=== PATIENT | female | born 1965 | race Caucasian/White ===

== ENCOUNTER 2018-05-09 13:01 | Inpatient (IN) ==
[2018-05-09] MEDS ORDERED: Haloperidol Lactate 5 MG/ML VIAL IM ONE (13:27)
--- NOTE | 2018-05-09 13:27 | Emergency Department Note ---
Disposition Clinical Impression: Suicidal ideation, Elevated troponin, MICHELE (acute kidney injury) Altered mental status Qualifiers: Altered mental status type: unspecified Qualified Code(s): R41.82 - Altered mental status, unspecified Disposition: Admitted As Inpatient Condition: Fair Altered Mental Status HPI - General Chief Complaint: ED Altered Mental Status Stated Complaint: AMS Time Seen by Provider: 05/09/18 13:08 Source: EMS Mode of arrival: EMS Limitations: altered mental status Nursing Notes Reviewed: Yes Vital Signs Reviewed: Yes - History of Present Illness HPI Narrative: 52-year-old female history of anxiety, depression, hypertension, seizures, intracranial aneurysm with clipping 3 years ago who presents to the ER due to altered mental status. History is obtained by her son. States he last spoke to her on the phone at 5 PM yesterday. She was mentating normal at that time. He went to her house today and found her altered. States that her weekly medications were missing from her pill counter that he makes. Denies a prior history of her trying to injure herself. The patient states that they lost his brother roughly 2 years ago and she has been speaking about him more lately. At the time of arrival the patient is alert however she requires frequent redirection and does not follow commands. She voiced in the room that she no longer wanted to live. History is unobtainable in any other way. complaint: altered mental status Onset (ago): day(s) Time: 17:00 Timing confirmed by: family member Context: history psychiatric disease - Related Data Home Medications Medication Instructions Recorded Confirmed DULoxetine [Cymbalta] 90 mg PO DAILY 05/09/18 05/09/18 Donepezil [Aricept] 5 mg PO HS 05/09/18 05/09/18 Famotidine [Pepcid] 20 mg PO BID 05/09/18 05/09/18 Folic Acid 1 mg PO DAILY 05/09/18 05/09/18 Gabapentin [Neurontin] 1,200 mg PO TID 05/09/18 05/09/18 LevETIRAcetam [Keppra] 500 mg PO Q12H 05/09/18 05/09/18 Levothyroxine [Synthroid] 100 mcg PO Q48H 05/09/18 05/09/18 Levothyroxine [Synthroid] 112 mcg PO Q48H 05/09/18 05/09/18 Lisinopril [Zestril] 5 mg PO DAILY 05/09/18 05/09/18 Melatonin [Melatin] 3 mg PO HS 05/09/18 05/09/18 Metoprolol [Lopressor] 12.5 mg PO BID 05/09/18 05/09/18 Pravastatin Sodium 10 mg PO QPM 05/09/18 05/09/18 Topiramate [Topamax] 25 mg PO BID 05/09/18 05/09/18 diazePAM [Valium] 5 mg PO TID PRN 05/09/18 05/09/18 traZODone [TraZODone] 50 mg PO HS PRN 05/09/18 05/09/18 Allergies Allergy/AdvReac Type Severity Reaction Status Date / Time Sulfa (Sulfonamide AdvReac Hives Verified 05/09/18 13:14 Antibiotics) Limitations: ROS unobtainable due to patients medical condition Past Medical History - Past Medical History Attestation: Yes The following information was validated with the patient. Source: old records reviewed, obtained from family Medical history: Reports: arthritis, CVA, diabetes, GERD, hyperlipidemia, hypertension, thyroid disease, other Surgical history: Reports: other (Surgical history includes what is described as a craniotomy) Psychiatric history: Reports: anxiety, depression - Social History Smoking Status: Current every day smoker Smokeless Tobacco Status: No Alcohol use: Reports: none Drug use: Reports: none Physical Exam - General Limitations: altered mental status General appearance: alert, anxious - Head Head exam: atraumatic, normocephalic, normal inspection - Eye Eye exam: Present: normal appearance - ENT ENT exam: normal exam - Neck Neck exam: Present: normal inspection - Chest Chest inspection: Present: normal inspection, symmetric chest wall rise - Respiratory Respiratory exam: Present: normal lung sounds bilaterally - Cardiovascular Cardiovascular exam: Present: regular rate, normal rhythm, normal heart sounds - Abdominal Exam Abdominal exam: Present: soft. Absent: distention, rigidity - Extremities Exam Extremities exam: Present: normal inspection, full ROM - Expanded Upper Extremity Exam Shoulder exam: Present: normal inspection, full ROM Arm exam: Present: normal inspection, full ROM Elbow exam: Present: normal inspection, full ROM Forearm/Wrist exam: Present: normal inspection, full ROM Hand exam: Present: normal inspection, full ROM - Expanded Lower Extremity Exam Hip/Pelvis exam: Present: normal inspection, full ROM Upper leg exam: Present: normal inspection, full ROM Knee exam: Present: normal inspection, full ROM Lower leg exam: Present: normal inspection, full ROM Ankle exam: Present: normal inspection, full ROM Foot/toe exam: Present: normal inspection, full ROM - Neurological Exam Neurological exam: Present: alert, other (Patient does not follow commands. She moves all extremities equally. Requires frequent redirection.) - Psychiatric Psychiatric exam: Present: anxious, suicidal ideation - Expanded Psychiatric Exam Expanded psych exam: Present: flight of ideas, uncooperative - Skin Skin exam: Present: warm, dry Course Course Narrative: Patient seen and examined. Vital signs reviewed. Spoke with the quality technician fiberglass to obtain a medication list as the patient's son is unfamiliar with all of her medications. Plan for EKG, CT head given her prior history of intracranial aneurysm, labs, urinalysis. Patient is pink slipped for concern for possible drug ingestion and voicing suicidal thoughts. Vital Signs Temperature 97.8 F 05/09/18 13:07 Pulse Rate 80 05/09/18 13:07 Respiratory Rate 16 05/09/18 13:07 Blood Pressure 123/76 05/09/18 13:07 O2 Sat by Pulse Oximetry 100 05/09/18 13:07 Temperature 97.8 F 05/09/18 13:07 Pulse Rate 67 05/09/18 15:47 Respiratory Rate 17 05/09/18 15:47 Blood Pressure 113/79 05/09/18 15:47 O2 Sat by Pulse Oximetry 99 05/09/18 15:47 Oxygen Delivery Oxygen Delivery Room Air Altered Mental Status - [facility] Narrative Medical decision making narrative: 52-year-old female presents due to altered mental status. There was concern that she had multiple drug ingestions as her pills were missing at home for the end of the week. She voices here that she no longer wants to live. There are life stressors going on in her life with the anniversary of her son passing 2 years ago coming up. He would not Yolanda stable here. Her workup demonstrates a normal head CT with postsurgical changes. She does have renal insufficiency which appears new as well as an elevated troponin of 0.06 with a normal- appearing EKG. Intervals are within normal limits. Patient was given IV fluids. Case discussed with the hospitalist. Admitted for medical observation and psychiatric evaluation. - Lab Data Lab results reviewed: Yes I reviewed the patient's lab results. Result diagrams: 05/09/18 13:34 05/09/18 14:24 Lab Results 05/09/18 05/09/18 05/09/18 Range/Units 13:25 13:34 14:24 WBC 7.9 (4.3-11.1) K/mcL RBC 5.05 H (3.82-4.97) M/mcL Hgb 16.2 H (11.5-15.4) g/dL Hct 46.4 H (35.3-44.9) % MCV 91.9 (83.0-100.0) fL MCH 32.1 (28.0-33.3) pg MCHC 34.9 (31.6-35.5) g/dL RDW 13.1 (11.5-14.5) % Plt Count 382 (140-400) K/mcL MPV 10.1 (9.4-12.4) fL Immature Gran % 0.8 (0-4) % Seg Neutrophils % 71.8 % Lymphocytes % 15.3 % Monocytes % 7.2 % Eosinophils % 3.9 % Basophils % 1.0 % Neutrophils # 5.7 (1.6-8.9) K/mcL Lymphocytes # 1.2 (0.6-4.6) K/mcL Monocytes # 0.6 (0.0-1.3) K/mcL Eosinophils # 0.3 (0.0-0.6) K/mcL Basophils # 0.1 (0.0-0.2) K/mcL PT 11.6 (9.4-12.1) Seconds INR 1.0 APTT 29.4 (26.0-36.0) Seconds Sodium 138 (136-145) mEq/L Potassium 3.0 L (3.5-5.1) mEq/L Chloride 110 H (98-107) mEq/L Carbon Dioxide 19 L (23-29) mEq/L BUN 37 H (6-20) mg/dL Creatinine 2.36 H (0.60-1.20) mg/dL Est GFR ( Amer) 26 L (> 60) Est GFR (Non-Af Amer) 22 L (> 60) BUN/Creatinine Ratio 16 (6-26) Glucose 91 (70-105) mg/dL Calculated Osmolality 294 (280-300) Calcium 8.7 (8.6-10.3) mg/dL Magnesium 1.9 (1.6-2.6) mg/dL Total Bilirubin 0.4 (0.3-1.0) mg/dL Direct Bilirubin 0.2 (0.0-0.2) mg/dL Indirect Bilirubin 0.2 (0.0-1.2) mg/dL AST 15 (13-39) Units/L ALT 18 (7-52) Units/L Alkaline Phosphatase 43 (34-104) Units/L Ammonia (16-53) mcmol/L Troponin I 0.06 H* (< 0.04) ng/mL Serum Total Protein 6.7 (6.4-8.9) g/dL Albumin 3.9 (3.5-5.7) g/dL Globulin 2.8 (2.4-3.5) g/dL Albumin/Globulin Ratio 1.4 (1.1-2.2) TSH 0.865 (0.340-5.600) mcIU/mL Urine Color (Yellow) Urine Clarity (Clear) Urine pH (5.0-8.0) pH Units Ur Specific Liguori (1.010-1.025) Urine Protein (Neg-Trace) mg/dL Urine Glucose (UA) (Normal) mg/dL Urine Ketones (Negative) mg/dL Urine Blood (Negative) Urine Nitrite (Negative) Urine Bilirubin (Negative) Urine Urobilinogen (Normal) mg/dL Ur Leukocyte Esterase (Negative) Urine Microscopic RBC (0-3) per hpf Urine Microscopic WBC (0-3) per hpf Ur Squamous Epith Cells (None-Few) per lpf Urine Bacteria (None-Few) per hpf Hyaline Casts (None-Few) per lpf Ur Culture Indicated? (NO) Salicylates < 2.5 L (15.0-30.0) mg/dL Urine Opiates Screen (Ihfyvf=458) ng/mL Acetaminophen < 10 L (10-20) mcg/mL Ur Barbiturates Screen (Dsidyb=501) ng/mL Ur Phencyclidine Scrn (Cutoff=25) ng/mL Ur Amphetamines Screen (Frfwru=9901) ng/mL U Benzodiazepines Scrn (Ewfxny=570) ng/mL Urine Cocaine Screen (Cutoff= 300) ng/mL U Marijuana (THC) Screen (Cutoff = 50) ng/mL Ur Drug Screen Interp Ethyl Alcohol < 10 (Less than 10) mg/dL 05/09/18 05/09/18 05/09/18 Range/Units 15:10 15:10 15:33 WBC (4.3-11.1) K/mcL RBC (3.82-4.97) M/mcL Hgb (11.5-15.4) g/dL Hct (35.3-44.9) % MCV (83.0-100.0) fL MCH (28.0-33.3) pg MCHC (31.6-35.5) g/dL RDW (11.5-14.5) % Plt Count (140-400) K/mcL MPV (9.4-12.4) fL Immature Gran % (0-4) % Seg Neutrophils % % Lymphocytes % % Monocytes % % Eosinophils % % Basophils % % Neutrophils # (1.6-8.9) K/mcL Lymphocytes # (0.6-4.6) K/mcL Monocytes # (0.0-1.3) K/mcL Eosinophils # (0.0-0.6) K/mcL Basophils # (0.0-0.2) K/mcL PT (9.4-12.1) Seconds INR APTT (26.0-36.0) Seconds Sodium (136-145) mEq/L Potassium (3.5-5.1) mEq/L Chloride (98-107) mEq/L Carbon Dioxide (23-29) mEq/L BUN (6-20) mg/dL Creatinine (0.60-1.20) mg/dL Est GFR ( Amer) (> 60) Est GFR (Non-Af Amer) (> 60) BUN/Creatinine Ratio (6-26) Glucose (70-105) mg/dL Calculated Osmolality (280-300) Calcium (8.6-10.3) mg/dL Magnesium (1.6-2.6) mg/dL Total Bilirubin (0.3-1.0) mg/dL Direct Bilirubin (0.0-0.2) mg/dL Indirect Bilirubin (0.0-1.2) mg/dL AST (13-39) Units/L ALT (7-52) Units/L Alkaline Phosphatase (34-104) Units/L Ammonia 34 (16-53) mcmol/L Troponin I (< 0.04) ng/mL Serum Total Protein (6.4-8.9) g/dL Albumin (3.5-5.7) g/dL Globulin (2.4-3.5) g/dL Albumin/Globulin Ratio (1.1-2.2) TSH (0.340-5.600) mcIU/mL Urine Color Yellow (Yellow) Urine Clarity Cloudy A (Clear) Urine pH 5.0 (5.0-8.0) pH Units Ur Specific Liguori 1.014 (1.010-1.025) Urine Protein Negative (Neg-Trace) mg/dL Urine Glucose (UA) Normal (Normal) mg/dL Urine Ketones Negative (Negative) mg/dL Urine Blood Negative (Negative) Urine Nitrite Negative (Negative) Urine Bilirubin Negative (Negative) Urine Urobilinogen Normal (Normal) mg/dL Ur Leukocyte Esterase Negative (Negative) Urine Microscopic RBC 5-15 H (0-3) per hpf Urine Microscopic WBC 0-3 (0-3) per hpf Ur Squamous Epith Cells Many H (None-Few) per lpf Urine Bacteria Many H (None-Few) per hpf Hyaline Casts None Seen (None-Few) per lpf Ur Culture Indicated? NO (NO) Salicylates (15.0-30.0) mg/dL Urine Opiates Screen Negative (Lqgysk=306) ng/mL Acetaminophen (10-20) mcg/mL Ur Barbiturates Screen Negative (Hckgoy=705) ng/mL Ur Phencyclidine Scrn Negative (Cutoff=25) ng/mL Ur Amphetamines Screen Positive H (Yuoroh=9402) ng/mL U Benzodiazepines Scrn Positive H (Kktmna=470) ng/mL Urine Cocaine Screen Negative (Cutoff= 300) ng/mL U Marijuana (THC) Screen Positive H (Cutoff = 50) ng/mL Ur Drug Screen Interp See Below Ethyl Alcohol (Less than 10) mg/dL - Radiology Data Radiology results reviewed: Yes I reviewed the patient's radiology results. Chest X-Ray 05/09/18 13:25 IMPRESSION: 1. No active pulmonary disease. D/ / Nikko Mcknight MD / Nikko Mcknight MD Interpreting Provider: Nikko Mcknight MD Head CT 05/09/18 13:26 IMPRESSION: 1. No acute intracranial abnormality. 2. Embolization coils are again seen in the region of the basilar artery is well as an aneurysm clip within the left middle cranial fossa. 3. 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 D/ / Ayo Escobar MD / Ayo Escobar MD Interpreting Provider: Ayo Escobar MD - EKG Data EKG attestation: Yes I reviewed and interpreted this EKG. EKG results narrative: EKG demonstrates normal sinus rhythm rate 74 bpm. Normal axis. Normal intervals. Normal R-wave progression. No gross ST elevations or depressions. No acute ischemic findings. No significant changes from previous EKG dated 02/27. TPA Checklist - LKW: 3-4.5 hrs Add. Warnings/Precautions Patient/family understanding: The patient/family members have been counseled and understood the risk, benefit , and alternatives of treatment. S.B.AEvie - Joao.B.AEvie Situation: Demographics, MOA Background: Presenting Complaint, Relevant PMH, Meds, & Allergies Assessment: Course and respsone to treatment, Exam Concerns, Patient/Family Expectation, Pertinant Lab Results Recommendation: Barrier(s) to disposition, Recommendation based on pending studies, treatments, or consults S.B.A.RRoldan Report Given to: Dr. Alirio Gan Repor Time: 16:32
[2018-05-09] MEDS ORDERED: 0.9 % Sodium Chloride 1,000 ML IVC ONE ×2 (13:29→16:13)
--- NOTE | 2018-05-09 13:59 | Emergency Department Note ---
Disposition Clinical Impression: Suicidal ideation, Elevated troponin, MICHELE (acute kidney injury) Altered mental status Qualifiers: Altered mental status type: unspecified Qualified Code(s): R41.82 - Altered mental status, unspecified Disposition: Admitted As Inpatient Condition: Fair General Adult HPI - General Chief complaint: ED Altered Mental Status Stated complaint: AMS Time Seen by Provider: 05/09/18 13:08 Source: EMS Mode of arrival: ambulatory Limitations: no limitations Nursing Notes Reviewed: Yes Vital Signs Reviewed: Yes - History of Present Illness Pain Scale: 0 - Related Data Home Medications Medication Instructions Recorded Confirmed DULoxetine [Cymbalta] 90 mg PO DAILY 05/09/18 05/09/18 Donepezil [Aricept] 5 mg PO HS 05/09/18 05/09/18 Famotidine [Pepcid] 20 mg PO BID 05/09/18 05/09/18 Folic Acid 1 mg PO DAILY 05/09/18 05/09/18 Gabapentin [Neurontin] 1,200 mg PO TID 05/09/18 05/09/18 LevETIRAcetam [Keppra] 500 mg PO Q12H 05/09/18 05/09/18 Levothyroxine [Synthroid] 100 mcg PO Q48H 05/09/18 05/09/18 Levothyroxine [Synthroid] 112 mcg PO Q48H 05/09/18 05/09/18 Lisinopril [Zestril] 5 mg PO DAILY 05/09/18 05/09/18 Melatonin [Melatin] 3 mg PO HS 05/09/18 05/09/18 Metoprolol [Lopressor] 12.5 mg PO BID 05/09/18 05/09/18 Pravastatin Sodium 10 mg PO QPM 05/09/18 05/09/18 Topiramate [Topamax] 25 mg PO BID 05/09/18 05/09/18 diazePAM [Valium] 5 mg PO TID PRN 05/09/18 05/09/18 traZODone [TraZODone] 50 mg PO HS PRN 05/09/18 05/09/18 Allergies Allergy/AdvReac Type Severity Reaction Status Date / Time Sulfa (Sulfonamide AdvReac Hives Verified 05/09/18 13:14 Antibiotics) Past Medical History - Past Medical History Medical history: Reports: arthritis, CVA, diabetes, GERD, hyperlipidemia, hypertension, thyroid disease, other Surgical history: Reports: other (Surgical history includes what is described as a craniotomy) Psychiatric history: Reports: anxiety, depression - Social History Smoking Status: Current every day smoker Smokeless Tobacco Status: No Alcohol use: Reports: none Drug use: Reports: none Physical Exam - General General appearance: alert Course Vital Signs Temperature 97.8 F 05/09/18 13:07 Pulse Rate 80 05/09/18 13:07 Respiratory Rate 16 05/09/18 13:07 Blood Pressure 123/76 05/09/18 13:07 O2 Sat by Pulse Oximetry 100 05/09/18 13:07 Temperature 97.8 F 05/09/18 13:07 Pulse Rate 71 05/09/18 16:59 Respiratory Rate 17 05/09/18 16:59 Blood Pressure 117/76 05/09/18 16:59 O2 Sat by Pulse Oximetry 100 05/09/18 16:59 Oxygen Delivery Oxygen Delivery Room Air Medical Decision Making - Lab Data Result diagrams: 05/09/18 13:34 05/09/18 14:24 Lab Results 05/09/18 05/09/18 05/09/18 Range/Units 13:25 13:34 14:24 WBC 7.9 (4.3-11.1) K/mcL RBC 5.05 H (3.82-4.97) M/mcL Hgb 16.2 H (11.5-15.4) g/dL Hct 46.4 H (35.3-44.9) % MCV 91.9 (83.0-100.0) fL MCH 32.1 (28.0-33.3) pg MCHC 34.9 (31.6-35.5) g/dL RDW 13.1 (11.5-14.5) % Plt Count 382 (140-400) K/mcL MPV 10.1 (9.4-12.4) fL Immature Gran % 0.8 (0-4) % Seg Neutrophils % 71.8 % Lymphocytes % 15.3 % Monocytes % 7.2 % Eosinophils % 3.9 % Basophils % 1.0 % Neutrophils # 5.7 (1.6-8.9) K/mcL Lymphocytes # 1.2 (0.6-4.6) K/mcL Monocytes # 0.6 (0.0-1.3) K/mcL Eosinophils # 0.3 (0.0-0.6) K/mcL Basophils # 0.1 (0.0-0.2) K/mcL PT 11.6 (9.4-12.1) Seconds INR 1.0 APTT 29.4 (26.0-36.0) Seconds Sodium 138 (136-145) mEq/L Potassium 3.0 L (3.5-5.1) mEq/L Chloride 110 H (98-107) mEq/L Carbon Dioxide 19 L (23-29) mEq/L BUN 37 H (6-20) mg/dL Creatinine 2.36 H (0.60-1.20) mg/dL Est GFR ( Amer) 26 L (> 60) Est GFR (Non-Af Amer) 22 L (> 60) BUN/Creatinine Ratio 16 (6-26) Glucose 91 (70-105) mg/dL Calculated Osmolality 294 (280-300) Calcium 8.7 (8.6-10.3) mg/dL Magnesium 1.9 (1.6-2.6) mg/dL Total Bilirubin 0.4 (0.3-1.0) mg/dL Direct Bilirubin 0.2 (0.0-0.2) mg/dL Indirect Bilirubin 0.2 (0.0-1.2) mg/dL AST 15 (13-39) Units/L ALT 18 (7-52) Units/L Alkaline Phosphatase 43 (34-104) Units/L Ammonia (16-53) mcmol/L Troponin I 0.06 H* (< 0.04) ng/mL Serum Total Protein 6.7 (6.4-8.9) g/dL Albumin 3.9 (3.5-5.7) g/dL Globulin 2.8 (2.4-3.5) g/dL Albumin/Globulin Ratio 1.4 (1.1-2.2) TSH 0.865 (0.340-5.600) mcIU/mL Urine Color (Yellow) Urine Clarity (Clear) Urine pH (5.0-8.0) pH Units Ur Specific Stem (1.010-1.025) Urine Protein (Neg-Trace) mg/dL Urine Glucose (UA) (Normal) mg/dL Urine Ketones (Negative) mg/dL Urine Blood (Negative) Urine Nitrite (Negative) Urine Bilirubin (Negative) Urine Urobilinogen (Normal) mg/dL Ur Leukocyte Esterase (Negative) Urine Microscopic RBC (0-3) per hpf Urine Microscopic WBC (0-3) per hpf Ur Squamous Epith Cells (None-Few) per lpf Urine Bacteria (None-Few) per hpf Hyaline Casts (None-Few) per lpf Ur Culture Indicated? (NO) Salicylates < 2.5 L (15.0-30.0) mg/dL Urine Opiates Screen (Uqrpcy=695) ng/mL Acetaminophen < 10 L (10-20) mcg/mL Ur Barbiturates Screen (Xykvlp=598) ng/mL Ur Phencyclidine Scrn (Cutoff=25) ng/mL Ur Amphetamines Screen (Idkyve=2916) ng/mL U Benzodiazepines Scrn (Kbpmlw=083) ng/mL Urine Cocaine Screen (Cutoff= 300) ng/mL U Marijuana (THC) Screen (Cutoff = 50) ng/mL Ur Drug Screen Interp Ethyl Alcohol < 10 (Less than 10) mg/dL 05/09/18 05/09/18 05/09/18 Range/Units 15:10 15:10 15:33 WBC (4.3-11.1) K/mcL RBC (3.82-4.97) M/mcL Hgb (11.5-15.4) g/dL Hct (35.3-44.9) % MCV (83.0-100.0) fL MCH (28.0-33.3) pg MCHC (31.6-35.5) g/dL RDW (11.5-14.5) % Plt Count (140-400) K/mcL MPV (9.4-12.4) fL Immature Gran % (0-4) % Seg Neutrophils % % Lymphocytes % % Monocytes % % Eosinophils % % Basophils % % Neutrophils # (1.6-8.9) K/mcL Lymphocytes # (0.6-4.6) K/mcL Monocytes # (0.0-1.3) K/mcL Eosinophils # (0.0-0.6) K/mcL Basophils # (0.0-0.2) K/mcL PT (9.4-12.1) Seconds INR APTT (26.0-36.0) Seconds Sodium (136-145) mEq/L Potassium (3.5-5.1) mEq/L Chloride (98-107) mEq/L Carbon Dioxide (23-29) mEq/L BUN (6-20) mg/dL Creatinine (0.60-1.20) mg/dL Est GFR ( Amer) (> 60) Est GFR (Non-Af Amer) (> 60) BUN/Creatinine Ratio (6-26) Glucose (70-105) mg/dL Calculated Osmolality (280-300) Calcium (8.6-10.3) mg/dL Magnesium (1.6-2.6) mg/dL Total Bilirubin (0.3-1.0) mg/dL Direct Bilirubin (0.0-0.2) mg/dL Indirect Bilirubin (0.0-1.2) mg/dL AST (13-39) Units/L ALT (7-52) Units/L Alkaline Phosphatase (34-104) Units/L Ammonia 34 (16-53) mcmol/L Troponin I (< 0.04) ng/mL Serum Total Protein (6.4-8.9) g/dL Albumin (3.5-5.7) g/dL Globulin (2.4-3.5) g/dL Albumin/Globulin Ratio (1.1-2.2) TSH (0.340-5.600) mcIU/mL Urine Color Yellow (Yellow) Urine Clarity Cloudy A (Clear) Urine pH 5.0 (5.0-8.0) pH Units Ur Specific Stem 1.014 (1.010-1.025) Urine Protein Negative (Neg-Trace) mg/dL Urine Glucose (UA) Normal (Normal) mg/dL Urine Ketones Negative (Negative) mg/dL Urine Blood Negative (Negative) Urine Nitrite Negative (Negative) Urine Bilirubin Negative (Negative) Urine Urobilinogen Normal (Normal) mg/dL Ur Leukocyte Esterase Negative (Negative) Urine Microscopic RBC 5-15 H (0-3) per hpf Urine Microscopic WBC 0-3 (0-3) per hpf Ur Squamous Epith Cells Many H (None-Few) per lpf Urine Bacteria Many H (None-Few) per hpf Hyaline Casts None Seen (None-Few) per lpf Ur Culture Indicated? NO (NO) Salicylates (15.0-30.0) mg/dL Urine Opiates Screen Negative (Wdhdwg=400) ng/mL Acetaminophen (10-20) mcg/mL Ur Barbiturates Screen Negative (Nivmtu=787) ng/mL Ur Phencyclidine Scrn Negative (Cutoff=25) ng/mL Ur Amphetamines Screen Positive H (Vkzenn=1840) ng/mL U Benzodiazepines Scrn Positive H (Cuvfae=107) ng/mL Urine Cocaine Screen Negative (Cutoff= 300) ng/mL U Marijuana (THC) Screen Positive H (Cutoff = 50) ng/mL Ur Drug Screen Interp See Below Ethyl Alcohol (Less than 10) mg/dL Attestation Statement - Attestation Attestation: I have discussed the case with the resident physician Dr. Baires. I have personally performed a history, physical exam, and my own medical decision making. I have reviewed the note and agree with the findings and plan. Patient with history of anxiety depression, hypertension, hyperlipidemia, previous CVA requiring aneurysm clipping presents to emergency department for altered mental status. Last known well was 5 PM. Patient has been talking about her son that 2 years ago with increasing frequency. Described wish to no longer be living. Patient gets a weeks worth of medications distributed on Sundays by her son. Upon evaluation today she had no medication left. This simply for approximately 3 days worth of medication for her to take. Patient's medication list was obtained with the help of pharmacy. Patient takes multiple medications including, pravastatin, Pepcid, metoprolol, lisinopril, donepezil, Keppra, folic acid, gabapentin, Cymbalta, Topamax, trazodone, Valium, melatonin , Synthroid. Patient was agitated in the room and received 5 mg of Haldol. Upon my evaluation the patient was resting comfortably in bed. Patient was easily arousable to verbal stimuli. Patient followed all commands. Patient repeated "I need to be here". And was unable to get other significant history. Son was at bedside stating his concern for possible intentional ingestion of 2 much medication. Patient's heart rate and blood pressure stable. She is in no respiratory distress. No physical exam findings consistent with trauma. Please see resident physician's note for further details and disposition.
[2018-05-09 14:31] LABS: Basophils # 0.1 K/mcL (0.0-0.2); Eosinophils # 0.3 K/mcL (0.0-0.6); Eosinophils % 3.9 %; Hematocrit 46.4 % (35.3-44.9); Hemoglobin 16.2 g/dL (11.5-15.4); Immature Granulocytes % 0.8 % (0-4); Lymphocytes # 1.2 K/mcL (0.6-4.6); Lymphocytes % 15.3 %; Mean Corpuscular HGB Conc 34.9 g/dL (31.6-35.5); Mean Corpuscular Hemoglobin 32.1 pg (28.0-33.3); Mean Corpuscular Volume 91.9 fL (83.0-100.0); Mean Platelet Volume 10.1 fL (9.4-12.4); Monocytes # 0.6 K/mcL (0.0-1.3); Monocytes % 7.2 %; Neutrophils # 5.7 K/mcL (1.6-8.9); Platelet Count 382 K/mcL (140-400); Red Blood Count 5.05 M/mcL (3.82-4.97); Red Cell Distribution Width 13.1 % (11.5-14.5); Segmented Neutrophils % 71.8 %
[2018-05-09 14:38] LABS: Prothrombin Time 11.6 Seconds (9.4-12.1)
[2018-05-09 14:41] LABS: Activated Partial Thrombo Time 29.4 Seconds (26.0-36.0)
[2018-05-09 15:25] LABS: Bilirubin,Urine Negative (Negative); Blood,Urine Negative (Negative); Clarity,Urine Cloudy (Clear); Color,Urine Yellow (Yellow); Glucose,Urine (UA) Normal (Normal); Ketones,Urine Negative (Negative); Leukocyte Esterase,Urine Negative (Negative); Nitrite,Urine Negative (Negative); Protein,Urine Negative (Neg-Trace); Specific Gravity,Urine 1.014 (1.010-1.025); Urobilinogen,Urine Normal (Normal)
[2018-05-09 15:27] LABS: Squamous Epithelial Cell,Urine Many per lpf (None-Few); WBC,Urine 0-3 per hpf (0-3)
[2018-05-09 15:43] LABS: Bacteria,Urine Many per hpf (None-Few); Hyaline Casts,Urine None Seen per lpf (None-Few)
[2018-05-09 16:11] LABS: Acetaminophen < 10 mcg/mL (10-20); Alanine Aminotransferase 18 Units/L (7-52); Albumin 3.9 g/dL (3.5-5.7); Albumin/Globulin Ratio 1.4 (1.1-2.2); Alkaline Phosphatase 43 Units/L (34-104); Aspartate Amino Transferase 15 Units/L (13-39); BUN/Creatinine Ratio 16 (6-26); Bilirubin,Direct 0.2 mg/dL (0.0-0.2); Bilirubin,Indirect 0.2 mg/dL (0.0-1.2); Bilirubin,Total 0.4 mg/dL (0.3-1.0); Blood Urea Nitrogen 37 mg/dL (6-20); Calcium 8.7 mg/dL (8.6-10.3); Carbon Dioxide 19 mEq/L (23-29); Chloride 110 mEq/L (98-107); Ethanol < 10 mg/dL (Less than 10); Globulin 2.8 g/dL (2.4-3.5); Glucose 91 mg/dL (70-105); Magnesium 1.9 mg/dL (1.6-2.6); Osmolality,Calculated 294 (280-300); Salicylate < 2.5 mg/dL (15.0-30.0); Sodium 138 mEq/L (136-145); Total Protein 6.7 g/dL (6.4-8.9); eGFR For Non-African Americans 22 (> 60)
[2018-05-09 16:17] LABS: Troponin I 0.06 ng/mL (< 0.04)
[2018-05-09 16:26] LABS: Thyroid Stimulating Hormone 0.865 mcIU/mL (0.340-5.600)
[2018-05-09 16:31] LABS: Amphetamine Screen,Urine Positive ng/mL (Cutoff=1000); Barbiturate Screen,Urine Negative ng/mL (Cutoff=200); Benzodiazepines Screen,Urine Positive ng/mL (Cutoff=200); Cannabinoid Screen,Urine Positive ng/mL (Cutoff = 50); Cocaine Screen,Urine Negative ng/mL (Cutoff= 300); Opiate Screen,Urine Negative ng/mL (Cutoff=300); Phencyclidine Screen,Urine Negative ng/mL (Cutoff=25)
[2018-05-09] MEDS ORDERED: Naloxone 0.4 MG/ML INJ IVP PRN (17:31)
[2018-05-09] MEDS ORDERED: Acetaminophen 325 MG TABLET PO PRN (17:31)
[2018-05-09] MEDS ORDERED: *HR* LORazepam 2 MG/ML VIAL IVP PRN (17:54)
[2018-05-09] MEDS ORDERED: Haloperidol Lactate 5 MG/ML VIAL IVP PRN (18:04)
[2018-05-09] MEDS ORDERED: Potassium Chloride 20 MEQ, Lidocaine 1% 2 ML in D5% in Water 250 ML IVPB ONE (18:06)
--- NOTE | 2018-05-09 18:17 | Internal Med History&Physical ---
<WillisPipe Orourke - Last Filed: 05/09/18 19:17> Date of Encounter: 05/09/18 Time of Encounter: 17:30 Internal Medicine - H&P: HPI Chief complaint: AMS/Possible OD Admitted From: Emergency Dept Plans for Post Hospital Care: Home History of present illness: Ms. 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 3 years ago presents from the ED w/CC of AMS and possible OD at home. Pts. son reports he spoke to pt. yesterday evening at 5 p.m. and pt. was fine. Went to see her today and it took over an hour for her to open the door. Reports pt. was altered. States this has never happened before. Son reports he organizes pts. pills for the week but today, the pills for F/S/Hudson were all missing. Unclear if pt. took medications or if someone took from her home. Pts. son reports that his cousins sometimes bring drugs to pts. house. Urine tox screen positive for amphetamines, benzodiazepines, and marijuana. Pts. son denies recent illness, fever, chills, nausea, vomiting, chest pain, shortness of breath, unusual bleeding, abdominal pain, diarrhea, constipation, dizziness, lightheadedness, numbness, tingling, pre-syncope, or syncope. Past Med Surg Social Fam HX - Past Medical History Source: old records reviewed, obtained from family Medical history: arthritis, CVA, GERD, hyperlipidemia, hypertension, thyroid disease, other Additional medical history: x2 brain surgeries from aneursym Psychiatric history: anxiety, depression, PTSD, prior suicide attempt, previous psychiatric hospitalization (Approx. 3 years ago) - Past Surgical History Surgical History: hysterectomy (Total), other Additional surgical history: BRAIN SURGERY X 4, FACIAL SURGERY - Social History Smoking Status: Current every day smoker Packs per day: 1 PPD Smokeless Tobacco Status: No Alcohol use: none Drug use: none Current living situation: Home - Independent Activity Level: Uses cane/walker Recent Out of Country Travel Within the Last 8 Weeks: No Exposure or Possible Exposure to Illness During Travel: No - Family History Father History Unknown: Yes Adopted: No ([employer]) Mother History Unknown: Yes Adopted: No ([employer]) Brother History Unknown: Yes Adopted: No ([employer]) Sister History Unknown: Yes Adopted: No ([employer]) Son Race: Family Member Ethnicity: Non- Living Status: Cause of : OD Hx Family Psychosocial Disorders: Yes (Drug abuse) Internal Medicine - H&P: Meds DULoxetine [Cymbalta] 90 mg PO DAILY 05/09/18 [History] Donepezil [Aricept] 5 mg PO HS 05/09/18 [History] Famotidine [Pepcid] 20 mg PO BID 05/09/18 [History] Folic Acid 1 mg PO DAILY 05/09/18 [History] Gabapentin [Neurontin] 1,200 mg PO TID 05/09/18 [History] LevETIRAcetam [Keppra] 500 mg PO Q12H 05/09/18 [History] Levothyroxine [Synthroid] 100 mcg PO Q48H 05/09/18 [History] Levothyroxine [Synthroid] 112 mcg PO Q48H 05/09/18 [History] Lisinopril [Zestril] 5 mg PO DAILY 05/09/18 [History] Melatonin [Melatin] 3 mg PO HS 05/09/18 [History] Metoprolol [Lopressor] 12.5 mg PO BID 05/09/18 [History] Pravastatin Sodium 10 mg PO QPM 05/09/18 [History] Topiramate [Topamax] 25 mg PO BID 05/09/18 [History] diazePAM [Valium] 5 mg PO TID PRN 05/09/18 [History] traZODone [TraZODone] 50 mg PO HS PRN 05/09/18 [History] 3 Allergy/AdvReac Type Severity Reaction Status Date / Time Sulfa (Sulfonamide AdvReac Hives Verified 05/09/18 13:14 Antibiotics) ROS unobtainable: due to mental status All Systems PM: A 10-system review of systems was performed and is negative for pertinent findings except as documented above in the HPI. - Constitutional Vitals: Temp Pulse Resp BP Pulse Ox 97.0 F L 69 18 124/83 99 05/09/18 17:52 05/09/18 17:52 05/09/18 17:52 05/09/18 17:52 05/09/18 17:52 General appearance: Present: A&O X 0 Exam: Pt. examined at bedside in ED post-administration of Haldo. Pt. is sleeping and all information taken from her son. Son is unsure if pt. took medications or if this was an OD. Pts. son reports that pt. has been depressed regarding her other son's OD two years ago and has been stating that she no longer wishes to live. Pt. voiced this in the ED today as well. VS stable. Pt. is protecting her airway. Suicide precautions. Seizure precautions. Aspiration precautions. Falls/safety precautions and up with assist only. Sitter ordered. Psychiatric consult ordered and discussed w/1A. Pt. to be monitored closely for signs of anxiety/agitation r/t withdrawal. Continuous cardiac telemetry. - Head Head exam: Present: atraumatic, normocephalic - Eye Eye exam: Present: PERRL, conjuntiva pink, sclera anicteric Pupils: Present: PERRL - ENT ENT exam: Present: normal exam - Neck Neck exam general surgery: Present: normal inspection - Respiratory Respiratory exam: Present: CTAB. Absent: accessory muscle use, rales, rhonchi, wheezes - Cardiovascular Cardiovascular exam: Present: RRR, +S1, +S2. Absent: diastolic murmur, gallop, rubs, systolic murmur - GI/Abdominal GI/Abdominal exam: Present: normal bowel sounds, soft, no peritoneal signs. Absent: distended, tenderness - Rectal Rectal exam: Present: deferred - Additional comments: exam deferred. - Extremities Exam Extremities exam: Present: warm, radial pulses palpable and symmetrical. Absent : calf tenderness, cyanotic, pedal edema - Neurological Exam Neurological exam: Present: altered - Skin Skin exam: Present: dry, intact Internal Med - H&P Results - Labs CBC & Chem 7: 05/09/18 13:34 05/09/18 14:24 - EKG Data EKG shows normal: sinus rhythm - EKG Data Prior EKG available for review: yes EKG comments: 05/09/18 18:24 EKG dated 02/28/16 shows sinus rhythm with first-degree AV block and nonspecific T-wave abnormality. EKG dated 05/09/18 shows sinus rhythm with probable left atrial enlargement and probable left ventricular hypertrophy. - Diagnostic Studies Chest x-ray Additional comments: Impressions Chest X-Ray 05/09/18 13:25 IMPRESSION: 1. No active pulmonary disease. D/ / Nikko Mcknight MD / Nikko Mcknight MD Interpreting Provider: Nikko Mcknight MD CT scan - head Additional comments: Impressions Head CT 05/09/18 13:26 IMPRESSION: 1. No acute intracranial abnormality. 2. Embolization coils are again seen in the region of the basilar artery is well as an aneurysm clip within the left middle cranial fossa. 3. 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 D/ / Ayo Escobar MD / Ayo Escobar MD Interpreting Provider: Ayo Escobar MD - Assessment and plan (1) Encephalopathy acute Current Visit: Yes Status: Acute Assessment and plan: Acute encephalopathy d/t OD or withdrawal versus dehydration versus possible CVA. Pt. 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 Consider repeating CT of the head/brain once mentation improves. OD etiology unclear regarding medications pt. took and intent. CT of the head/brain shows no acute intracranial abnormality, embolization coils are again seen in the region of the basilar artery as well as an aneurysm clip within the left middle cranial fossa, and postsurgical changes of the left calvarium with encephalomalacia involving left frontal and temporal lobes. IVPB Keppra 500 mg BID. 1 mg IVP Ativan Q6HR for agitation/withdrawal. Will add IVP Haldol if warranted. Aspiration precautions. Seizure precautions. Suicide precautions. Falls/safety precautions and up with assist only. Parker catheter. Will convert necessary medications to IVP or IVPB until mentation improves. Consider Neurology consult if pts. mentation does not improve or CVA is suspected. Pt. discussed w/Dr. Amezquita who agrees w.plan of care. Pt. is high risk for further morbidity and complications d/t current encephalopathy from unknown etiology (OD /withdrawal, dehydration, possible CVA), current suicidal ideation requiring pt. to be pink-slipped and have sitter, hx of two active brain aneurysms, hx of seizures requiring IVPB Keppra, elevated troponin, MICHELE, hx, and risk factors. Inpatient. (2) Suicidal ideation Current Visit: Yes Status: Acute Assessment and plan: Acute on chronic suicidal ideation. Pt. voiced that she no longer wanted to live prior to being sedated in ED d/t aggression and anxiety. Pts. son states that she has stated this previously. Son reports that his brother of an OD approx. two years and was found frozen to outside. He states his mother has not been able to accept his . Suicide precautions. Ativan 1 mg IVP Q6HR for agitation/withdrawal. Pt. was pink-slipped by ED @ approx. 13:30 today d/t suicidal ideations. Pt. had previous psychiatric hospitalization approximately 3 years ago according to son. Psychiatry consult ordered and discussed w/1A and I appreciate the consult and recommendations as always. Sitter. (3) MICHELE (acute kidney injury) Current Visit: Yes Status: Acute Assessment and plan: MICHELE w/GFR of 22 and creatinine of 2.36 on admission, likely d/t current dehydration versus possible OD. Limited retroperitoneal US to assess renal function and bladder d/t pts. current encephalopathy/AMS. Monitor I&O and daily weight. Parker catheter placed. Pt. received two 1L boluses of 0.9 NS in ED to be followed by 100 mLs/HR. Monitor f/u labs. Avoid nephrotoxins. (4) Elevated troponin Current Visit: Yes Status: Acute Assessment and plan: Acutely elevated troponin of 0.06 on admission, likely reactive to possible OD. Will trend. Continuous cardiac telemetry. (5) Hypokalemia Current Visit: Yes Status: Acute Assessment and plan: Acute hypokalemia w/potassium of 3.0 on admission. 20 mEq IVPB potassium w/ lidocaine once. Potassium re-check at 00:00. Continuous cardiac telemetry. Monitor pt. and f/u labs. 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 Falls/safety precautions and up with assist only. PT/OT consults ordered. (7) HLD (hyperlipidemia) Current Visit: Yes Status: Chronic Assessment and plan: Hx of chronic HLD. Lipid panel in a.m. labs. Hold pts. PO Pravastatin until pts. mentation improves and pt. passes dysphagia screen. Qualifiers: Hyperlipidemia type: pure hypercholesterolemia Qualified Code(s): E78.00 - Pure hypercholesterolemia, unspecified; E78.0 - Pure hypercholesterolemia (8) HTN (hypertension) Current Visit: Yes Status: Chronic Assessment and plan: Hx of chronic HTN. Hold pts. PO metoprolol and administer 5 mg IVP metoprolol BID. Add hydralazine 10 mg IVP PRN w/parameters. Monitor pt. and VS. Qualifiers: Hypertension type: essential hypertension Qualified Code(s): I10 - Essential (primary) hypertension (9) History of seizures Current Visit: Yes Status: Chronic Assessment and plan: Hx of seizures. Hold pts. current PO Keppra and administer IVPB Keppra at same dosing @ 500 mg BID. Monitor pt. for seizure activity d/t possible withdrawal. Padding to bedrails. Seizure precautions. (10) Thyroid disease Current Visit: Yes Status: Chronic Assessment and plan: Hx of chronic thyroid disease. TSH 0.865 on admission. Will continue pts. PO Synthroid when pt. is no longer altered and passes dysphagia screen. (11) DVT prophylaxis Current Visit: Yes Status: Acute Assessment and plan: Bilateral SCDs on LEs for DVT prophylaxis d/t hx of two active brain aneurysms, two coiled brain aneurysms, and previous brain aneurysm that burst. (12) Positive urine drug screen Current Visit: Yes Status: Acute Assessment and plan: Acutely positive urine drug screen for amphetamines, benzodiazepines, and marijuana. Pts. son unsure if pt. took F/Sa/Hudson medications or if someone took the medications out of the home. Son reports his cousins frequent the pts. home w/drugs. Unclear etiology of pts. intent if pt. has overdosed. IVP Ativan 1 mg Q6HR for withdrawal/agitation. Will Haldol IVP if needed. Sitter. Falls/safety precautions and up with assist only. Aspiration precautions. Dysphagia screen. Pt. NPO w/medications only once dysphagia screen passed and mentation improves. Will hold pts. pain medications for now. - Time Spent With Patient Total time spent is greater than 50% in coordination of care (as documented) at patient's floor/unit and/or counseling patient: Greater than 35 minutes <Arsenio Amezquita - Last Filed: 05/10/18 07:42> Date of Encounter: 05/10/18 Internal Medicine - H&P: HPI History of present illness: Ms. Cee is a 52 year old female All Systems PM: A 10-system review of systems was performed and is negative for pertinent findings except as documented above in the HPI. - Constitutional Vitals: Temp Pulse Resp BP Pulse Ox 98.3 F 99 15 109/67 97 05/10/18 07:34 05/10/18 07:34 05/10/18 07:34 05/10/18 07:34 05/10/18 07:34 Internal Med - H&P Results - Labs CBC & Chem 7: 05/10/18 02:24 05/10/18 02:24 Labs: Short CBC 05/10/18 Range/Units 02:24 WBC 5.8 (4.3-11.1) K/mcL Hgb 12.8 D (11.5-15.4) g/dL Hct 36.8 (35.3-44.9) % Plt Count 303 (140-400) K/mcL Neutrophils # 3.8 (1.6-8.9) K/mcL BMP 05/10/18 02:24 Sodium 139 Potassium 3.1 L Chloride 114 H Carbon Dioxide 13 L BUN 33 H Creatinine 1.75 H Glucose 84 Calcium 8.2 L Cardiac Enzymes 05/09/18 05/10/18 Range/Units 20:16 02:24 Troponin I 0.07 H* 0.06 H* (< 0.04) ng/mL Liver Function 05/10/18 Range/Units 02:24 Total Bilirubin 0.4 (0.3-1.0) mg/dL AST 14 (13-39) Units/L ALT 16 (7-52) Units/L Alkaline Phosphatase 42 (34-104) Units/L Albumin 3.5 (3.5-5.7) g/dL - Impressions ITS Impressions Retroperitoneum Ultrasound 05/09/18 19:00 IMPRESSION: No acute abnormality. No hydronephrosis. Mild increased renal cortical echogenicity consistent with medical renal disease. D/ / Baldomero Espinoza MD / Baldomero Espinoza MD Interpreting Provider: Baldomero Espinoza MD - Assessment and plan (1) Suicidal ideation Current Visit: Yes Status: Acute (2) Elevated troponin Current Visit: Yes Status: Acute (3) MICHELE (acute kidney injury) Current Visit: Yes Status: Acute (4) Encephalopathy acute Current Visit: Yes Status: Acute (5) History of CVA (cerebrovascular accident) Current Visit: Yes Status: Chronic (6) HLD (hyperlipidemia) Current Visit: Yes Status: Chronic Qualifiers: Hyperlipidemia type: pure hypercholesterolemia Qualified Code(s): E78.00 - Pure hypercholesterolemia, unspecified; E78.0 - Pure hypercholesterolemia (7) HTN (hypertension) Current Visit: Yes Status: Chronic Qualifiers: Hypertension type: essential hypertension Qualified Code(s): I10 - Essential (primary) hypertension (8) History of seizures Current Visit: Yes Status: Chronic (9) DVT prophylaxis Current Visit: Yes Status: Acute (10) Thyroid disease Current Visit: Yes Status: Chronic (11) Hypokalemia Current Visit: Yes Status: Acute (12) Positive urine drug screen Current Visit: Yes Status: Acute - Time Spent With Patient Total time spent is greater than 50% in coordination of care (as documented) at patient's floor/unit and/or counseling patient: - Attending Attestation See my event note of same day for details
--- NOTE | 2018-05-09 18:39 | Electrocardiograph Report ---
[facility] Test Date: 2018-05-09 Pat Name: Radha Cee Department: [id number] Room: 3A11 Gender: F Supervisor Sound Technician: : 1965 Requested By: Benjamin Baires Order Number: [id number] Reading MD: Marshal Ram Measurements Intervals [place] Rate: 74 P: 50 OK: 190 QRS: 46 QRSD: 90 T: 57 QT: 424 QTc: 471 Interpretive Statements Sinus rhythm Electronically Signed On 05-09-2018 18:37:57 EDT by Marshal Ram
--- NOTE | 2018-05-09 18:50 | Event Note ---
Date of Encounter: 05/09/18 Time of Encounter: 18:50 I have independently seen and examined this patient in the ER on 05/09/2018 with her son, who states he is her POA. She lives alone and has a PMH of ruptured intracranial aneurysms, hemorrhagic CVA, clippings, Seizure disorder, Opiate dependence (he thinks she just started using suboxone), HTN, HLD, and Hypothyroidism. Her son typically puts her medications for each week. He last spoke to her 5p.m yesterday and when he saw her this mrn at 11 a.m, she was confused and altered at baseline, she has some neurologic deficits from her CVA and is also blind in the R eye. She has R hemiparesis and some memory impairment but he felt she was not even at her baseline at time of encounter. On exam, she is sleeping, responds to sternal rub, disoriented to time, place and person, clinically dry, pupils are 3mm and reactive. Chest is clear, other systemic exam unremarkable. Labs and Imaging remarkable for MICHELE, hypokalemia, Elevated troponin, hemoconcentration with Hb of 16, TSH and Lipase WNL, Urine with no evidence of UTI, Urine toxicology with THC, Benzo, amphetamines. Head CT with chronic changes from prior CVA and encephalomalacia, CXR with no acute processes Assessment: acute encephalopathy, acute kidney injury, possible drug overdose, possible polysubstance abuse, elevated troponin Plan: Is as documented in [facility] history and physical which reflects our plan of care. She has been pink-slipped by the ER for possible suicidal attempt and will need psych clearance prior to discharge, fall precautions , aspiration precautions, seizure precautions, she is high risk fo delirium, and resp failure from aspiration, keep NPO, she is full code Per son at the bedside, patient is full code, she is still currently protecting her airway.
[2018-05-09] MEDS: 0.9 % Sodium Chloride 1,000 ML IVC SCH (19:18)
[2018-05-09] MEDS: Pantoprazole 40 MG VIAL IVP SCH (19:18)
[2018-05-10] MEDS: *HR* Metoprolol 5 MG/5 ML VIAL IVP SCH ×2 (00:15→07:47)
[2018-05-10 02:47] LABS: Basophils # 0.1 K/mcL (0.0-0.2); Basophils % 1.4 %; Eosinophils # 0.2 K/mcL (0.0-0.6); Eosinophils % 3.6 %; Hematocrit 36.8 % (35.3-44.9); Immature Granulocytes % 0.3 % (0-4); Lymphocytes # 1.1 K/mcL (0.6-4.6); Lymphocytes % 19.4 %; Mean Corpuscular HGB Conc 34.8 g/dL (31.6-35.5); Mean Corpuscular Hemoglobin 32.3 pg (28.0-33.3); Mean Corpuscular Volume 92.9 fL (83.0-100.0); Mean Platelet Volume 9.9 fL (9.4-12.4); Monocytes # 0.6 K/mcL (0.0-1.3); Monocytes % 10.1 %; Neutrophils # 3.8 K/mcL (1.6-8.9); Platelet Count 303 K/mcL (140-400); Red Blood Count 3.96 M/mcL (3.82-4.97); Red Cell Distribution Width 13.4 % (11.5-14.5); Segmented Neutrophils % 65.2 %
[2018-05-10 02:48] LABS: Hemoglobin 12.8 g/dL (11.5-15.4)
[2018-05-10 02:55] LABS: Albumin 3.5 g/dL (3.5-5.7); Albumin/Globulin Ratio 1.4 (1.1-2.2); Bilirubin,Total 0.4 mg/dL (0.3-1.0); Calcium 8.2 mg/dL (8.6-10.3); Chol/HDL Ratio 2.8 (0-4.9); Globulin 2.5 g/dL (2.4-3.5); Phosphorous 3.5 mg/dL (2.7-4.5); Potassium 3.1 mEq/L (3.5-5.1)
--- NOTE | 2018-05-10 07:45 | Internal Med Progress Note ---
Hospitalist Progress Note - Encounter Date of Encounter: 05/10/18 Time of Encounter: 09:10 - Subjective Interval History: asleep, awakes to name, sitter at bedside, no family. She is oriented to place, does not answer what brought her into hospital. denies any cp, palpitations, sob , abd pain. states she is hungry and wants to go home. - Exam Vitals: Temp Pulse Resp BP Pulse Ox 98.3 F 99 15 109/67 97 05/10/18 07:34 05/10/18 07:34 05/10/18 07:34 05/10/18 07:34 05/10/18 07:34 Exam: General: awake, alert, appears stated age HEENT:EOM intact , pupils equal, round, moist mucus membranes Cardiovascular:regular rate and rhythm, normal S1 & S2, no rubs, murmurs or gallops. No JVD. r no lower extremity edema Lungs:Normal breath sounds, no wheezes, or crackles. Normal respiratory effort on room air Abdomen:Soft, non-tender, non-distended, + bowel sounds Neurological: AAOx3, CN grossly intact, no focal deficits Skin:Normal color, no rash, no pallor, no jaundice - Assessment and Plan (1) Suicidal ideation Current Visit: Yes Status: Acute Assessment and Plan: Acute on chronic suicidal ideation. P t. voiced that she no longer wanted to live prior to being sedated in ED d/t aggression and anxiety. Pts. son states that she has stated this previously. Son reports that his brother of an OD approx. two years and was found frozen to outside. He states his mother has not been able to accept his . Pt. had previous psychiatric hospitalization approximately 3 years ago according to son -Suicide precautions. sitter -Ativan 1 mg IVP Q6HR for agitation/withdrawal. Pt. was pink-slipped by ED @ approx. 13:30 d/t suicidal ideations. -Psychiatry consult ordered and discussed w/05/09 (2) Elevated troponin Current Visit: Yes Status: Acute Assessment and Plan: Acutely elevated troponin of 0.06 on admission, likely reactive to possible OD. -trend has remained stable 0.06-0.07 -Continuous cardiac telemetry. -check ekg today (3) MICHELE (acute kidney injury) Current Visit: Yes Status: Acute Assessment and Plan: MICHELE w/GFR of 22 and creatinine of 2.36 on admission, likely d/t current dehydration versus possible OD. Improving -UA no infection -Limited retroperitoneal US . no acute findings -Monitor I&O and daily weight. Parker catheter placed. -Pt. received two 1L boluses of 0.9 NS in ED to be followed by 100 mLs/HR. -avoid nephrotoxins. (4) Encephalopathy acute Current Visit: Yes Status: Acute Assessment and Plan: Acute encephalopathy d/t OD or withdrawal versus dehydration versus possible CVA. Pt. 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 AT this time there is no new focal deficits, reisdual R hemiparesis from prior stroke. Only new neuro defitic is mentation -OD etiology unclear regarding medications pt. took and intent. -CT of the head/brain shows no acute intracranial abnormality, embolization coils are again seen in the region of the basilar artery as well as an aneurysm clip within the left middle cranial fossa, and postsurgical changes of the left calvarium with encephalomalacia involving left frontal and temporal lobes. -IVPB Keppra 500 mg BID. 1 mg IVP Ativan Q6HR for agitation/withdrawal. - Aspiration precautions. -Seizure precautions. -Suicide precautions. -Falls/safety precautions and up with assist only. -Parker catheter. -neuro checks -Will convert necessary medications to IVP or IVPB until mentation improves. -Consider Neurology consult if pts. mentation does not improve or CVA is suspected. -Pt. is high risk for further morbidity and complications d/t current encephalopathy from unknown etiology (OD/withdrawal, dehydration, possible CVA) , current suicidal ideation requiring pt. to be pink-slipped and have sitter, hx of two active brain aneurysms, hx of seizures requiring IVPB Keppra, elevated troponin, MICHELE, hx, and risk factors. 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 Falls/safety precautions and up with assist only. PT/OT consults ordered. (6) HLD (hyperlipidemia) Current Visit: Yes Status: Chronic Assessment and Plan: Hx of chronic HLD. Lipid panel at goal -Hold pts. PO Pravastatin until pts. mentation improves and pt. passes dysphagia screen. (7) HTN (hypertension) Current Visit: Yes Status: Chronic Assessment and Plan: Hx of chronic HTN. Hold pts. PO home med BB as she is low normotensive to normotensive at this time. Add hydralazine 10 mg IVP PRN w/parameters. Monitor pt. and VS. (8) History of seizures Current Visit: Yes Status: Chronic Assessment and Plan: Hx of seizures. Hold pts. current PO Keppra and administer IVPB Keppra at same dosing @ 500 mg BID. Monitor pt. for seizure activity d/t possible withdrawal. Padding to bedrails. Seizure precautions. (9) DVT prophylaxis Current Visit: Yes Status: Acute Assessment and Plan: Bilateral SCDs on LEs for DVT prophylaxis d/t hx of two active brain aneurysms, two coiled brain aneurysms, and previous brain aneurysm that burst. (10) Thyroid disease Current Visit: Yes Status: Chronic Assessment and Plan: Hx of chronic thyroid disease. TSH 0.865 on admission. Will continue pts. PO Synthroid when pt. is no longer altered and passes dysphagia screen. (11) Hypokalemia Current Visit: Yes Status: Acute Assessment and Plan: Acute hypokalemia w/potassium of 3.0 on admission. 20 mEq IVPB overnight -Continuous cardiac telemetry. -continued IV repletion today check mag level and follow up k level (12) Positive urine drug screen Current Visit: Yes Status: Acute Assessment and Plan: Acutely positive urine drug screen for amphetamines, benzodiazepines, and marijuana. Pts. son unsure if pt. took F/Sa/[place] medications or if someone took the medications out of the home. Son reports his cousins frequent the pts. home w/drugs. Unclear etiology of pts. intent if pt. has overdosed. -IVP Ativan 1 mg Q6HR for withdrawal/agitation. -Will hold pts. pain medications for now. DVT Prophylaxis: scds - Time Spent with Patient Total time spent is greater than 50% in coordination of care (as documented) at patient's floor/unit and/or counseling patient: 25 - 35 minutes Plan of Care Discussed with: patient Internal Medicine: Result - Labs CBC & Chem 7: 05/10/18 02:24 05/10/18 02:24 Labs: Short CBC 05/10/18 Range/Units 02:24 WBC 5.8 (4.3-11.1) K/mcL Hgb 12.8 D (11.5-15.4) g/dL Hct 36.8 (35.3-44.9) % Plt Count 303 (140-400) K/mcL Neutrophils # 3.8 (1.6-8.9) K/mcL BMP 05/10/18 02:24 Sodium 139 Potassium 3.1 L Chloride 114 H Carbon Dioxide 13 L BUN 33 H Creatinine 1.75 H Glucose 84 Calcium 8.2 L Cardiac Enzymes 05/09/18 05/10/18 Range/Units 20:16 02:24 Troponin I 0.07 H* 0.06 H* (< 0.04) ng/mL Liver Function 05/10/18 Range/Units 02:24 Total Bilirubin 0.4 (0.3-1.0) mg/dL AST 14 (13-39) Units/L ALT 16 (7-52) Units/L Alkaline Phosphatase 42 (34-104) Units/L Albumin 3.5 (3.5-5.7) g/dL - ABG Interpretation ABG results: PT/INR, D-dimer PT 11.6 Seconds (9.4-12.1) 05/09/18 13:25 - Impressions Impressions Retroperitoneum Ultrasound 05/09/18 19:00 IMPRESSION: No acute abnormality. No hydronephrosis. Mild increased renal cortical echogenicity consistent with medical renal disease. D/ / Baldomero Espinoza MD / Baldomero Espinoza MD Interpreting Provider: Baldomero Espinoza MD Consult Discharge Plan - Plan Referrals: [facility] – [place],Markell Macias MD [Primary Care Provider] - (6) HLD (hyperlipidemia) Qualifiers: Hyperlipidemia type: pure hypercholesterolemia Qualified Code(s): E78.00 - Pure hypercholesterolemia, unspecified; E78.0 - Pure hypercholesterolemia (7) HTN (hypertension) Qualifiers: Hypertension type: essential hypertension Qualified Code(s): I10 - Essential (primary) hypertension
[2018-05-10] MEDS: 0.9 % Sodium Chloride 1,000 ML IVC SCH ×2 (07:47→21:15)
[2018-05-10] MEDS: Pantoprazole 40 MG VIAL IVP SCH (07:47)
[2018-05-10] MEDS: Nicotine 14 MG PATCH.TD24 TD SCH (08:23)
[2018-05-10 08:52] LABS: Estimated Average Glucose 108 mg/dl; Hemoglobin A1C 5.4 %
--- NOTE | 2018-05-10 11:59 | Consult Note ---
Date of Encounter: 05/10/18 Time of Encounter: 11:54 Assessment & Recommendation (1) Altered mental status Current visit: Yes Status: Acute Assessment & Recommendation: Will continue to follow along. Client unable to provide any reliable information today. Son at bedside. He denies thinking this was a suicide attempt but would not rule that at out at this time given her history and circumstances surrounding her presentation. Would continue sitter for now, especially since client is still confused. Would recommend pink slipping her if she tries to leave AMA as I don't think a suicide attempt can be ruled out. Hopefully, she can provide more information once her cognition improves. Can use low dose Haldol for agitation in meantime. Qualifiers: Altered mental status type: unspecified Qualified Code(s): R41.82 - Altered mental status, unspecified History of Present Illness Requesting Physician: Arsenio Amezquita MD Reason for consult: overdose History of present illness: Ms. Cee is a 52 year old female who was admitted with mental status changes. Unclear etiology. Concern for possible overdose. Client lives alone but has an extensive medical history. Son comes weekly to fill her pill boxes. When he came to see her yesterday three days worth of meds were gone and client was confused. Son states client has never overtaken meds before but that she does have confusion and memory issues at baseline. Client is alert but confused today. She does not seem to remember anything from yesterday. She denies any recent thoughts of self harm. However, she is treated for depression, she has a prior mental health hospitalization, and records indicate she has talked about ending her life before. Son denies thinking this was a suicide attempt but would not rule it out at this point. CC: Arsenio Amezquita MD Past Med Surg Social Fam HX - Past Medical History Medical history: arthritis, CVA, GERD, hyperlipidemia, hypertension, thyroid disease, other - Past Psychiatric History Psychiatric history: Reports: depression, previous psychiatric hospitalization Family psychiatric history: Unknown Family History of Suicide: Unknown - Past Surgical History Surgical History: hysterectomy (Total), other - Social History Smoking Status: Current every day smoker Smokeless Tobacco Status: No Alcohol use: none Drug use: none - Family History Father History Unknown: Yes Adopted: No ([employer]) Mother History Unknown: Yes Adopted: No ([employer]) Brother History Unknown: Yes Adopted: No ([employer]) Sister History Unknown: Yes Adopted: No ([employer]) Son Race: Family Member Ethnicity: Non- Living Status: Cause of : OD Hx Family Psychosocial Disorders: Yes (Drug abuse) Medications & Allergies DULoxetine [Cymbalta] 90 mg PO DAILY 05/09/18 [History] Donepezil [Aricept] 5 mg PO HS 05/09/18 [History] Famotidine [Pepcid] 20 mg PO BID 05/09/18 [History] Folic Acid 1 mg PO DAILY 05/09/18 [History] Gabapentin [Neurontin] 1,200 mg PO TID 05/09/18 [History] LevETIRAcetam [Keppra] 500 mg PO Q12H 05/09/18 [History] Levothyroxine [Synthroid] 100 mcg PO Q48H 05/09/18 [History] Levothyroxine [Synthroid] 112 mcg PO Q48H 05/09/18 [History] Lisinopril [Zestril] 5 mg PO DAILY 05/09/18 [History] Melatonin [Melatin] 3 mg PO HS 05/09/18 [History] Metoprolol [Lopressor] 12.5 mg PO BID 05/09/18 [History] Pravastatin Sodium 10 mg PO QPM 05/09/18 [History] Topiramate [Topamax] 25 mg PO BID 05/09/18 [History] diazePAM [Valium] 5 mg PO TID PRN 05/09/18 [History] traZODone [TraZODone] 50 mg PO HS PRN 05/09/18 [History] 3 Allergy/AdvReac Type Severity Reaction Status Date / Time Sulfa (Sulfonamide AdvReac Hives Verified 05/09/18 13:14 Antibiotics) Review of Systems Constitutional: Reports: weakness Eyes: Denies: eye pain, vision change Ears, Nose, Throat: Denies: ear pain, throat pain, dental pain, hearing loss, congestion Cardiovascular: Denies: chest pain, palpitations, dyspnea on exertion Respiratory: Denies: cough, dyspnea, wheezes Gastrointestinal: Denies: abdominal pain, nausea, vomiting, diarrhea, constipation Genitourinary female: Denies: urgency, dysuria, frequency, abnormal menses, dyspareunia Musculoskeletal: Reports: other Integumentary: Denies: rash, lesions, pruritus Neurological: Reports: confusion, memory loss Endocrine: Denies: fatigue, heat or cold intolerance Hematologic/Lymphatic: Denies: easy bruising, lymphadenopathy Allergic/Immunologic: Denies: urticaria, itchy eyes Psychiatry Exam - Constitutional Vitals: Temp Pulse Resp BP Pulse Ox 98.3 F 99 15 109/67 97 05/10/18 07:34 05/10/18 07:34 05/10/18 07:34 05/10/18 07:34 05/10/18 07:52 General appearance: disheveled - Musculoskeletal Gait: other Station: relaxed Strength & Tone: normal for patient - Psychiatric Patient Orientation: Yes Person Level of alertness: Alert Behavior: agitated Psychomotor activity: Normal Eye Contact: Minimal Contact Mood Description: Depressed Affect description: congruent with mood Speech Volume: Normal Speech pattern: slurred Language & Vocabulary: consistent with education Thought Process: Linear Thought Content: No Suicidal ideation, No Homicidal ideation, No Overt delusions Perceptual Disturbances: No Auditory hallucinations, No Visual hallucinations Attention Span Ability: Capable of Focused Attention Memory Description: Immediate Intact, Recent Impaired, Remote Intact Patient Reliability: Questionable Historian Fund of knowledge: Yes abstraction ability Intelligence Estimate: Average Judgment: Limited Insight: Partial Results - Labs Labs: Laboratory Last Values WBC 5.8 K/mcL (4.3-11.1) 05/10/18 02:24 RBC 3.96 M/mcL (3.82-4.97) 05/10/18 02:24 Hgb 12.8 g/dL (11.5-15.4) D 05/10/18 02:24 Hct 36.8 % (35.3-44.9) 05/10/18 02:24 MCV 92.9 fL (83.0-100.0) 05/10/18 02:24 MCH 32.3 pg (28.0-33.3) 05/10/18 02:24 MCHC 34.8 g/dL (31.6-35.5) 05/10/18 02:24 RDW 13.4 % (11.5-14.5) 05/10/18 02:24 Plt Count 303 K/mcL (140-400) 05/10/18 02:24 MPV 9.9 fL (9.4-12.4) 05/10/18 02:24 Immature Gran % 0.3 % (0-4) 05/10/18 02:24 Seg Neutrophils % 65.2 % 05/10/18 02:24 Lymphocytes % 19.4 % 05/10/18 02:24 Monocytes % 10.1 % 05/10/18 02:24 Eosinophils % 3.6 % 05/10/18 02:24 Basophils % 1.4 % 05/10/18 02:24 Neutrophils # 3.8 K/mcL (1.6-8.9) 05/10/18 02:24 Lymphocytes # 1.1 K/mcL (0.6-4.6) 05/10/18 02:24 Monocytes # 0.6 K/mcL (0.0-1.3) 05/10/18 02:24 Eosinophils # 0.2 K/mcL (0.0-0.6) 05/10/18 02:24 Basophils # 0.1 K/mcL (0.0-0.2) 05/10/18 02:24 PT 11.6 Seconds (9.4-12.1) 05/09/18 13:25 INR 1.0 05/09/18 13:25 APTT 29.4 Seconds (26.0-36.0) 05/09/18 13:25 Sodium 139 mEq/L (136-145) 05/10/18 02:24 Potassium 3.1 mEq/L (3.5-5.1) L 05/10/18 02:24 Chloride 114 mEq/L (98-107) H 05/10/18 02:24 Carbon Dioxide 13 mEq/L (23-29) L 05/10/18 02:24 BUN 33 mg/dL (6-20) H 05/10/18 02:24 Creatinine 1.75 mg/dL (0.60-1.20) H 05/10/18 02:24 Est GFR ( Amer) 37 (> 60) L 05/10/18 02:24 Est GFR (Non-Af Amer) 31 (> 60) L 05/10/18 02:24 BUN/Creatinine Ratio 19 (6-26) 05/10/18 02:24 Glucose 84 mg/dL (70-105) 05/10/18 02:24 POC Glucose 93 mg/dL (70-99) 05/10/18 11:39 Est Mean Plasma Glucose 108 mg/dl 05/10/18 02:24 Hemoglobin A1c 5.4 % (-5.6) 05/10/18 02:24 Calculated Osmolality 294 (280-300) 05/10/18 02:24 Calcium 8.2 mg/dL (8.6-10.3) L 05/10/18 02:24 Phosphorus 3.5 mg/dL (2.7-4.5) 05/10/18 02:24 Magnesium 1.9 mg/dL (1.6-2.6) 05/09/18 14:24 Total Bilirubin 0.4 mg/dL (0.3-1.0) 05/10/18 02:24 Direct Bilirubin 0.2 mg/dL (0.0-0.2) 05/09/18 14:24 Indirect Bilirubin 0.2 mg/dL (0.0-1.2) 05/09/18 14:24 AST 14 Units/L (13-39) 05/10/18 02:24 ALT 16 Units/L (7-52) 05/10/18 02:24 Alkaline Phosphatase 42 Units/L (34-104) 05/10/18 02:24 Ammonia 34 mcmol/L (16-53) 05/09/18 15:33 Troponin I 0.06 ng/mL (< 0.04) H* 05/10/18 02:24 Serum Total Protein 6.0 g/dL (6.4-8.9) L 05/10/18 02:24 Albumin 3.5 g/dL (3.5-5.7) 05/10/18 02:24 Globulin 2.5 g/dL (2.4-3.5) 05/10/18 02:24 Albumin/Globulin Ratio 1.4 (1.1-2.2) 05/10/18 02:24 Triglycerides 66 mg/dL (< 150) 05/10/18 02:24 Cholesterol 116 mg/dL (< 200) 05/10/18 02:24 LDL Cholesterol, Calc 61 mg/dL (0-99) 05/10/18 02:24 VLDL Cholesterol, Calc 13 mg/dL (< 31) 05/10/18 02:24 HDL Cholesterol 42 mg/dL (40-59) 05/10/18 02:24 Cholesterol/HDL Ratio 2.8 (0-4.9) 05/10/18 02:24 TSH 0.865 mcIU/mL (0.340-5.600) 05/09/18 14:24 Urine Color Yellow (Yellow) 05/09/18 15:10 Urine Clarity Cloudy (Clear) A 05/09/18 15:10 Urine pH 5.0 pH Units (5.0-8.0) 05/09/18 15:10 Ur Specific Mobile 1.014 (1.010-1.025) 05/09/18 15:10 Urine Protein Negative mg/dL (Neg-Trace) 05/09/18 15:10 Urine Glucose (UA) Normal mg/dL (Normal) 05/09/18 15:10 Urine Ketones Negative mg/dL (Negative) 05/09/18 15:10 Urine Blood Negative (Negative) 05/09/18 15:10 Urine Nitrite Negative (Negative) 05/09/18 15:10 Urine Bilirubin Negative (Negative) 05/09/18 15:10 Urine Urobilinogen Normal mg/dL (Normal) 05/09/18 15:10 Ur Leukocyte Esterase Negative (Negative) 05/09/18 15:10 Urine Microscopic RBC 5-15 per hpf (0-3) H 05/09/18 15:10 Urine Microscopic WBC 0-3 per hpf (0-3) 05/09/18 15:10 Ur Squamous Epith Cells Many per lpf (None-Few) H 05/09/18 15:10 Urine Bacteria Many per hpf (None-Few) H 05/09/18 15:10 Hyaline Casts None Seen per lpf (None-Few) 05/09/18 15:10 Ur Culture Indicated? NO (NO) 05/09/18 15:10 Salicylates < 2.5 mg/dL (15.0-30.0) L 05/09/18 14:24 Urine Opiates Screen Negative ng/mL (Yywiub=460) 05/09/18 15:10 Acetaminophen < 10 mcg/mL (10-20) L 05/09/18 14:24 Ur Barbiturates Screen Negative ng/mL (Kwsheu=678) 05/09/18 15:10 Ur Phencyclidine Scrn Negative ng/mL (Cutoff=25) 05/09/18 15:10 Ur Amphetamines Screen Positive ng/mL (Sjkgab=1590) H 05/09/18 15:10 U Benzodiazepines Scrn Positive ng/mL (Hwyowh=764) H 05/09/18 15:10 Urine Cocaine Screen Negative ng/mL (Cutoff= 300) 05/09/18 15:10 U Marijuana (THC) Screen Positive ng/mL (Cutoff = 50) H 05/09/18 15:10 Ur Drug Screen Interp See Below 05/09/18 15:10 Ethyl Alcohol < 10 mg/dL (Less than 10) 05/09/18 14:24 - Impressions Impressions Retroperitoneum Ultrasound 05/09/18 19:00 IMPRESSION: No acute abnormality. No hydronephrosis. Mild increased renal cortical echogenicity consistent with medical renal disease. D/ / Baldomero Espinoza MD / Baldomero Espinoza MD Interpreting Provider: Baldomero Espinoza MD Consult Discharge Plan - Plan [place] [facility] [place]Markell Macias [place] [Primary Care Provider] -
[2018-05-10] MEDS ORDERED: Potassium Chloride Elixir 20 MEQ/15 ML UDC PO ONE (13:18)
[2018-05-11 01:50] LABS: Basophils # 0.1 K/mcL (0.0-0.2); Eosinophils # 0.2 K/mcL (0.0-0.6); Eosinophils % 4.9 %; Hematocrit 34.5 % (35.3-44.9); Hemoglobin 11.8 g/dL (11.5-15.4); Immature Granulocytes % 0.2 % (0-4); Lymphocytes # 1.3 K/mcL (0.6-4.6); Mean Corpuscular HGB Conc 34.2 g/dL (31.6-35.5); Mean Corpuscular Hemoglobin 31.7 pg (28.0-33.3); Mean Corpuscular Volume 92.7 fL (83.0-100.0); Mean Platelet Volume 9.8 fL (9.4-12.4); Monocytes # 0.6 K/mcL (0.0-1.3); Neutrophils # 2.7 K/mcL (1.6-8.9); Platelet Count 293 K/mcL (140-400); Red Blood Count 3.72 M/mcL (3.82-4.97); Red Cell Distribution Width 13.6 % (11.5-14.5); Segmented Neutrophils % 54.9 %
[2018-05-11 02:01] LABS: Alanine Aminotransferase 18 Units/L (7-52); Albumin 3.3 g/dL (3.5-5.7); Albumin/Globulin Ratio 1.3 (1.1-2.2); Alkaline Phosphatase 40 Units/L (34-104); Aspartate Amino Transferase 17 Units/L (13-39); BUN/Creatinine Ratio 19 (6-26); Bilirubin,Total 0.4 mg/dL (0.3-1.0); Blood Urea Nitrogen 17 mg/dL (6-20); Calcium 8.6 mg/dL (8.6-10.3); Carbon Dioxide 18 mEq/L (23-29); Chloride 116 mEq/L (98-107); Globulin 2.6 g/dL (2.4-3.5); Glucose 100 mg/dL (70-105); Osmolality,Calculated 288 (280-300); Potassium 3.4 mEq/L (3.5-5.1); Sodium 138 mEq/L (136-145); Total Protein 5.9 g/dL (6.4-8.9); eGFR For Non-African Americans > 60 (> 60)
[2018-05-11] MEDS: 0.9 % Sodium Chloride 1,000 ML IVC SCH ×3 (07:14→07:33)
[2018-05-11] MEDS: Nicotine 14 MG PATCH.TD24 TD SCH (07:30)
[2018-05-11] MEDS: Pantoprazole 40 MG VIAL IVP SCH (07:32)
--- NOTE | 2018-05-11 08:57 | Internal Med Progress Note ---
Hospitalist Progress Note - Encounter Date of Encounter: 05/11/18 Time of Encounter: 10:10 - Subjective Interval History: asleep, awakes to name. denies any pain, chest pain or palpitations. She has no concerns or complaints at this time. sitter at bedside. no family present - Exam Vitals: Temp Pulse Resp BP Pulse Ox 97.8 F 78 18 135/86 97 05/11/18 07:00 05/11/18 07:00 05/11/18 07:00 05/11/18 07:00 05/11/18 07:58 Exam: General: awake, alert, appears stated age HEENT:EOM intact , pupils equal, round, moist mucus membranes Cardiovascular:regular rate and rhythm, normal S1 & S2, no rubs, murmurs or gallops. Lungs:Normal breath sounds, no wheezes, or crackles. Normal respiratory effort on room air Abdomen:Soft, non-tender, non-distended, + bowel sounds, no HSM Neurological: AAOx3, CN grossly intact, no focal deficits Skin:Normal color, no rash, no pallor, no jaundice - Assessment and Plan (1) Suicidal ideation Current Visit: Yes Status: Acute Assessment and Plan: Acute on chronic suicidal ideation. P t. voiced that she no longer wanted to live prior to being sedated in ED d/t aggression and anxiety. Pts. son states that she has stated this previously. Son reports that his brother of an OD approx. two years and was found frozen to outside. He states his mother has not been able to accept his . Pt. had previous psychiatric hospitalization approximately 3 years ago according to son -Suicide precautions. sitter -Ativan 1 mg IVP Q6HR for agitation/withdrawal. Pt. was pink-slipped by ED @ approx. 13:30 d/t suicidal ideations. -Psychiatry following, pt has not yet actively participated in eval, will fu (2) Elevated troponin Current Visit: Yes Status: Acute Assessment and Plan: Acutely elevated troponin of 0.06 on admission, likely reactive to possible OD. -trend has remained stable 0.06-0.07 -Continuous cardiac telemetry. (3) MICHELE (acute kidney injury) Current Visit: Yes Status: Resolved Assessment and Plan: MICHELE w/GFR of 22 and creatinine of 2.36 on admission, likely d/t current dehydration versus possible OD. RESOLVED -UA no infection -Limited retroperitoneal US . no acute findings -Monitor I&O and daily weight. Parker catheter placed. -Pt. received two 1L boluses of 0.9 NS in ED to be followed by 100 mLs/HR. -avoid nephrotoxins -may dc ivf when cleared by swallow eval to eat (4) Encephalopathy acute Current Visit: Yes Status: Acute Assessment and Plan: Acute encephalopathy d/t OD or withdrawal versus dehydration versus possible CVA. Pt. 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 AT this time there is no new focal deficits, reisdual R hemiparesis from prior stroke. Only new neuro defitic is mentation -OD etiology unclear regarding medications pt. took and intent. -CT of the head/brain shows no acute intracranial abnormality, embolization coils are again seen in the region of the basilar artery as well as an aneurysm clip within the left middle cranial fossa, and postsurgical changes of the left calvarium with encephalomalacia involving left frontal and temporal lobes. -IVPB Keppra 500 mg BID. 1 mg IVP Ativan Q6HR for agitation/withdrawal. - Aspiration precautions. -Seizure precautions. -Suicide precautions. -Falls/safety precautions and up with assist only. -Parker catheter. -neuro checks -Will convert necessary medications to IVP or IVPB until mentation improves. -Consider Neurology consult if pts. mentation does not improve or CVA is suspected. -Pt. is high risk for further morbidity and complications d/t current encephalopathy from unknown etiology (OD/withdrawal, dehydration, possible CVA) , current suicidal ideation requiring pt. to be pink-slipped and have sitter, hx of two active brain aneurysms, hx of seizures requiring IVPB Keppra, elevated troponin, MICHELE, hx, and risk factors. 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 Falls/safety precautions and up with assist only. PT/OT consults ordered. (6) HLD (hyperlipidemia) Current Visit: Yes Status: Chronic Assessment and Plan: Hx of chronic HLD. Lipid panel at goal -Hold pts. PO Pravastatin until pts. mentation improves and pt. passes dysphagia screen. (7) HTN (hypertension) Current Visit: Yes Status: Chronic Assessment and Plan: Hx of chronic HTN. BP now slowly elevating above goal -05/11 resume home lopressor 12.5 mg BID, HR has been normal 70-90s, if bp cont to jannette green home med is lisinopril 5mg PO (MICHELE now resolved) (8) History of seizures Current Visit: Yes Status: Chronic Assessment and Plan: Hx of seizures. Hold pts. current PO Keppra and administer IVPB Keppra at same dosing @ 500 mg BID. Monitor pt. for seizure activity d/t possible withdrawal. Padding to bedrails. Seizure precautions. (9) DVT prophylaxis Current Visit: Yes Status: Acute Assessment and Plan: Bilateral SCDs on LEs for DVT prophylaxis d/t hx of two active brain aneurysms, two coiled brain aneurysms, and previous brain aneurysm that burst. (10) Thyroid disease Current Visit: Yes Status: Chronic Assessment and Plan: Hx of chronic thyroid disease. TSH 0.865 on admission. Will continue pts. PO Synthroid when pt. is no longer altered and passes dysphagia screen. (11) Hypokalemia Current Visit: Yes Status: Acute Assessment and Plan: Acute hypokalemia w/potassium of 3.0 on admission -Continuous cardiac telemetry. -has been receiving PO repletion now -mag near goal -cont to monitor (12) Positive urine drug screen Current Visit: Yes Status: Acute Assessment and Plan: Acutely positive urine drug screen for amphetamines, benzodiazepines, and marijuana. Pts. son unsure if pt. took F/Sa/[place] medications or if someone took the medications out of the home. Son reports his cousins frequent the pts. home w/drugs. Unclear etiology of pts. intent if pt. has overdosed. -IVP Ativan 1 mg Q6HR for withdrawal/agitation. -Will hold pts. pain medications for now. DVT Prophylaxis: scds - Time Spent with Patient Total time spent is greater than 50% in coordination of care (as documented) at patient's floor/unit and/or counseling patient: 25 - 35 minutes Plan of Care Discussed with: patient Internal Medicine: Result - Labs CBC & Chem 7: 05/11/18 01:11 05/11/18 01:11 Labs: Short CBC 05/11/18 Range/Units 01:11 WBC 4.9 (4.3-11.1) K/mcL Hgb 11.8 (11.5-15.4) g/dL Hct 34.5 L (35.3-44.9) % Plt Count 293 (140-400) K/mcL Neutrophils # 2.7 (1.6-8.9) K/mcL BMP 05/10/18 05/11/18 20:04 01:11 Sodium 138 Potassium 3.6 3.4 L Chloride 116 H Carbon Dioxide 18 L BUN 17 Creatinine 0.89 Glucose 100 Calcium 8.6 Liver Function 05/11/18 Range/Units 01:11 Total Bilirubin 0.4 (0.3-1.0) mg/dL AST 17 (13-39) Units/L ALT 18 (7-52) Units/L Alkaline Phosphatase 40 (34-104) Units/L Albumin 3.3 L (3.5-5.7) g/dL - ABG Interpretation ABG results: PT/INR, D-dimer PT 11.6 Seconds (9.4-12.1) 05/09/18 13:25 Consult Discharge Plan - Plan Referrals: Elsy,Markell Macias MD [Primary Care Provider] - (6) HLD (hyperlipidemia) Qualifiers: Hyperlipidemia type: pure hypercholesterolemia Qualified Code(s): E78.00 - Pure hypercholesterolemia, unspecified; E78.0 - Pure hypercholesterolemia (7) HTN (hypertension) Qualifiers: Hypertension type: essential hypertension Qualified Code(s): I10 - Essential (primary) hypertension
[2018-05-11] MEDS ORDERED: Magnesium Oxide 400 MG TABLET PO ONE (09:03)
--- NOTE | 2018-05-11 13:30 | Consult Note ---
Date of Encounter: 05/11/18 Time of Encounter: 13:14 Assessment & Recommendation (1) Altered mental status Current visit: Yes Status: Acute Assessment & Recommendation: Client still confused and unable to give an account of what happened prior to her admission. Admits to drug use. Also looks very depressed. Tearful. Denies SI but will not answer whether she was experiencing SI prior to admission. It is still unclear whether medication overdose was intentional. When asked about it she gives answers that do not make sense. Will continue to follow along. Qualifiers: Altered mental status type: unspecified Qualified Code(s): R41.82 - Altered mental status, unspecified History of Present Illness Requesting Physician: Shonda Segovia Reason for consult: follow up History of present illness: Ms. Cee is a 52 year old female with altered mental status and possible intentional overdose. Client seen again today. She was more cooperative/ conversant but she was still very confused. Unable to give a clear history of what happened. When asked if she took medications on purpose she will not answer question directly. Tearful. Gives a convoluted account of day leading up to her admission. She talks about "Ronny" and "Shae" being in her home and being angry at them over using her phone. Not making much sense. Admits to drug use and claims she gets methamphetamines from someone in her building. Presentation is likely partly related to drugs she is abusing. However, she does not present as safe for discharge due to her confusion and possible suicidality. She will deny SI when asked directly but she remains very vague as to whether her medication overdose was intentional. She looks depressed. Family not at bedside today. CC: Shonda Segovia Past Med Surg Social Fam HX - Past Medical History Medical history: arthritis, CVA, GERD, hyperlipidemia, hypertension, thyroid disease, other - Past Psychiatric History Psychiatric history: Reports: depression, previous psychiatric hospitalization Family psychiatric history: Unknown Family History of Suicide: Unknown - Past Surgical History Surgical History: hysterectomy (Total), other - Social History Smoking Status: Current every day smoker Smokeless Tobacco Status: No Alcohol use: none Drug use: none - Family History Father History Unknown: Yes Adopted: No ([employer] [facility]) Mother History Unknown: Yes Adopted: No ([employer]) Brother History Unknown: Yes Adopted: No ([employer]) Sister History Unknown: Yes Adopted: No ([employer]) Son Race: Family Member Ethnicity: Non- Living Status: Cause of : OD Hx Family Psychosocial Disorders: Yes (Drug abuse) Medications & Allergies DULoxetine [Cymbalta] 90 mg PO DAILY 05/09/18 [History] Donepezil [Aricept] 5 mg PO HS 05/09/18 [History] Famotidine [Pepcid] 20 mg PO BID 05/09/18 [History] Folic Acid 1 mg PO DAILY 05/09/18 [History] Gabapentin [Neurontin] 1,200 mg PO TID 05/09/18 [History] LevETIRAcetam [Keppra] 500 mg PO Q12H 05/09/18 [History] Levothyroxine [Synthroid] 100 mcg PO Q48H 05/09/18 [History] Levothyroxine [Synthroid] 112 mcg PO Q48H 05/09/18 [History] Lisinopril [Zestril] 5 mg PO DAILY 05/09/18 [History] Melatonin [Melatin] 3 mg PO HS 05/09/18 [History] Metoprolol [Lopressor] 12.5 mg PO BID 05/09/18 [History] Pravastatin Sodium 10 mg PO QPM 05/09/18 [History] Topiramate [Topamax] 25 mg PO BID 05/09/18 [History] diazePAM [Valium] 5 mg PO TID PRN 05/09/18 [History] traZODone [TraZODone] 50 mg PO HS PRN 05/09/18 [History] 3 Allergy/AdvReac Type Severity Reaction Status Date / Time Sulfa (Sulfonamide AdvReac Hives Verified 05/09/18 13:14 Antibiotics) Review of Systems Constitutional: Denies: fever, chills, weakness, weight change Eyes: Denies: eye pain, vision change Ears, Nose, Throat: Denies: ear pain, throat pain, dental pain, hearing loss, congestion Cardiovascular: Denies: chest pain, palpitations, dyspnea on exertion Respiratory: Denies: cough, dyspnea, wheezes Gastrointestinal: Denies: abdominal pain, nausea, vomiting, diarrhea, constipation Genitourinary female: Denies: urgency, dysuria, frequency, abnormal menses, dyspareunia Musculoskeletal: Denies: joint swelling, joint pain Integumentary: Denies: rash, lesions, pruritus Neurological: Reports: confusion, memory loss Endocrine: Denies: fatigue, heat or cold intolerance Hematologic/Lymphatic: Denies: easy bruising, lymphadenopathy Allergic/Immunologic: Denies: urticaria, itchy eyes Psychiatry Exam - Constitutional Vitals: Temp Pulse Resp BP Pulse Ox 98.4 F 79 16 157/96 98 05/11/18 11:06 05/11/18 11:06 05/11/18 11:06 05/11/18 11:06 05/11/18 11:06 General appearance: age & developmentally appropriate - Musculoskeletal Gait: other Station: other Strength & Tone: normal for patient - Psychiatric Patient Orientation: Yes Person, Yes Place Level of alertness: Alert Behavior: anxious, tearful Psychomotor activity: Normal Eye Contact: Minimal Contact Mood Description: Depressed Affect description: congruent with mood Speech Volume: Normal Speech pattern: slurred Language & Vocabulary: consistent with education Thought Process: Tangential Thought Content: No Suicidal ideation, No Homicidal ideation, No Overt delusions Perceptual Disturbances: No Auditory hallucinations, No Visual hallucinations Attention Span Ability: Unable to Focus Memory Description: Immediate Intact, Recent Impaired, Remote Intact Patient Reliability: Not Reliable Historian Fund of knowledge: Yes abstraction ability Intelligence Estimate: Average Judgment: Limited Insight: Partial Results - Labs Labs: Laboratory Last Values WBC 4.9 K/mcL (4.3-11.1) 05/11/18 01:11 RBC 3.72 M/mcL (3.82-4.97) L 05/11/18 01:11 Hgb 11.8 g/dL (11.5-15.4) 05/11/18 01:11 Hct 34.5 % (35.3-44.9) L 05/11/18 01:11 MCV 92.7 fL (83.0-100.0) 05/11/18 01:11 MCH 31.7 pg (28.0-33.3) 05/11/18 01:11 MCHC 34.2 g/dL (31.6-35.5) 05/11/18 01:11 RDW 13.6 % (11.5-14.5) 05/11/18 01:11 Plt Count 293 K/mcL (140-400) 05/11/18 01:11 MPV 9.8 fL (9.4-12.4) 05/11/18 01:11 Immature Gran % 0.2 % (0-4) 05/11/18 01:11 Seg Neutrophils % 54.9 % 05/11/18 01:11 Lymphocytes % 26.0 % 05/11/18 01:11 Monocytes % 13.0 % 05/11/18 01:11 Eosinophils % 4.9 % 05/11/18 01:11 Basophils % 1.0 % 05/11/18 01:11 Neutrophils # 2.7 K/mcL (1.6-8.9) 05/11/18 01:11 Lymphocytes # 1.3 K/mcL (0.6-4.6) 05/11/18 01:11 Monocytes # 0.6 K/mcL (0.0-1.3) 05/11/18 01:11 Eosinophils # 0.2 K/mcL (0.0-0.6) 05/11/18 01:11 Basophils # 0.1 K/mcL (0.0-0.2) 05/11/18 01:11 PT 11.6 Seconds (9.4-12.1) 05/09/18 13:25 INR 1.0 05/09/18 13:25 APTT 29.4 Seconds (26.0-36.0) 05/09/18 13:25 Sodium 138 mEq/L (136-145) 05/11/18 01:11 Potassium 3.4 mEq/L (3.5-5.1) L 05/11/18 01:11 Chloride 116 mEq/L (98-107) H 05/11/18 01:11 Carbon Dioxide 18 mEq/L (23-29) L 05/11/18 01:11 BUN 17 mg/dL (6-20) 05/11/18 01:11 Creatinine 0.89 mg/dL (0.60-1.20) 05/11/18 01:11 Est GFR ( Amer) > 60 (> 60) 05/11/18 01:11 Est GFR (Non-Af Amer) > 60 (> 60) 05/11/18 01:11 BUN/Creatinine Ratio 19 (6-26) 05/11/18 01:11 Glucose 100 mg/dL (70-105) 05/11/18 01:11 POC Glucose 97 mg/dL (70-99) 05/11/18 09:15 Est Mean Plasma Glucose 108 mg/dl 05/10/18 02:24 Hemoglobin A1c 5.4 % (-5.6) 05/10/18 02:24 Calculated Osmolality 288 (280-300) 05/11/18 01:11 Calcium 8.6 mg/dL (8.6-10.3) 05/11/18 01:11 Phosphorus 3.5 mg/dL (2.7-4.5) 05/10/18 02:24 Magnesium 1.8 mg/dL (1.6-2.6) 05/11/18 01:11 Total Bilirubin 0.4 mg/dL (0.3-1.0) 05/11/18 01:11 Direct Bilirubin 0.2 mg/dL (0.0-0.2) 05/09/18 14:24 Indirect Bilirubin 0.2 mg/dL (0.0-1.2) 05/09/18 14:24 AST 17 Units/L (13-39) 05/11/18 01:11 ALT 18 Units/L (7-52) 05/11/18 01:11 Alkaline Phosphatase 40 Units/L (34-104) 05/11/18 01:11 Ammonia 34 mcmol/L (16-53) 05/09/18 15:33 Troponin I 0.06 ng/mL (< 0.04) H* 05/10/18 02:24 Serum Total Protein 5.9 g/dL (6.4-8.9) L 05/11/18 01:11 Albumin 3.3 g/dL (3.5-5.7) L 05/11/18 01:11 Globulin 2.6 g/dL (2.4-3.5) 05/11/18 01:11 Albumin/Globulin Ratio 1.3 (1.1-2.2) 05/11/18 01:11 Triglycerides 66 mg/dL (< 150) 05/10/18 02:24 Cholesterol 116 mg/dL (< 200) 05/10/18 02:24 LDL Cholesterol, Calc 61 mg/dL (0-99) 05/10/18 02:24 VLDL Cholesterol, Calc 13 mg/dL (< 31) 05/10/18 02:24 HDL Cholesterol 42 mg/dL (40-59) 05/10/18 02:24 Cholesterol/HDL Ratio 2.8 (0-4.9) 05/10/18 02:24 TSH 0.865 mcIU/mL (0.340-5.600) 05/09/18 14:24 Urine Color Yellow (Yellow) 05/09/18 15:10 Urine Clarity Cloudy (Clear) A 05/09/18 15:10 Urine pH 5.0 pH Units (5.0-8.0) 05/09/18 15:10 Ur Specific Byron 1.014 (1.010-1.025) 05/09/18 15:10 Urine Protein Negative mg/dL (Neg-Trace) 05/09/18 15:10 Urine Glucose (UA) Normal mg/dL (Normal) 05/09/18 15:10 Urine Ketones Negative mg/dL (Negative) 05/09/18 15:10 Urine Blood Negative (Negative) 05/09/18 15:10 Urine Nitrite Negative (Negative) 05/09/18 15:10 Urine Bilirubin Negative (Negative) 05/09/18 15:10 Urine Urobilinogen Normal mg/dL (Normal) 05/09/18 15:10 Ur Leukocyte Esterase Negative (Negative) 05/09/18 15:10 Urine Microscopic RBC 5-15 per hpf (0-3) H 05/09/18 15:10 Urine Microscopic WBC 0-3 per hpf (0-3) 05/09/18 15:10 Ur Squamous Epith Cells Many per lpf (None-Few) H 05/09/18 15:10 Urine Bacteria Many per hpf (None-Few) H 05/09/18 15:10 Hyaline Casts None Seen per lpf (None-Few) 05/09/18 15:10 Ur Culture Indicated? NO (NO) 05/09/18 15:10 Salicylates < 2.5 mg/dL (15.0-30.0) L 05/09/18 14:24 Urine Opiates Screen Negative ng/mL (Iqnkfg=530) 05/09/18 15:10 Acetaminophen < 10 mcg/mL (10-20) L 05/09/18 14:24 Ur Barbiturates Screen Negative ng/mL (Aqkdog=850) 05/09/18 15:10 Ur Phencyclidine Scrn Negative ng/mL (Cutoff=25) 05/09/18 15:10 Ur Amphetamines Screen Positive ng/mL (Rawlrn=0801) H 05/09/18 15:10 U Benzodiazepines Scrn Positive ng/mL (Zucqjt=580) H 05/09/18 15:10 Urine Cocaine Screen Negative ng/mL (Cutoff= 300) 05/09/18 15:10 U Marijuana (THC) Screen Positive ng/mL (Cutoff = 50) H 05/09/18 15:10 Ur Drug Screen Interp See Below 05/09/18 15:10 Ethyl Alcohol < 10 mg/dL (Less than 10) 05/09/18 14:24 Consult Discharge Plan - Plan Referrals: Elsy,Markell Macias MD [Primary Care Provider] -
[2018-05-12 01:17] LABS: Basophils % 0.4 %; Eosinophils # 0.1 K/mcL (0.0-0.6); Eosinophils % 2.4 %; Hematocrit 34.1 % (35.3-44.9); Hemoglobin 11.8 g/dL (11.5-15.4); Immature Granulocytes % 0.4 % (0-4); Lymphocytes # 2.2 K/mcL (0.6-4.6); Mean Corpuscular HGB Conc 34.6 g/dL (31.6-35.5); Mean Corpuscular Hemoglobin 31.7 pg (28.0-33.3); Mean Corpuscular Volume 91.7 fL (83.0-100.0); Mean Platelet Volume 9.8 fL (9.4-12.4); Monocytes # 0.5 K/mcL (0.0-1.3); Monocytes % 9.3 %; Neutrophils # 2.6 K/mcL (1.6-8.9); Platelet Count 289 K/mcL (140-400); Red Blood Count 3.72 M/mcL (3.82-4.97); Red Cell Distribution Width 13.3 % (11.5-14.5); Segmented Neutrophils % 47.5 %
[2018-05-12 01:37] LABS: Alanine Aminotransferase 17 Units/L (7-52); Albumin 3.5 g/dL (3.5-5.7); Albumin/Globulin Ratio 1.5 (1.1-2.2); Alkaline Phosphatase 40 Units/L (34-104); Aspartate Amino Transferase 16 Units/L (13-39); BUN/Creatinine Ratio 8 (6-26); Bilirubin,Total 0.5 mg/dL (0.3-1.0); Blood Urea Nitrogen 5 mg/dL (6-20); Calcium 8.9 mg/dL (8.6-10.3); Carbon Dioxide 22 mEq/L (23-29); Chloride 112 mEq/L (98-107); Globulin 2.4 g/dL (2.4-3.5); Glucose 100 mg/dL (70-105); Osmolality,Calculated 285 (280-300); Potassium 3.4 mEq/L (3.5-5.1); Sodium 139 mEq/L (136-145); Total Protein 5.9 g/dL (6.4-8.9); eGFR For Non-African Americans > 60 (> 60)
[2018-05-12] MEDS: Pantoprazole 40 MG VIAL IVP SCH (07:37)
[2018-05-12] MEDS: Nicotine 14 MG PATCH.TD24 TD SCH (07:48)
--- NOTE | 2018-05-12 08:07 | Internal Med Progress Note ---
Hospitalist Progress Note - Encounter Date of Encounter: 05/12/18 Time of Encounter: 10:15 - Subjective Interval History: awake today with son at bedside. he took day off so to be avilable during psych re eval. Pt converses normally. She denies any pain, cp, palpitations. no new neuro deficits. has minimal rue and le weakness that is at baseline. tolerating oral intake without any difficulty. - Exam Vitals: Temp Pulse Resp BP Pulse Ox 98.3 F 63 16 153/76 98 05/12/18 07:46 05/12/18 07:46 05/12/18 07:46 05/12/18 07:46 05/12/18 07:46 Exam: General: awake, alert, appears stated age HEENT:EOM intact , pupils equal, round, moist mucus membranes Cardiovascular:regular rate and rhythm, normal S1 & S2, no rubs, murmurs or gallops. Lungs:Normal breath sounds, no wheezes, or crackles. Normal respiratory effort on room air Abdomen:Soft, non-tender, non-distended, + bowel sounds, no HSM Neurological: AAOx3, CN grossly intact, no focal deficits, she has very slight weakness in RUE and RLE that is barely appreciable from prior cva Skin:Normal color, no rash, no pallor, no jaundice - Assessment and Plan (1) Suicidal ideation Current Visit: Yes Status: Acute Assessment and Plan: Acute on chronic suicidal ideation. P t. voiced that she no longer wanted to live prior to being sedated in ED d/t aggression and anxiety. Pts. son states that she has stated this previously. Son reports that his brother of an OD approx. two years and was found frozen to outside. He states his mother has not been able to accept his . Pt. had previous psychiatric hospitalization approximately 3 years ago according to son -Suicide precautions. sitter -Ativan 1 mg IVP Q6HR for agitation/withdrawal. Pt. was pink-slipped by ED @ approx. 13:30 d/t suicidal ideations. -Psychiatry following, pt has not yet actively participated in eval, will fu psych recs as is medically stable at this time (2) Elevated troponin Current Visit: Yes Status: Acute Assessment and Plan: Acutely elevated troponin of 0.06 on admission, likely reactive to possible OD. -trend has remained stable 0.06-0.07 05/10 with first degree avb, normal HR, normal qtc 439ms and non specific tw changes without evidence of acute isch -Continuous cardiac telemetry. (3) MICHELE (acute kidney injury) Current Visit: Yes Status: Resolved Assessment and Plan: MICHELE w/GFR of 22 and creatinine of 2.36 on admission, likely d/t current dehydration versus possible OD. RESOLVED -UA no infection -Limited retroperitoneal US . no acute findings -Monitor I&O and daily weight. Mitchell catheter placed. -Pt. received two 1L boluses of 0.9 NS in ED to be followed by 100 mLs/HR. -avoid nephrotoxins -05/11 now awake and eating, dc ivfs and mitchell cath (4) Encephalopathy acute Current Visit: Yes Status: Resolved Assessment and Plan: Acute encephalopathy d/t OD or withdrawal versus dehydration versus possible CVA. RESOLVED Pt. 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 AT this time there is no new focal deficits, reisdual R hemiparesis from prior stroke. Only new neuro defitic is mentation -OD etiology unclear regarding medications pt. took and intent. -CT of the head/brain shows no acute intracranial abnormality, embolization coils are again seen in the region of the basilar artery as well as an aneurysm clip within the left middle cranial fossa, and postsurgical changes of the left calvarium with encephalomalacia involving left frontal and temporal lobes. -IVPB Keppra 500 mg BID. 1 mg IVP Ativan Q6HR for agitation/withdrawal. - Aspiration precautions. -Seizure precautions. -Suicide precautions. -Falls/safety precautions and up with assist only. -Mitchell catheter, since removed -neuro checks -Consider Neurology consult if pts. mentation does not improve or CVA is suspected. -Pt. is high risk for further morbidity and complications d/t current encephalopathy from unknown etiology (OD/withdrawal, dehydration, possible CVA) , current suicidal ideation requiring pt. to be pink-slipped and have sitter, hx of two active brain aneurysms, hx of seizures requiring IVPB Keppra, elevated troponin, MICHELE, hx, and risk factors. 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 Falls/safety precautions and up with assist only. PT/OT consults ordered. (6) HLD (hyperlipidemia) Current Visit: Yes Status: Chronic Assessment and Plan: Hx of chronic HLD. Lipid panel at goal -statin. (7) HTN (hypertension) Current Visit: Yes Status: Chronic Assessment and Plan: Hx of chronic HTN. BP now slowly elevating above goal -05/11 resume home lopressor 12.5 mg BID, HR has been normal 70-90s, if bp cont to elevate -05/12 add acei back (8) History of seizures Current Visit: Yes Status: Chronic Assessment and Plan: Hx of seizures. may resume oral keppra now that awake + home topamax, Monitor pt. for seizure activity d/t possible withdrawal. Seizure precautions. (9) DVT prophylaxis Current Visit: Yes Status: Acute Assessment and Plan: Bilateral SCDs on LEs for DVT prophylaxis d/t hx of two active brain aneurysms, two coiled brain aneurysms, and previous brain aneurysm that burst. (10) Thyroid disease Current Visit: Yes Status: Chronic Assessment and Plan: Hx of chronic thyroid disease. TSH 0.865 on admission. Will continue pts. PO Synthroid (11) Hypokalemia Current Visit: Yes Status: Acute Assessment and Plan: Acute hypokalemia w/potassium of 3.0 on admission, improving with oral repletion -Continuous cardiac telemetry. -has been receiving PO repletion now -mag near goal -cont to monitor (12) Positive urine drug screen Current Visit: Yes Status: Acute - Time Spent with Patient Total time spent is greater than 50% in coordination of care (as documented) at patient's floor/unit and/or counseling patient: 25 - 35 minutes Plan of Care Discussed with: patient Internal Medicine: Result - Labs CBC & Chem 7: 05/12/18 00:49 05/12/18 00:49 Labs: Short CBC 05/12/18 Range/Units 00:49 WBC 5.4 (4.3-11.1) K/mcL Hgb 11.8 (11.5-15.4) g/dL Hct 34.1 L (35.3-44.9) % Plt Count 289 (140-400) K/mcL Neutrophils # 2.6 (1.6-8.9) K/mcL BMP 05/12/18 00:49 Sodium 139 Potassium 3.4 L Chloride 112 H Carbon Dioxide 22 L BUN 5 L Creatinine 0.60 Glucose 100 Calcium 8.9 Liver Function 05/12/18 Range/Units 00:49 Total Bilirubin 0.5 (0.3-1.0) mg/dL AST 16 (13-39) Units/L ALT 17 (7-52) Units/L Alkaline Phosphatase 40 (34-104) Units/L Albumin 3.5 (3.5-5.7) g/dL - ABG Interpretation ABG results: PT/INR, D-dimer PT 11.6 Seconds (9.4-12.1) 05/09/18 13:25 Consult Discharge Plan - Plan Referrals: Elsy,Markell Macias MD [Primary Care Provider] - (6) HLD (hyperlipidemia) Qualifiers: Hyperlipidemia type: pure hypercholesterolemia Qualified Code(s): E78.00 - Pure hypercholesterolemia, unspecified; E78.0 - Pure hypercholesterolemia (7) HTN (hypertension) Qualifiers: Hypertension type: essential hypertension Qualified Code(s): I10 - Essential (primary) hypertension
[2018-05-12 11:19] VITALS: BP 147/82
--- NOTE | 2018-05-12 16:25 | Discharge Summary ---
- NOTES TO OUTPATIENT PROVIDER Notes to Outpatient Provider: she requires close outpt fu with PCP and with her established psychiatrist. asx mild trop elevation 0.06-. 0.07 without ischemic ekg changes may have been related to suspected overdose. Defer to PCP for further cardiac work up in outpt setting. She had low potassium and received oral repletion. Would benefit from bmp check at follow up appt Orders not resulted at time of discharge: Pending orders 05/13/18 04:00 BMP [Basic Metabolic Panel] AM 0400 Magnesium AM 0400 Date of Encounter: 05/12/18 Time of Encounter: 10:15 - Discharge Diagnosis (1) Encephalopathy acute Priority: Primary Status: Resolved Assessment and Plan: Acute encephalopathy d/t OD or withdrawal versus dehydration versus possible CVA. RESOLVED Pt. 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 no new focal deficits, residual R hemiparesis from prior stroke is mild. Only new neuro deficit was mentation change -OD etiology unclear regarding medications pt. took and intent, and for that reason psychiatry followed throughout admission. -CT of the head/brain shows no acute intracranial abnormality, embolization coils are again seen in the region of the basilar artery as well as an aneurysm clip within the left middle cranial fossa, and postsurgical changes of the left calvarium with encephalomalacia involving left frontal and temporal lobes. -Home keppra + 1 mg IVP Ativan Q6HR for agitation/withdrawal and seizure prevention while inpt - Aspiration precautions, -Seizure precautions. -Suicide precautions. -Falls/ safety precautions and up with assist only. -Pt. was high risk for further morbidity and complications d/t encephalopathy current suicidal ideation requiring pt. to be pink-slipped and have sitter, hx of two active brain aneurysms, hx of seizures requiring IVPB Keppra, elevated troponin, MICHELE, hx, and risk factors however her course was not a complicated one. She had a return to baseline mental status without complications and with son present was able to meet with psychiatry and give details of event and was cleared for dc to home with outpt psych fu with her established provider as verbally communcated by Dr Stallings of psychiatry on 05/12 (formal note pending at time of dc 05/12) 05/12 back to baseline mentation, can take all meds orally, eating and drinking without issue, no tele events (2) Suicidal ideation Priority: Secondary Status: Resolved Assessment and Plan: Acute on chronic suicidal ideation on presentation pt voiced that she no longer wanted to live prior to being sedated in ED d/t aggression and anxiety. Pts. son states that she has stated this previously. Son reports that his brother of an OD approx. two years and was found frozen to outside. He states his mother has not been able to accept his . Pt. had previous psychiatric hospitalization approximately 3 years ago according to son -Suicide precautions. sitter while inpt -Ativan 1 mg IVP Q6HR for agitation/withdrawal which she did not require Pt. was pink-slipped by ED d/t suicidal ideations. -Psychiatry following,throughout this admission 05/12 at baseline mentations and with son present was able to meet with psychiatry and give details of event and was cleared for dc to home with outpt psych fu with her established provider as verbally communicated by Dr Stallings of psychiatry on 05/12 (formal note pending at time of dc 05/12) -outpt psychiatry follow up, have held home cymbalta and benzo this admission, she did not require any prn benzo on admit. Will resume cymbalta and hold benzo on dc, defer to outpt psych for further recs re treatment of chronic issues (3) Elevated troponin Priority: Secondary Status: Acute Assessment and Plan: Acutely elevated troponin of 0.06 on admission, likely reactive to OD. -trend has remained stable 0.06-0.07 05/10 with first degree avb, normal HR, normal qtc 439ms and non specific tw changes without evidence of acute ischemia -Continuous cardiac telemetry while inpt -she may fu outpt with pcp frther further cardiac work up as she was asx and stable from cardiac standpoint throughout admit (4) MICHELE (acute kidney injury) Priority: Secondary Status: Resolved Assessment and Plan: MICHELE w/GFR of 22 and creatinine of 2.36 on admission, likely d/t current dehydration versus possible OD. RESOLVED -UA no infection -Limited retroperitoneal US . 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 Falls/safety precautions and up with assist only. PT/OT consults ordered. She had no new neuro deficits from baseline this admission (6) HLD (hyperlipidemia) Priority: Secondary Status: Chronic Assessment and Plan: Hx of chronic HLD. Lipid panel at goal -statin. Qualifiers: Hyperlipidemia type: pure hypercholesterolemia Qualified Code(s): E78.00 - Pure hypercholesterolemia, unspecified; E78.0 - Pure hypercholesterolemia (7) HTN (hypertension) Priority: Secondary Status: Chronic Assessment and Plan: Hx of chronic HTN. BP now slowly elevating above goal -05/11 resumed home lopressor 12.5 mg BID, HR has been normal 70-90s -05/12 add acei back -fu outpt for further BP monitoring and management Qualifiers: Hypertension type: essential hypertension Qualified Code(s): I10 - Essential (primary) hypertension (8) History of seizures Priority: Secondary Status: Chronic Assessment and Plan: Hx of seizures. cont home keppra + home topamax, no seizure activity this admission (9) DVT prophylaxis Priority: Secondary Status: Acute Assessment and Plan: Bilateral SCDs on LEs for DVT prophylaxis d/t hx of two active brain aneurysms, two coiled brain aneurysms, and previous brain aneurysm that burst. (10) Thyroid disease Priority: Secondary Status: Chronic Assessment and Plan: Hx of chronic thyroid disease. TSH 0.865 on admission. PO Synthroid (11) Hypokalemia Priority: Secondary Status: Acute Assessment and Plan: Acute hypokalemia w/potassium of 3.0 on admission, improving with oral repletion -Continuous cardiac telemetry. -has been receiving PO repletion now -mag near goal -repeat bmp outpt (12) Positive urine drug screen Priority: Primary Status: Acute Assessment and Plan: Acutely positive urine drug screen for amphetamines, benzodiazepines, and marijuana. Pts. son unsure if pt. took F/[place] medications or if someone took the medications out of the home. Son reports his cousins frequent the pts. home w/drugs -IVP Ativan 1 mg Q6HR for withdrawal/agitation was not required -held pt home pain medications Hospital course: Ms. Cee is a 52 year old female who presented with altered mental status and work up revealed polysubstance suspected overdose based on urine drug tox. She has mental health history and reportedly was making statements of SI prior to becoming altered. Details of event were not know at admission and ED pink slipped pt. Work up for other causes of change in mentation was unremarkable. She had a return to baseline mental status, without any new neuro deficits or concern for new cva, with holding of home sedating medications. Psychiatry followed her throughout her course. She remained medically stable throughout admission. Pt son was very involved and helpful throughout her care. He did not believe she intentionally hurt herself after discussing with her. She had a return to baseline mental status without complications and with son present was able to meet with psychiatry and give details of event and was cleared for dc to home with outpt psych fu with her established provider as verbally communicated by Dr Stallings of psychiatry on 05/12 (formal note pending at time of dc 05/12). See assessment and plan for the full details of of her hospital course. DC to home in stable condition with son. Discharge discussed with: patient - Time Spent with Patient Total time spent providing and/or coordinating discharge services: Less than 30 minutes - Discharge Medications Home Medications: DULoxetine [Cymbalta] 90 mg PO DAILY 05/09/18 [History] Donepezil [Aricept] 5 mg PO HS 05/09/18 [History] Famotidine [Pepcid] 20 mg PO BID 05/09/18 [History] Folic Acid 1 mg PO DAILY 05/09/18 [History] Gabapentin [Neurontin] 1,200 mg PO TID 05/09/18 [History] LevETIRAcetam [Keppra] 500 mg PO Q12H 05/09/18 [History] Levothyroxine [Synthroid] 100 mcg PO Q48H 05/09/18 [History] Levothyroxine [Synthroid] 112 mcg PO Q48H 05/09/18 [History] Lisinopril [Zestril] 5 mg PO DAILY 05/09/18 [History] Melatonin [Melatin] 3 mg PO HS 05/09/18 [History] Metoprolol [Lopressor] 12.5 mg PO BID 05/09/18 [History] Pravastatin Sodium 10 mg PO QPM 05/09/18 [History] Topiramate [Topamax] 25 mg PO BID 05/09/18 [History] Allergies/Adverse Reactions: 3 Allergy/AdvReac Type Severity Reaction Status Date / Time Sulfa (Sulfonamide AdvReac Hives Verified 05/09/18 13:14 Antibiotics) Date of admission: 05/09/18 18:26 Primary care physician: Markell Chin MD Consults: Psychiatry, seen on day of DC by Dr Stallings Discharging clinician: Shonda Segovia - Constitutional Vitals: Temp Pulse Resp BP Pulse Ox 97.9 F 55 16 147/82 99 05/12/18 11:15 05/12/18 11:15 05/12/18 11:15 05/12/18 11:15 05/12/18 11:15 General appearance: Present: A&O X 0 Exam: General: awake, alert, appears stated age HEENT:EOM intact , pupils equal, round, moist mucus membranes Cardiovascular:regular rate and rhythm, normal S1 & S2, no rubs, murmurs or gallops. Lungs:Normal breath sounds, no wheezes, or crackles. Normal respiratory effort on room air Abdomen:Soft, non-tender, non-distended, + bowel sounds, no HSM Neurological: AAOx3, CN grossly intact, no focal deficits, she has very slight weakness in RUE and RLE that is barely appreciable from prior cva Skin:Normal color, no rash, no pallor, no jaundice - Patient Status Disposition: Home, Self-Care Condition: Good - Discharge Instructions Follow Up With: Markell Chin MD [Primary Care Provider] - 05/19/18 2:00 pm Additional Instructions: SEE established Psychiatrist as soon as possible for follow up - Diet and Activity Activity: increase activity as tolerated Diet: advance to your usual diet
--- NOTE | 2018-05-12 17:27 | Consult Note ---
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 Cee is a 52 year old female. She is accompanied by her son Ronny who acts as her de facto power of trial attorney. He is able to provide a history. CC: I have been good. HPI: The patient was previously evaluated for altered mental status. When she was seen she was felt to have a restricted range of affect. There were some unexplained laboratory results and the patient was not able to communicate effectively. 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 She has significant word finding difficulty and dysnomia. Her son Ronny asked to be present when the doctor came up. I came to see the patient approximately 3:30. She is able to give me a history and to report that she has her own psychiatric follow-up. She is able to say that her mood is good that she has no suicidal ideation no psychosis. The patient's son Ronny is able to tell me that the home that she lives in is relatively secure. There are neighbors the check on her and he calls and talks to her every day. The patient denied suicidal ideation denied homicidal ideation. The patient has a psychiatrist who sees her and follows her for her treatment in fact she was scheduled to be seen today but the appointment was moved to June 03. The new regimen of medicines is Cymbalta 90 mg per day Aricept 5 mg daily at bedtime and gabapentin 1200 3 times a day. The patient has a history of seizures. She has significant cerebrovascular disease she has significant neurologic deficits and she walks with a cane. The patient's son Ronny reports that the patient will misspeak or substitute words and this may explain the previous interview. The patient has had cerebrovascular accident and this may account for the presence of affect of changes. She may even have pseudobulbar affect. Ronny reported that she was on Diazepam, but I cannot find this in [facility] records. CC: Shonda Segovia Past Med Surg Social Fam HX - Past Medical History Medical history: arthritis, CVA, GERD, hyperlipidemia, hypertension, thyroid disease, other - Past Psychiatric History Psychiatric history: Reports: depression Family psychiatric history: Unknown Family History of Suicide: Unknown - Past Surgical History Surgical History: hysterectomy (Total), other - Social History Smoking Status: Current every day smoker Smokeless Tobacco Status: No Alcohol use: none Drug use: none Occupational status: disabled Current living situation: Home Activity Level: Uses cane/walker Recent Out of Country Travel Within the Last 8 Weeks: No Exposure or Possible Exposure to Illness During Travel: No - Family History Father History Unknown: Yes Adopted: No ([employer] [facility]) Mother History Unknown: Yes Adopted: No ([employer]) Brother History Unknown: Yes Adopted: No ([employer]) Sister History Unknown: Yes Adopted: No ([employer]) Son Race: Family Member Ethnicity: Non- Living Status: Cause of : OD Hx Family Psychosocial Disorders: Yes (Drug abuse) Medications & Allergies DULoxetine [Cymbalta] 90 mg PO DAILY 05/09/18 [History] Donepezil [Aricept] 5 mg PO HS 05/09/18 [History] Famotidine [Pepcid] 20 mg PO BID 05/09/18 [History] Folic Acid 1 mg PO DAILY 05/09/18 [History] Gabapentin [Neurontin] 1,200 mg PO TID 05/09/18 [History] LevETIRAcetam [Keppra] 500 mg PO Q12H 05/09/18 [History] Levothyroxine [Synthroid] 100 mcg PO Q48H 05/09/18 [History] Levothyroxine [Synthroid] 112 mcg PO Q48H 05/09/18 [History] Lisinopril [Zestril] 5 mg PO DAILY 05/09/18 [History] Melatonin [Melatin] 3 mg PO HS 05/09/18 [History] Metoprolol [Lopressor] 12.5 mg PO BID 05/09/18 [History] Pravastatin Sodium 10 mg PO QPM 05/09/18 [History] Topiramate [Topamax] 25 mg PO BID 05/09/18 [History] 3 Allergy/AdvReac Type Severity Reaction Status Date / Time Sulfa (Sulfonamide AdvReac Hives Verified 05/09/18 13:14 Antibiotics) Review of Systems Psychiatric: Reports: depression, confusion, difficulty concentrating Psychiatry Exam - Constitutional Vitals: Temp Pulse Resp BP Pulse Ox 97.9 F 55 16 147/82 99 05/12/18 11:15 05/12/18 11:15 05/12/18 11:15 05/12/18 11:15 05/12/18 11:15 General appearance: unkempt - Psychiatric Patient Orientation: Yes Person, Yes Time Level of alertness: Alert Psychomotor activity: Slowed Eye Contact: Maintains Eye Contact Mood Description: Anxious Affect description: congruent with mood Speech Volume: Soft/Quiet Speech pattern: normal rhythm, slowed Language & Vocabulary: difficulty finding words, anomia Thought Process: Logical Thought Content: Yes Intact Perceptual Disturbances: No Auditory hallucinations, No Visual hallucinations Attention Span Ability: Capable of Sustained Attention Patient Reliability: Questionable Historian Fund of knowledge: Yes average Intelligence Estimate: Below Average Judgment: Limited Insight: Minimal Results - Labs Labs: Laboratory Last Values WBC 5.4 K/mcL (4.3-11.1) 05/12/18 00:49 RBC 3.72 M/mcL (3.82-4.97) L 05/12/18 00:49 Hgb 11.8 g/dL (11.5-15.4) 05/12/18 00:49 Hct 34.1 % (35.3-44.9) L 05/12/18 00:49 MCV 91.7 fL (83.0-100.0) 05/12/18 00:49 MCH 31.7 pg (28.0-33.3) 05/12/18 00:49 MCHC 34.6 g/dL (31.6-35.5) 05/12/18 00:49 RDW 13.3 % (11.5-14.5) 05/12/18 00:49 Plt Count 289 K/mcL (140-400) 05/12/18 00:49 MPV 9.8 fL (9.4-12.4) 05/12/18 00:49 Immature Gran % 0.4 % (0-4) 05/12/18 00:49 Seg Neutrophils % 47.5 % 05/12/18 00:49 Lymphocytes % 40.0 % 05/12/18 00:49 Monocytes % 9.3 % 05/12/18 00:49 Eosinophils % 2.4 % 05/12/18 00:49 Basophils % 0.4 % 05/12/18 00:49 Neutrophils # 2.6 K/mcL (1.6-8.9) 05/12/18 00:49 Lymphocytes # 2.2 K/mcL (0.6-4.6) 05/12/18 00:49 Monocytes # 0.5 K/mcL (0.0-1.3) 05/12/18 00:49 Eosinophils # 0.1 K/mcL (0.0-0.6) 05/12/18 00:49 Basophils # 0.0 K/mcL (0.0-0.2) 05/12/18 00:49 PT 11.6 Seconds (9.4-12.1) 05/09/18 13:25 INR 1.0 05/09/18 13:25 APTT 29.4 Seconds (26.0-36.0) 05/09/18 13:25 Sodium 139 mEq/L (136-145) 05/12/18 00:49 Potassium 3.4 mEq/L (3.5-5.1) L 05/12/18 00:49 Chloride 112 mEq/L (98-107) H 05/12/18 00:49 Carbon Dioxide 22 mEq/L (23-29) L 05/12/18 00:49 BUN 5 mg/dL (6-20) L 05/12/18 00:49 Creatinine 0.60 mg/dL (0.60-1.20) 05/12/18 00:49 Est GFR ( Amer) > 60 (> 60) 05/12/18 00:49 Est GFR (Non-Af Amer) > 60 (> 60) 05/12/18 00:49 BUN/Creatinine Ratio 8 (6-26) 05/12/18 00:49 Glucose 100 mg/dL (70-105) 05/12/18 00:49 POC Glucose 126 mg/dL (70-99) H 05/12/18 12:31 Est Mean Plasma Glucose 108 mg/dl 05/10/18 02:24 Hemoglobin A1c 5.4 % (-5.6) 05/10/18 02:24 Calculated Osmolality 285 (280-300) 05/12/18 00:49 Calcium 8.9 mg/dL (8.6-10.3) 05/12/18 00:49 Phosphorus 3.5 mg/dL (2.7-4.5) 05/10/18 02:24 Magnesium 1.8 mg/dL (1.6-2.6) 05/11/18 01:11 Total Bilirubin 0.5 mg/dL (0.3-1.0) 05/12/18 00:49 Direct Bilirubin 0.2 mg/dL (0.0-0.2) 05/09/18 14:24 Indirect Bilirubin 0.2 mg/dL (0.0-1.2) 05/09/18 14:24 AST 16 Units/L (13-39) 05/12/18 00:49 ALT 17 Units/L (7-52) 05/12/18 00:49 Alkaline Phosphatase 40 Units/L (34-104) 05/12/18 00:49 Ammonia 34 mcmol/L (16-53) 05/09/18 15:33 Troponin I 0.06 ng/mL (< 0.04) H* 05/10/18 02:24 Serum Total Protein 5.9 g/dL (6.4-8.9) L 05/12/18 00:49 Albumin 3.5 g/dL (3.5-5.7) 05/12/18 00:49 Globulin 2.4 g/dL (2.4-3.5) 05/12/18 00:49 Albumin/Globulin Ratio 1.5 (1.1-2.2) 05/12/18 00:49 Triglycerides 66 mg/dL (< 150) 05/10/18 02:24 Cholesterol 116 mg/dL (< 200) 05/10/18 02:24 LDL Cholesterol, Calc 61 mg/dL (0-99) 05/10/18 02:24 VLDL Cholesterol, Calc 13 mg/dL (< 31) 05/10/18 02:24 HDL Cholesterol 42 mg/dL (40-59) 05/10/18 02:24 Cholesterol/HDL Ratio 2.8 (0-4.9) 05/10/18 02:24 TSH 0.865 mcIU/mL (0.340-5.600) 05/09/18 14:24 Urine Color Yellow (Yellow) 05/09/18 15:10 Urine Clarity Cloudy (Clear) A 05/09/18 15:10 Urine pH 5.0 pH Units (5.0-8.0) 05/09/18 15:10 Ur Specific [place] 1.014 (1.010-1.025) 05/09/18 15:10 Urine Protein Negative mg/dL (Neg-Trace) 05/09/18 15:10 Urine Glucose (UA) Normal mg/dL (Normal) 05/09/18 15:10 Urine Ketones Negative mg/dL (Negative) 05/09/18 15:10 Urine Blood Negative (Negative) 05/09/18 15:10 Urine Nitrite Negative (Negative) 05/09/18 15:10 Urine Bilirubin Negative (Negative) 05/09/18 15:10 Urine Urobilinogen Normal mg/dL (Normal) 05/09/18 15:10 Ur Leukocyte Esterase Negative (Negative) 05/09/18 15:10 Urine Microscopic RBC 5-15 per hpf (0-3) H 05/09/18 15:10 Urine Microscopic WBC 0-3 per hpf (0-3) 05/09/18 15:10 Ur Squamous Epith Cells Many per lpf (None-Few) H 05/09/18 15:10 Urine Bacteria Many per hpf (None-Few) H 05/09/18 15:10 Hyaline Casts None Seen per lpf (None-Few) 05/09/18 15:10 Ur Culture Indicated? NO (NO) 05/09/18 15:10 Salicylates < 2.5 mg/dL (15.0-30.0) L 05/09/18 14:24 Urine Opiates Screen Negative ng/mL (Vnnbac=294) 05/09/18 15:10 Acetaminophen < 10 mcg/mL (10-20) L 05/09/18 14:24 Ur Barbiturates Screen Negative ng/mL (Wifhiv=687) 05/09/18 15:10 Ur Phencyclidine Scrn Negative ng/mL (Cutoff=25) 05/09/18 15:10 Ur Amphetamines Screen Positive ng/mL (Rosizo=2407) H 05/09/18 15:10 U Benzodiazepines Scrn Positive ng/mL (Izbqwf=033) H 05/09/18 15:10 Urine Cocaine Screen Negative ng/mL (Cutoff= 300) 05/09/18 15:10 U Marijuana (THC) Screen Positive ng/mL (Cutoff = 50) H 05/09/18 15:10 Ur Drug Screen Interp See Below 05/09/18 15:10 Ethyl Alcohol < 10 mg/dL (Less than 10) 05/09/18 14:24 Consult Discharge Plan - Plan Additional Instructions: SEE established Psychiatrist as soon as possible for follow up f/u scheduled Referrals: Markell Chin MD [Primary Care Provider] - 05/19/18 2:00 pm
[2018-05-12] MEDS ORDERED: levETIRAcetam 250 MG TABLET PO SCH (18:00)
[2018-05-12] MEDS ORDERED: Topiramate 25 MG TABLET PO SCH (21:00)
--- NOTE | 2018-05-14 16:30 | Electrocardiograph Report ---
[address] [address] Test Date: 2018-05-10 Pat Name: Radha Cee Department: 115 Room: 3A11 Gender: Transformation Architect: : 1965 Requested By: Shonda Segovia Order Number: [id number] Reading MD: Praveen De La Cruz Measurements Intervals [place] Rate: 80 P: 54 AR: 221 QRS: 36 QRSD: 94 T: 51 QT: 402 QTc: 439 Interpretive Statements SINUS RHYTHM WITH FIRST DEGREE AV BLOCK NONSPECIFIC T-WAVE ABNORMALITY Electronically Signed On 05-14-2018 16:28:46 EDT by Praveen De La Cruz
== END 2018-05-12 17:25 | disposition home or self-care (01) | DRG 812 ==
LOC: 3ANU 13:01 → EMEROOARM 13:01 → 3ANU 17:31 → SUATTDRO 18:26
PROVIDERS: ADMIT Internal Medicine; ATTEND Internal Medicine

== ENCOUNTER 2018-10-07 13:52 | Inpatient (IN) ==
--- NOTE | 2018-10-07 14:27 | Emergency Department Note ---
Disposition Clinical Impression: Suicidal ideation Depression Qualifiers: Depression Type: unspecified Qualified Code(s): F32.9 - Major depressive disorder, single episode, unspecified Disposition: Admitted As Inpatient Condition: Good Time of Disposition: 15:32 General Adult HPI - General Chief complaint: ED Psychiatric Symptoms Stated complaint: SI Time Seen by Provider: 10/07/18 13:54 Source: patient, EMS Limitations: no limitations Nursing Notes Reviewed: Yes Vital Signs Reviewed: Yes - History of Present Illness HPI Narrative: Female patient presents emergency department and is tearful on arrival. She is complaining that she feels very depressed. Is needing two-year one-month anniversary of her son's . States she does have a psychiatric history and has been taking her medication. She states that she told her counselor today that she wanted to kill herself. Questions about this she does endorse suicidal ideation she denies homicidal ideation. I did ask her about hallucinations and she said yes she has them but she is unaware if they are real or not. She cannot elaborate any further on this. She states she feels safe while here. When asked about a plan for a size she states anyway she possibly can. She does have a suicidal attempt 3 months ago. She states that she cut her wrists that time. She has no other complaints currently. Denies any nausea vomiting or diarrhea. Denies any cough or congestion. Pain Scale: 0 - Related Data Home Medications Medication Instructions Recorded Confirmed RX: DULoxetine [Cymbalta] 90 mg PO DAILY 05/09/18 10/07/18 RX: Donepezil [Aricept] 5 mg PO HS 05/09/18 10/07/18 RX: Famotidine [Pepcid] 20 mg PO BID 05/09/18 10/07/18 RX: Folic Acid 1 mg PO DAILY 05/09/18 10/07/18 RX: LevETIRAcetam [Keppra] 500 mg PO Q12H 05/09/18 10/07/18 RX: Levothyroxine [Synthroid] 100 mcg PO Q48H 05/09/18 10/07/18 RX: Levothyroxine [Synthroid] 112 mcg PO Q48H 05/09/18 10/07/18 RX: Lisinopril [Zestril] 5 mg PO DAILY 05/09/18 10/07/18 RX: Melatonin [Melatin] 3 mg PO HS 05/09/18 10/07/18 RX: Metoprolol [Lopressor] 12.5 mg PO BID 05/09/18 10/07/18 RX: Pravastatin Sodium 10 mg PO QPM 05/09/18 10/07/18 RX: Topiramate [Topamax] 25 mg PO BID 05/09/18 10/07/18 Naproxen 500 mg PO BID 10/07/18 10/07/18 RX: Gabapentin [Neurontin] 300 mg PO TID 10/07/18 10/07/18 RX: traZODone [TraZODone] 75 mg PO HS 10/07/18 10/07/18 Rizatriptan Benzoate [[employer]] 10 mg SL DAILY PRN 10/07/18 10/07/18 Allergies Allergy/AdvReac Type Severity Reaction Status Date / Time Sulfa (Sulfonamide AdvReac Hives Verified 05/09/18 13:14 Antibiotics) All systems ED: reviewed and negative except as stated. Review of Systems: As Per HPI Constitutional: Denies: fever, chills Respiratory: Denies: cough, dyspnea Gastrointestinal: Denies: abdominal pain, nausea, vomiting, diarrhea Psychiatric: Reports: depression, suicidal thoughts. Denies: homicidal thoughts Past Medical History - Past Medical History Attestation: Yes The following information was validated with the patient. Source: patient Medical history: Reports: arthritis, CVA, GERD, hyperlipidemia, hypertension, thyroid disease, other Surgical history: Reports: hysterectomy (Total), other Psychiatric history: Reports: depression - Social History Smoking Status: Current every day smoker Smokeless Tobacco Status: No Alcohol use: Reports: none Drug use: Reports: none Physical Exam - General Limitations: no limitations General appearance: alert, in no apparent distress - Head Head exam: atraumatic, normocephalic, normal inspection - Eye Eye exam: Present: normal appearance, PERRL, EOMI - ENT ENT exam: normal exam, normal oropharynx, mucous membranes moist - Neck Neck exam: Present: normal inspection, full ROM, trachea midline - Chest Chest inspection: Present: normal inspection, symmetric chest wall rise - Respiratory Respiratory exam: Present: normal lung sounds bilaterally. Absent: respiratory distress, accessory muscle use - Cardiovascular Cardiovascular exam: Present: regular rate, normal rhythm, systolic murmur - Abdominal Exam Abdominal exam: Present: soft, Non-Tender. Absent: tenderness, distention, guarding, rebound, rigidity - Extremities Exam Extremities exam: Present: normal inspection, full ROM, normal capillary refill. Absent: tenderness, pedal edema - Neurological Exam Neurological exam: Present: alert, oriented X3 - Psychiatric Psychiatric exam: Present: depressed, suicidal ideation. Absent: homicidal ideation - Skin Skin exam: Present: warm, dry, intact, normal color. Absent: rash, cyanosis Course Course Narrative: Female patient presenting with suicidal ideation. No discrete plan the states that she would do anything to kill herself. We will get a basic workup on patient and have her admitted to our psychiatric team as they are aware that she is here. Vital Signs Temperature 98.4 F 10/07/18 14:00 Pulse Rate 70 10/07/18 14:00 Respiratory Rate 17 10/07/18 14:00 Blood Pressure 148/93 10/07/18 14:00 O2 Sat by Pulse Oximetry 94 10/07/18 14:00 Temperature 98.4 F 10/07/18 14:00 Pulse Rate 70 10/07/18 14:00 Respiratory Rate 17 10/07/18 14:00 Blood Pressure 148/93 10/07/18 14:00 O2 Sat by Pulse Oximetry 94 10/07/18 14:00 Oxygen Delivery Oxygen Delivery Room Air Medical Decision Making - Medical Records Medical records reviewed: Yes I reviewed the patient's medical records. - Lab Data Lab results reviewed: Yes I reviewed the patient's lab results. Result diagrams: 10/07/18 14:23 10/07/18 14:23 Lab Results 10/07/18 10/07/18 10/07/18 Range/Units 14:23 14:23 14:40 WBC 6.9 (4.3-11.1) K/mcL RBC 3.98 (3.82-4.97) M/mcL Hgb 12.5 (11.5-15.4) g/dL Hct 37.5 (35.3-44.9) % MCV 94.2 (83.0-100.0) fL MCH 31.4 (28.0-33.3) pg MCHC 33.3 (31.6-35.5) g/dL RDW 12.3 (11.5-14.5) % Plt Count 294 (140-400) K/mcL MPV 10.2 (9.4-12.4) fL Immature Gran % 0.3 (0-4) % Seg Neutrophils % 52.9 % Lymphocytes % 36.4 % Monocytes % 5.8 % Eosinophils % 3.9 % Basophils % 0.7 % Neutrophils # 3.6 (1.6-8.9) K/mcL Lymphocytes # 2.5 (0.6-4.6) K/mcL Monocytes # 0.4 (0.0-1.3) K/mcL Eosinophils # 0.3 (0.0-0.6) K/mcL Basophils # 0.1 (0.0-0.2) K/mcL Sodium 137 (136-145) mEq/L Potassium 3.8 (3.5-5.1) mEq/L Chloride 106 (98-107) mEq/L Carbon Dioxide 25 (23-29) mEq/L BUN 16 (6-20) mg/dL Creatinine 0.60 (0.60-1.20) mg/dL Est GFR ( Amer) > 60 (> 60) Est GFR (Non-Af Amer) > 60 (> 60) BUN/Creatinine Ratio 27 H (6-26) Glucose 93 (70-105) mg/dL Calculated Osmolality 285 (280-300) Calcium 9.3 (8.6-10.3) mg/dL TSH 0.702 (0.340-5.600) mcIU/mL Urine Color Yellow (Yellow) Urine Clarity Clear (Clear) Urine pH 7.0 (5.0-8.0) pH Units Ur Specific [place] 1.014 (1.010-1.025) Urine Protein Negative (Neg-Trace) mg/dL Urine Glucose (UA) Normal (Normal) mg/dL Urine Ketones Negative (Negative) mg/dL Urine Blood Negative (Negative) Urine Nitrite Negative (Negative) Urine Bilirubin Negative (Negative) Urine Urobilinogen Normal (Normal) mg/dL Ur Leukocyte Esterase Negative (Negative) Salicylates < 2.5 L (15.0-30.0) mg/dL Acetaminophen < 10 L (10-20) mcg/mL Ur Drug Screen Interp Ethyl Alcohol < 10 (Less than 10) mg/dL 10/07/18 Range/Units 14:40 WBC (4.3-11.1) K/mcL RBC (3.82-4.97) M/mcL Hgb (11.5-15.4) g/dL Hct (35.3-44.9) % MCV (83.0-100.0) fL MCH (28.0-33.3) pg MCHC (31.6-35.5) g/dL RDW (11.5-14.5) % Plt Count (140-400) K/mcL MPV (9.4-12.4) fL Immature Gran % (0-4) % Seg Neutrophils % % Lymphocytes % % Monocytes % % Eosinophils % % Basophils % % Neutrophils # (1.6-8.9) K/mcL Lymphocytes # (0.6-4.6) K/mcL Monocytes # (0.0-1.3) K/mcL Eosinophils # (0.0-0.6) K/mcL Basophils # (0.0-0.2) K/mcL Sodium (136-145) mEq/L Potassium (3.5-5.1) mEq/L Chloride (98-107) mEq/L Carbon Dioxide (23-29) mEq/L BUN (6-20) mg/dL Creatinine (0.60-1.20) mg/dL Est GFR ( Amer) (> 60) Est GFR (Non-Af Amer) (> 60) BUN/Creatinine Ratio (6-26) Glucose (70-105) mg/dL Calculated Osmolality (280-300) Calcium (8.6-10.3) mg/dL TSH (0.340-5.600) mcIU/mL Urine Color (Yellow) Urine Clarity (Clear) Urine pH (5.0-8.0) pH Units Ur Specific [place] (1.010-1.025) Urine Protein (Neg-Trace) mg/dL Urine Glucose (UA) (Normal) mg/dL Urine Ketones (Negative) mg/dL Urine Blood (Negative) Urine Nitrite (Negative) Urine Bilirubin (Negative) Urine Urobilinogen (Normal) mg/dL Ur Leukocyte Esterase (Negative) Salicylates (15.0-30.0) mg/dL Acetaminophen (10-20) mcg/mL Ur Drug Screen Interp See Below Ethyl Alcohol (Less than 10) mg/dL - Radiology Data Radiology results reviewed: Yes I reviewed the patient's radiology results. Attestation Statement - Attestation Attestation: Resident Attestation: I examined this patient and my medical decision making was reviewed with the Resident Physician. I agree with the documented findings, disposition and treatment plan as described except to the extent set forth below. We independently had [id number] contact with the patient. Patient presenting for concern for suicidal ideation and no specific plan. Patient does have a significant history of depression. Followed by psychiatry. I was notified by psychiatry that once she is medically cleared she has been excepted. Medically cleared. Awaiting laboratory clearance. No acute distress, regular rate and rhythm, clear to auscultation laterally, abdomen soft nontender palpation. Patient accepted to [facility] further treatment.
[2018-10-07 14:50] LABS: Basophils # 0.1 K/mcL (0.0-0.2); Basophils % 0.7 %; Eosinophils # 0.3 K/mcL (0.0-0.6); Eosinophils % 3.9 %; Hematocrit 37.5 % (35.3-44.9); Hemoglobin 12.5 g/dL (11.5-15.4); Immature Granulocytes % 0.3 % (0-4); Lymphocytes # 2.5 K/mcL (0.6-4.6); Lymphocytes % 36.4 %; Mean Corpuscular HGB Conc 33.3 g/dL (31.6-35.5); Mean Corpuscular Hemoglobin 31.4 pg (28.0-33.3); Mean Corpuscular Volume 94.2 fL (83.0-100.0); Mean Platelet Volume 10.2 fL (9.4-12.4); Monocytes # 0.4 K/mcL (0.0-1.3); Monocytes % 5.8 %; Neutrophils # 3.6 K/mcL (1.6-8.9); Platelet Count 294 K/mcL (140-400); Red Blood Count 3.98 M/mcL (3.82-4.97); Red Cell Distribution Width 12.3 % (11.5-14.5); Segmented Neutrophils % 52.9 %
[2018-10-07 15:16] LABS: Acetaminophen < 10 mcg/mL (10-20); BUN/Creatinine Ratio 27 (6-26); Blood Urea Nitrogen 16 mg/dL (6-20); Calcium 9.3 mg/dL (8.6-10.3); Carbon Dioxide 25 mEq/L (23-29); Chloride 106 mEq/L (98-107); Ethanol < 10 mg/dL (Less than 10); Glucose 93 mg/dL (70-105); Osmolality,Calculated 285 (280-300); Potassium 3.8 mEq/L (3.5-5.1); Salicylate < 2.5 mg/dL (15.0-30.0); Sodium 137 mEq/L (136-145); eGFR For Non-African Americans > 60 (> 60)
[2018-10-07 15:25] LABS: Bilirubin,Urine Negative (Negative); Blood,Urine Negative (Negative); Clarity,Urine Clear (Clear); Color,Urine Yellow (Yellow); Glucose,Urine (UA) Normal (Normal); Ketones,Urine Negative (Negative); Leukocyte Esterase,Urine Negative (Negative); Nitrite,Urine Negative (Negative); Protein,Urine Negative (Neg-Trace); Specific Gravity,Urine 1.014 (1.010-1.025); Urobilinogen,Urine Normal (Normal)
[2018-10-07 15:26] LABS: Thyroid Stimulating Hormone 0.702 mcIU/mL (0.340-5.600)
[2018-10-07 15:43] LABS: Amphetamine Screen,Urine Negative ng/mL (Cutoff=1000); Barbiturate Screen,Urine Negative ng/mL (Cutoff=200); Benzodiazepines Screen,Urine Negative ng/mL (Cutoff=200); Cannabinoid Screen,Urine Positive ng/mL (Cutoff = 50); Cocaine Screen,Urine Negative ng/mL (Cutoff= 300); Opiate Screen,Urine Negative ng/mL (Cutoff=300); Phencyclidine Screen,Urine Negative ng/mL (Cutoff=25)
[2018-10-07] MEDS ORDERED: *HR* LORazepam 1 MG TABLET PO PRN (17:01)
[2018-10-07] MEDS ORDERED: MOM Conc 10 ML UD.LIQ PO PRN (17:01)
[2018-10-07] MEDS ORDERED: Mag Hydrox/Al Hydrox/Simeth 30 ML UDC PO PRN (17:01)
[2018-10-07] MEDS ORDERED: hydrOXYzine pamoate 25 MG CAPSULE PO PRN (17:01)
[2018-10-07] MEDS ORDERED: Haloperidol Lactate 5 MG/ML VIAL IM PRN (17:01)
[2018-10-07] MEDS ORDERED: Ibuprofen 400 MG TABLET PO PRN (17:01)
[2018-10-07] MEDS ORDERED: *HR* LORazepam 2 MG/ML VIAL IM PRN (17:01)
[2018-10-07] MEDS ORDERED: traZODone 50 MG TABLET PO PRN (17:01)
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
[2018-10-08] MEDS: levETIRAcetam 250 MG TABLET PO SCH ×2 (11:29→22:15)
[2018-10-08] MEDS: diazePAM 10 MG TABLET PO SCH ×2 (11:29→21:11)
[2018-10-08] MEDS: Famotidine 20 MG TABLET PO SCH ×2 (11:29→21:11)
[2018-10-08] MEDS: Folic Acid 1 MG TABLET PO SCH (11:30)
[2018-10-08] MEDS: Gabapentin 300 MG CAPSULE PO SCH ×3 (11:30→21:11)
[2018-10-08] MEDS: Nicotine 21 MG PATCH.TD24 TD SCH (11:32)
[2018-10-08] MEDS ORDERED: traZODone 50 MG TABLET PO PRN (13:21)
[2018-10-08] MEDS: Topiramate 25 MG TABLET PO SCH (21:10)
[2018-10-08] MEDS: Melatonin 3 MG TABLET PO SCH (21:11)
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
[2018-10-09] MEDS: Gabapentin 300 MG CAPSULE PO SCH ×3 (08:59→20:49)
[2018-10-09] MEDS: Famotidine 20 MG TABLET PO SCH ×2 (08:59→20:51)
[2018-10-09] MEDS: Folic Acid 1 MG TABLET PO SCH (08:59)
[2018-10-09] MEDS: Topiramate 25 MG TABLET PO SCH ×2 (08:59→20:49)
[2018-10-09] MEDS: diazePAM 10 MG TABLET PO SCH ×2 (09:00→20:49)
[2018-10-09] MEDS: Nicotine 21 MG PATCH.TD24 TD SCH (09:36)
[2018-10-09] MEDS: levETIRAcetam 250 MG TABLET PO SCH ×2 (09:53→21:57)
[2018-10-09] MEDS: Melatonin 3 MG TABLET PO SCH (20:51)
[2018-10-10] MEDS: Nicotine 21 MG PATCH.TD24 TD SCH (08:16)
[2018-10-10] MEDS: Famotidine 20 MG TABLET PO SCH (08:18)
[2018-10-10] MEDS: Gabapentin 300 MG CAPSULE PO SCH (08:18)
[2018-10-10] MEDS: Topiramate 25 MG TABLET PO SCH (08:18)
[2018-10-10] MEDS: diazePAM 10 MG TABLET PO SCH (08:18)
[2018-10-10] MEDS: Folic Acid 1 MG TABLET PO SCH (08:18)
--- NOTE | 2018-10-10 09:42 | Discharge Summary ---
Date of Encounter: 10/10/18 Time of Encounter: 09:36 Diagnosis - Discharge Diagnosis (1) Major depressive disorder, recurrent episode with anxious distress Status: Chronic (2) Major neurocognitive disorder due to vascular disease, without behavioral disturbance, severe Status: Chronic Medications - Discharge Medications Prescriptions: diazePAM [Valium] 5 mg PO BID 30 Days #60 tablet DULoxetine [Cymbalta] 90 mg PO DAILY #30 capsule. Donepezil [Aricept] 5 mg PO HS 05/09/18 [History] Famotidine [Pepcid] 20 mg PO BID 05/09/18 [History] Folic Acid 1 mg PO DAILY 05/09/18 [History] LevETIRAcetam [Keppra] 500 mg PO Q12H 05/09/18 [History] Levothyroxine [Synthroid] 100 mcg PO Q48H 05/09/18 [History] Levothyroxine [Synthroid] 112 mcg PO Q48H 05/09/18 [History] Lisinopril [Zestril] 5 mg PO DAILY 05/09/18 [History] Melatonin [Melatin] 3 mg PO HS 05/09/18 [History] Metoprolol [Lopressor] 12.5 mg PO BID 05/09/18 [History] Pravastatin Sodium 10 mg PO QPM 05/09/18 [History] Topiramate [Topamax] 25 mg PO BID 05/09/18 [History] Gabapentin [Neurontin] 300 mg PO TID 10/07/18 [History] Naproxen 500 mg PO BID 10/07/18 [History] Rizatriptan Benzoate [Maxalt [employer] Torque Tester] 10 mg SL DAILY PRN 10/07/18 [History] traZODone [TraZODone] 75 mg PO HS 10/07/18 [History] DULoxetine [Cymbalta] 90 mg PO DAILY #30 capsule. 10/10/18 [Rx] diazePAM [Valium] 5 mg PO BID 30 Days #60 tablet 10/10/18 [Rx] Allergy/AdvReac Type Severity Reaction Status Date / Time Sulfa (Sulfonamide AdvReac Hives Verified 05/09/18 13:14 Antibiotics) Results Procedures and tests throughout hospitalization: Completed Lab Orders Category Date Time Status Acetaminophen Stat Lab 10/07/18 14:23 Completed Basic Metabolic Panel Stat Lab 10/07/18 14:23 Completed Complete Blood Count [HEME] Stat Lab 10/07/18 14:23 Completed Drug Screen, Urine [UCHEM] Stat Lab 10/07/18 14:40 Completed Ethanol Stat Lab 10/07/18 14:23 Completed Salicylate Stat Lab 10/07/18 14:23 Completed Thyroid Stimulating Hormone Stat Lab 10/07/18 14:23 Completed Urinalysis reflex Microscopic [URIN] Stat Lab 10/07/18 14:40 Completed Provider Date of admission: 10/07/18 15:43 Primary care physician: PCP NONE Consults: 10/07/18 17:14 Consult to Pastoral Services [CONS] Routine Comment: Discharging clinician: Bebe Joseph Psychiatry Exam - Constitutional Vitals: Temp Pulse Resp BP Pulse Ox 98.3 F 82 16 118/87 98 10/09/18 21:00 10/09/18 21:00 10/09/18 21:00 10/09/18 21:00 10/09/18 21:00 Additional observations: Patient is alert and oriented [address] time and situation, muscle tone grossly intact, speech normal limits for rhythm, rate, content and volume. Muscle tone is normal for patient. Grooming and hygiene are appropriate and eye contact is maintained appropriately. The patient appears age appropriate. Behavior is cooperative. Thought content is negative for suicidal or homicidal thoughts ideations or plans. There are no hallucinations or delusions. Mood is good and affect is reactive, consistent and congruent. Thought process is linear, logical, goal oriented and coherent thought. Memory is intact to recent and remote as the patient is able to recall several items after a delay and can consistently recall childhood information. Language and vocabulary are consistent with education and intelligence is estimated to be average based on education and general fund of information. Concentration and attention are sustained and appropriate. Insight and judgment are intact as the patient agrees with the mental health diagnosis and the need for ongoing mental health treatment. Hospital Course Hospital course: Ms. Cee is a 53 year old female Who is admitted for depression, anxiety, and suicidal ideations. Her Cymbalta was increased to 90 mg a day for the depression and anxiety and she was started back on Valium which she had done well on in the past according to her and her son. Patient was educated of diagnosis and the risk-benefit side effects of this alternative treatment options and was monitored for responsiveness and side effects. Mood anxiety sleep and appetite interest improved as did future orientation. Self-harm thoughts subsided, thinking cleared, psychosis resolved, and mood stabilized. Patient was able to attend both individual and group therapy sessions as well as meet with the psychiatrist daily and urged to discuss any medication or treatment issues or other concerns. The patient was educated primarily by verbal means about their diagnosis and manifestations in their life. The option for treatment including group and individual therapy programming was offered to the patient in addition to the use of medications with all their potential risks, benefits, and side effects as well as the risks of not taking medication and non-adhereance were discussed with the patient at length. The patient was given the opportunity to ask questions and was noted to participate in the treatment in the planning process. The patient felt ready and eager to be discharged from the inpatient psychiatric unit to continue on with treatment as an outpatient. The patient agreed that is they were safe for this disposition. The patient was considered to be able to participate in informed consent and decision making with respect to medical, legal, and financial issues of the time of discharge. At the time of discharge the patient adamantly denied any concerns for lethality including suicidal or homicidal thoughts ideations or plans and was future oriented toward ongoing mental health care, medical follow-up and sobriety. Time spent discussing smoking cessation with patient: 3 to 10 minutes Does patient wish to continue nicotine replacement upon disc: No - Time Spent with Patient Total time spent providing and/or coordinating discharge services: Less than 30 minutes Specific discharge activities: Interval history reviewed. Available labs reviewed . Psychotherapy provided. Patient had an opportunity to ask questions and address concerns. Patient was in agreement with the treatment plan. The risks benefits and side effects of medications were discussed with the patient, including alternatives and treatment. The patient was educated on the abstaining from any alcohol or illicit substances, following up with all scheduled appointments, and taking all medications as prescribed. Assessment and Plan - Patient/Caregiver Discharge Instructions Activity: resume usual activities as tolerated Diet: regular diet Additional Instructions: Continue current medications. Follow up with outpatient mental health. Encourage continued therapy in a group or individual setting. The patient was discharged to home. - Follow up Plan Follow up with: NONE,PCP [Primary Care Provider] - Functional capacity at discharge: independent ambulation Overall status at discharge: Stable Disposition: Home, Self-Care Quality - Multiple Antipsychotics Patient discharged on 2 or more antipsychotic medications: No Procedures - Procedures Procedures: Medication Management, Crisis Stabilization, Supportive Therapy, Group Therapy, Psychoeducational Therapy
[2018-10-10 09:56] VITALS: BP 119/76
[2018-10-10] MEDS: levETIRAcetam 250 MG TABLET PO SCH (10:06)
== END 2018-10-10 12:05 | disposition home or self-care (01) | DRG 753 ==
LOC: EMEROOARM 13:52 → 1ANU 15:43
PROVIDERS: ADMIT Psychiatry & Neurology Psychiatry; ATTEND Psychiatry & Neurology Psychiatry

== ENCOUNTER 2018-11-28 16:27 | Observation (INO) ==
[2018-11-28] MEDS ORDERED: *HR* LORazepam 2 MG/ML VIAL ONE ×2 (16:32→16:47)
[2018-11-28] MEDS ORDERED: Ziprasidone injection 20 MG/ML VIAL IM ONE ×2 (16:33→16:48)
[2018-11-28] MEDS ORDERED: *HR* LORazepam 2 MG/ML VIAL IM ONE ×2 (16:48→16:49)
[2018-11-28 17:02] LABS: Basophils # 0.1 K/mcL (0.0-0.2); Basophils % 0.5 %; Eosinophils # 0.1 K/mcL (0.0-0.6); Eosinophils % 0.5 %; Hematocrit 37.6 % (35.3-44.9); Hemoglobin 12.7 g/dL (11.5-15.4); Immature Granulocytes % 0.5 % (0-4); Lymphocytes # 2.4 K/mcL (0.6-4.6); Lymphocytes % 14.7 %; Mean Corpuscular HGB Conc 33.8 g/dL (31.6-35.5); Mean Corpuscular Hemoglobin 31.4 pg (28.0-33.3); Mean Corpuscular Volume 92.8 fL (83.0-100.0); Mean Platelet Volume 9.8 fL (9.4-12.4); Monocytes % 5.9 %; Neutrophils # 12.9 K/mcL (1.6-8.9); Platelet Count 371 K/mcL (140-400); Red Blood Count 4.05 M/mcL (3.82-4.97); Red Cell Distribution Width 12.7 % (11.5-14.5); Segmented Neutrophils % 77.9 %
[2018-11-28] MEDS ORDERED: 0.9 % Sodium Chloride 1,000 ML ONE (17:13)
[2018-11-28 17:23] LABS: Acetaminophen < 10 mcg/mL (10-20); BUN/Creatinine Ratio 19 (6-26); Blood Urea Nitrogen 27 mg/dL (6-20); Calcium 10.2 mg/dL (8.6-10.3); Carbon Dioxide 19 mEq/L (23-29); Chloride 106 mEq/L (98-107); Ethanol < 10 mg/dL (Less than 10); Glucose 137 mg/dL (70-105); Osmolality,Calculated 299 (280-300); Potassium 3.1 mEq/L (3.5-5.1); Salicylate < 2.5 mg/dL (15.0-30.0); Sodium 141 mEq/L (136-145); eGFR For Non-African Americans 38 (> 60)
[2018-11-28 17:29] LABS: Bilirubin,Urine Small (Negative); Blood,Urine Negative (Negative); Clarity,Urine Clear (Clear); Color,Urine Dark Yellow (Yellow); Glucose,Urine (UA) Normal (Normal); Ketones,Urine Trace mg/dL (Negative); Leukocyte Esterase,Urine Small (Negative); Nitrite,Urine Negative (Negative); PH,Urine 5.5 pH Units (5.0-8.0); Protein,Urine 30 mg/dL (Neg-Trace); Specific Gravity,Urine 1.023 (1.010-1.025); Urobilinogen,Urine Normal (Normal)
[2018-11-28 17:31] LABS: Bacteria,Urine None Seen per hpf (None-Few); Squamous Epithelial Cell,Urine Many per lpf (None-Few)
--- NOTE | 2018-11-28 17:32 | Emergency Department Note ---
Disposition Clinical Impression: Acute psychosis, Positive urine drug screen, Hypokalemia, MICHELE (acute kidney injury) Disposition: Admitted As Inpatient Condition: Undetermined Referrals: NONE,PCP [Primary Care Provider] - Forms: ED Satisfaction Letter Time of Disposition: 19:29 Psych HPI - General Chief Complaint: ED Psychiatric Symptoms Stated Complaint: psych Time Seen by Provider: 11/28/18 16:37 Source: EMS Mode of arrival: EMS Limitations: altered mental status Nursing Notes Reviewed: Yes Vital Signs Reviewed: Yes - History of Present Illness HPI Narrative: 53-year-old female with history of psychosis, methamphetamine abuse arrives to the emergency department with alteration in mentation, agitation, combativeness. Patient has a history of cerebral aneurysms as well as well. Patient denies any complaints at this time. She is very agitated upon arrival. Patient's son states that the patient has not been taking her medications and has been using and abusing methamphetamines. - Related Data Home Medications Medication Instructions Recorded Confirmed Donepezil [Aricept] 5 mg PO HS 05/09/18 10/07/18 Famotidine [Pepcid] 20 mg PO BID 05/09/18 10/07/18 Folic Acid 1 mg PO DAILY 05/09/18 10/07/18 LevETIRAcetam [Keppra] 500 mg PO Q12H 05/09/18 10/07/18 Levothyroxine [Synthroid] 100 mcg PO Q48H 05/09/18 10/07/18 Levothyroxine [Synthroid] 112 mcg PO Q48H 05/09/18 10/07/18 Lisinopril [Zestril] 5 mg PO DAILY 05/09/18 10/07/18 Melatonin [Melatin] 3 mg PO HS 05/09/18 10/07/18 Metoprolol [Lopressor] 12.5 mg PO BID 05/09/18 10/07/18 Pravastatin Sodium 10 mg PO QPM 05/09/18 10/07/18 Topiramate [Topamax] 25 mg PO BID 05/09/18 10/07/18 Gabapentin [Neurontin] 300 mg PO TID 10/07/18 10/07/18 Naproxen 500 mg PO BID 10/07/18 10/07/18 Rizatriptan Benzoate [Maxalt Director Diabetes] 10 mg SL DAILY PRN 10/07/18 10/07/18 traZODone [TraZODone] 75 mg PO HS 10/07/18 10/07/18 Previous Rx's Medication Instructions Recorded DULoxetine [Cymbalta] 90 mg PO DAILY #30 capsule. 10/10/18 Allergies Allergy/AdvReac Type Severity Reaction Status Date / Time Sulfa (Sulfonamide AdvReac Hives Verified 05/09/18 13:14 Antibiotics) Limitations: ROS unobtainable due to patients medical condition Past Medical History - Past Medical History Source: old records reviewed, obtained from family Medical history: Reports: arthritis, CVA, dementia, GERD, hyperlipidemia, hypertension, thyroid disease, other Surgical history: Reports: hysterectomy (Total), other (unknown brain surgery (clot removal vs. aneuysm repair)) Psychiatric history: Reports: anxiety, depression, prior suicide attempt - Social History Smoking Status: Current every day smoker Smokeless Tobacco Status: No Alcohol use: Reports: none Drug use: Reports: none, marijuana Physical Exam - General Limitations: altered mental status General appearance: alert, appears intoxicated - Head Head exam: atraumatic, normocephalic, normal inspection - Eye Eye exam: Present: normal appearance, PERRL, EOMI - ENT ENT exam: normal exam, normal oropharynx, mucous membranes moist - Neck Neck exam: Present: normal inspection, full ROM, trachea midline - Chest Chest inspection: Present: normal inspection, symmetric chest wall rise - Respiratory Respiratory exam: Absent: respiratory distress - Cardiovascular Cardiovascular exam: Present: tachycardia - Abdominal Exam Abdominal exam: Present: soft, Non-Tender - Extremities Exam Extremities exam: Present: normal inspection, full ROM. Absent: tenderness, pedal edema - Neurological Exam Neurological exam: Present: alert, CN II-XII intact - Expanded Neurological Exam Patient oriented to: Present: person Speech: Present: fluid speech Motor strength - LUE: 5/5 Motor strength - RUE: 5/5 Motor strength - LLE: 5/5 Motor strength - RLE: 5/5 Coma Scale Eye Opening: Spontaneous Coma Scale Motor Response: Obeys Commands Coma Scale Verbal Response: Confused Coma Scale Total: 14 - Psychiatric Psychiatric exam: Present: agitated, manic - Skin Skin exam: Present: warm, dry, intact, normal color Course Vital Signs Temperature 98.3 F 11/28/18 16:51 Pulse Rate 129 11/28/18 16:51 Respiratory Rate 18 11/28/18 16:51 Blood Pressure 127/93 11/28/18 16:51 O2 Sat by Pulse Oximetry 95 11/28/18 16:51 Temperature 0 F L 11/28/18 18:21 Pulse Rate 0 11/28/18 18:21 Respiratory Rate 0 11/28/18 18:21 Blood Pressure 0/0 11/28/18 18:21 O2 Sat by Pulse Oximetry 0 11/28/18 18:21 Oxygen Delivery Oxygen Delivery Room Air Psych - MDM Narrative Medical decision making narrative: Patient's evaluation in the emergency department demonstrates findings con cerning for acute psychosis. Patient is not been medically cleared at this time after the patient was sedated. She was found have an acute kidney injury as well as hypokalemia. The patient will be admitted to the hospitalist time after she required multiple doses of sedative medications. EKG was obtained. The patient went to unit reactor operator and pulse ox. The patient will be admitted to the hospitalist. Accepted by Dr. Elizabeth. - Lab Data Result diagrams: 11/28/18 16:51 11/28/18 16:51 Lab Results 11/28/18 11/28/18 11/28/18 Range/Units 16:51 16:51 17:15 WBC 16.6 H (4.3-11.1) K/mcL RBC 4.05 (3.82-4.97) M/mcL Hgb 12.7 (11.5-15.4) g/dL Hct 37.6 (35.3-44.9) % MCV 92.8 (83.0-100.0) fL MCH 31.4 (28.0-33.3) pg MCHC 33.8 (31.6-35.5) g/dL RDW 12.7 (11.5-14.5) % Plt Count 371 (140-400) K/mcL MPV 9.8 (9.4-12.4) fL Immature Gran % 0.5 (0-4) % Seg Neutrophils % 77.9 % Lymphocytes % 14.7 % Monocytes % 5.9 % Eosinophils % 0.5 % Basophils % 0.5 % Neutrophils # 12.9 H (1.6-8.9) K/mcL Lymphocytes # 2.4 (0.6-4.6) K/mcL Monocytes # 1.0 (0.0-1.3) K/mcL Eosinophils # 0.1 (0.0-0.6) K/mcL Basophils # 0.1 (0.0-0.2) K/mcL Sodium 141 (136-145) mEq/L Potassium 3.1 L (3.5-5.1) mEq/L Chloride 106 (98-107) mEq/L Carbon Dioxide 19 L (23-29) mEq/L BUN 27 H (6-20) mg/dL Creatinine 1.43 H (0.60-1.20) mg/dL Est GFR ( Amer) 47 L (> 60) Est GFR (Non-Af Amer) 38 L (> 60) BUN/Creatinine Ratio 19 (6-26) Glucose 137 H (70-105) mg/dL Calculated Osmolality 299 (280-300) Calcium 10.2 (8.6-10.3) mg/dL TSH 1.566 (0.340-5.600) mcIU/mL Urine Color Dark Yellow (Yellow) Urine Clarity Clear (Clear) Urine pH 5.5 (5.0-8.0) pH Units Ur Specific [place] 1.023 (1.010-1.025) Urine Protein 30 H (Neg-Trace) mg/dL Urine Glucose (UA) Normal (Normal) mg/dL Urine Ketones Trace H (Negative) mg/dL Urine Blood Negative (Negative) Urine Nitrite Negative (Negative) Urine Bilirubin Small H (Negative) Urine Urobilinogen Normal (Normal) mg/dL Ur Leukocyte Esterase Small H (Negative) Urine Microscopic RBC 5-15 H (0-3) per hpf Urine Microscopic WBC 5-15 H (0-3) per hpf Ur Squamous Epith Cells Many H (None-Few) per lpf Urine Bacteria None Seen (None-Few) per hpf Salicylates < 2.5 L (15.0-30.0) mg/dL Urine Opiates Screen (Rwvwnu=440) ng/mL Acetaminophen < 10 L (10-20) mcg/mL Ur Barbiturates Screen (Kcqiqx=924) ng/mL Ur Phencyclidine Scrn (Cutoff=25) ng/mL Ur Amphetamines Screen (Rxufje=4117) ng/mL U Benzodiazepines Scrn (Kjhidy=043) ng/mL Urine Cocaine Screen (Cutoff= 300) ng/mL U Marijuana (THC) Screen (Cutoff = 50) ng/mL Ur Drug Screen Interp Ethyl Alcohol < 10 (Less than 10) mg/dL 11/28/18 Range/Units 17:15 WBC (4.3-11.1) K/mcL RBC (3.82-4.97) M/mcL Hgb (11.5-15.4) g/dL Hct (35.3-44.9) % MCV (83.0-100.0) fL MCH (28.0-33.3) pg MCHC (31.6-35.5) g/dL RDW (11.5-14.5) % Plt Count (140-400) K/mcL MPV (9.4-12.4) fL Immature Gran % (0-4) % Seg Neutrophils % % Lymphocytes % % Monocytes % % Eosinophils % % Basophils % % Neutrophils # (1.6-8.9) K/mcL Lymphocytes # (0.6-4.6) K/mcL Monocytes # (0.0-1.3) K/mcL Eosinophils # (0.0-0.6) K/mcL Basophils # (0.0-0.2) K/mcL Sodium (136-145) mEq/L Potassium (3.5-5.1) mEq/L Chloride (98-107) mEq/L Carbon Dioxide (23-29) mEq/L BUN (6-20) mg/dL Creatinine (0.60-1.20) mg/dL Est GFR ( Amer) (> 60) Est GFR (Non-Af Amer) (> 60) BUN/Creatinine Ratio (6-26) Glucose (70-105) mg/dL Calculated Osmolality (280-300) Calcium (8.6-10.3) mg/dL TSH (0.340-5.600) mcIU/mL Urine Color (Yellow) Urine Clarity (Clear) Urine pH (5.0-8.0) pH Units Ur Specific [place] (1.010-1.025) Urine Protein (Neg-Trace) mg/dL Urine Glucose (UA) (Normal) mg/dL Urine Ketones (Negative) mg/dL Urine Blood (Negative) Urine Nitrite (Negative) Urine Bilirubin (Negative) Urine Urobilinogen (Normal) mg/dL Ur Leukocyte Esterase (Negative) Urine Microscopic RBC (0-3) per hpf Urine Microscopic WBC (0-3) per hpf Ur Squamous Epith Cells (None-Few) per lpf Urine Bacteria (None-Few) per hpf Salicylates (15.0-30.0) mg/dL Urine Opiates Screen Negative (Rwchut=484) ng/mL Acetaminophen (10-20) mcg/mL Ur Barbiturates Screen Negative (Xowcmk=492) ng/mL Ur Phencyclidine Scrn Negative (Cutoff=25) ng/mL Ur Amphetamines Screen Positive H (Ihdfjh=9186) ng/mL U Benzodiazepines Scrn Positive H (Ibsvpx=023) ng/mL Urine Cocaine Screen Negative (Cutoff= 300) ng/mL U Marijuana (THC) Screen Positive H (Cutoff = 50) ng/mL Ur Drug Screen Interp See Below Ethyl Alcohol (Less than 10) mg/dL - EKG Data EKG attestation: Yes I reviewed and interpreted this EKG. EKG results narrative: Heart rate 1 [address] bpm. Sinus tachycardia. No ST elevation or ST depression noted. QTC at 491. Psychiatric Medical Clearance - Medical Clearance Checklist Medical History: No Social History Section defined Current Vitals: Last Vital Signs Temp 0 F L 11/28/18 18:21 Pulse 0 11/28/18 18:21 Resp 0 11/28/18 18:21 BP 0/0 11/28/18 18:21 Pulse Ox 0 11/28/18 18:21 Psychiatric Lab Panel: Drug Levels and Toxicity 11/28/18 11/28/18 16:51 17:15 Urine Opiates Screen Negative Acetaminophen < 10 L Ur Barbiturates Screen Negative Ur Phencyclidine Scrn Negative Ur Amphetamines Screen Positive H U Benzodiazepines Scrn Positive H Urine Cocaine Screen Negative U Marijuana (THC) Screen Positive H Ethyl Alcohol < 10 Abnormal Labs: Abnormal lab results WBC 16.6 K/mcL (4.3-11.1) H 11/28/18 16:51 Neutrophils # 12.9 K/mcL (1.6-8.9) H 11/28/18 16:51 Potassium 3.1 mEq/L (3.5-5.1) L 11/28/18 16:51 Carbon Dioxide 19 mEq/L (23-29) L 11/28/18 16:51 BUN 27 mg/dL (6-20) H 11/28/18 16:51 Creatinine 1.43 mg/dL (0.60-1.20) H 11/28/18 16:51 Est GFR ( Amer) 47 (> 60) L 11/28/18 16:51 Est GFR (Non-Af Amer) 38 (> 60) L 11/28/18 16:51 Glucose 137 mg/dL (70-105) H 11/28/18 16:51 Urine Protein 30 mg/dL (Neg-Trace) H 11/28/18 17:15 Urine Ketones Trace mg/dL (Negative) H 11/28/18 17:15 Urine Bilirubin Small (Negative) H 11/28/18 17:15 Ur Leukocyte Esterase Small (Negative) H 11/28/18 17:15 Urine Microscopic RBC 5-15 per hpf (0-3) H 11/28/18 17:15 Urine Microscopic WBC 5-15 per hpf (0-3) H 11/28/18 17:15 Ur Squamous Epith Cells Many per lpf (None-Few) H 11/28/18 17:15 Salicylates < 2.5 mg/dL (15.0-30.0) L 11/28/18 16:51 Acetaminophen < 10 mcg/mL (10-20) L 11/28/18 16:51 Ur Amphetamines Screen Positive ng/mL (Nkihyc=9472) H 11/28/18 17:15 U Benzodiazepines Scrn Positive ng/mL (Yjdsok=542) H 11/28/18 17:15 U Marijuana (THC) Screen Positive ng/mL (Cutoff = 50) H 11/28/18 17:15 Statement of Medical Clearance: I have evaluated the patient, reviewed diagnostic information, and certify that the patient's medical condition is sufficiently stable that transfer to the psychiatric unit does not pose a significant risk of deterioration. Attestation Statement - Attestation Attestation: I, Markell Disla, examined this patient and my medical decision-making was reviewed with the LEARNING SERVICES COORDINATOR/PA/Advanced Practice Nurse/Resident Physician. I agree with the documented findings, disposition and treatment plan as described except to the extent set forth below. 53-year-old female presents emergency Department for evaluation of acute psychosis. Son states the patient disappeared for 3 days, has a history of polysubstance abuse. She has used methamphetamines in the past. Patient patient likely has acute delirium during evaluation emergency department. She is agitated and is oriented to self only. Patient is tachycardic. She was aggressive and violent towards staff. She was restrained and given Ativan and Geodon for the patient's safety and staff safety. Restraints are placed around 1645 and removed at 1705 when the patient had received medications. She was placed on a unit reactor operator, EKG did not show evidence of acute dysrhythmia other than tachycardia. QTC was not greater than 500. CT of the head did not show acute and rounded. Patient is now resting comfortably. She is given a liter of IV fluid for likely dehydration. Patient will be admitted to the hospitalist for further evaluation of her acute psychosis and acute kidney injury.
[2018-11-28 17:36] LABS: Thyroid Stimulating Hormone 1.566 mcIU/mL (0.340-5.600)
[2018-11-28 17:43] LABS: Amphetamine Screen,Urine Positive ng/mL (Cutoff=1000); Barbiturate Screen,Urine Negative ng/mL (Cutoff=200); Benzodiazepines Screen,Urine Positive ng/mL (Cutoff=200); Cannabinoid Screen,Urine Positive ng/mL (Cutoff = 50); Cocaine Screen,Urine Negative ng/mL (Cutoff= 300); Opiate Screen,Urine Negative ng/mL (Cutoff=300); Phencyclidine Screen,Urine Negative ng/mL (Cutoff=25)
[2018-11-28] MEDS ORDERED: Naloxone 0.4 MG/ML INJ IVP PRN ×2 (20:42)
[2018-11-28] MEDS ORDERED: Acetaminophen 325 MG TABLET PO PRN (20:42)
[2018-11-28] MEDS ORDERED: 0.9 % Sodium Chloride 1,000 ML IVC SCH (20:45)
[2018-11-28] MEDS ORDERED: Haloperidol Lactate 5 MG/ML VIAL IVP PRN (21:06)
--- NOTE | 2018-11-28 22:00 | Internal Med History&Physical ---
Date of Encounter: 11/28/18 Time of Encounter: 20:00 Internal Medicine - H&P: HPI Chief complaint: AMS/Psychiatric issues Admitted From: Emergency Dept Plans for Post Hospital Care: Home History of present illness: Ms. 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 Patient's son reports patient has been abusing methamphetamine and has not been taking her prescriptions. Patient had previous hospital admission in early May 2018 for similar symptoms with drug overdose. Urine tox screen positive for amphetamines, benzodiazepines, and marijuana. Patient's son denies recent illness, fever, chills, nausea, vomiting, chest pain, shortness of breath, unusual bleeding, abdominal pain, diarrhea, constipation, dizziness, lightheadedness, numbness, tingling, presyncope, or syncope. Past Med Surg Social Fam HX - Past Medical History Source: old records reviewed Medical history: arthritis, CVA, dementia, GERD, hyperlipidemia, hypertension, thyroid disease, other Additional medical history: x2 brain surgeries from aneursym Psychiatric history: anxiety, depression, prior suicide attempt, previous p sychiatric hospitalization - Past Surgical History Surgical History: hysterectomy (Total), other (unknown brain surgery (clot removal vs. aneuysm repair)) Additional surgical history: BRAIN SURGERY X 4, FACIAL SURGERY - Social History Smoking Status: Current every day smoker Packs per day: 1 PPD Smokeless Tobacco Status: No Alcohol use: none Drug use: marijuana, other (Meth) Current living situation: Home - Independent Activity Level: Independent ambulation Recent Out of Country Travel Within the Last 8 Weeks: No Exposure or Possible Exposure to Illness During Travel: No - Family History Father Adopted: No ([facility]) Mother Adopted: No ([employer]) Brother Adopted: No ([employer]) Sister Adopted: No ([employer]) Son Family Member Ethnicity: Non- Living Status: Internal Medicine - H&P: Meds Donepezil [Aricept] 5 mg PO HS 05/09/18 [History] Famotidine [Pepcid] 20 mg PO BID 05/09/18 [History] Folic Acid 1 mg PO DAILY 05/09/18 [History] LevETIRAcetam [Keppra] 500 mg PO Q12H 05/09/18 [History] Levothyroxine [Synthroid] 100 mcg PO Q48H 05/09/18 [History] Levothyroxine [Synthroid] 112 mcg PO Q48H 05/09/18 [History] Lisinopril [Zestril] 5 mg PO DAILY 05/09/18 [History] Melatonin [Melatin] 3 mg PO HS 05/09/18 [History] Metoprolol [Lopressor] 12.5 mg PO BID 05/09/18 [History] Pravastatin Sodium 10 mg PO QPM 05/09/18 [History] Topiramate [Topamax] 25 mg PO BID 05/09/18 [History] Gabapentin [Neurontin] 300 mg PO TID 10/07/18 [History] Naproxen 500 mg PO BID 10/07/18 [History] Rizatriptan Benzoate [Maxalt Senior [employer]] 10 mg SL DAILY PRN 10/07/18 [History] traZODone [TraZODone] 75 mg PO HS 10/07/18 [History] DULoxetine [Cymbalta] 90 mg PO DAILY #30 capsule. 10/10/18 [Rx] Allergy/AdvReac Type Severity Reaction Status Date / Time Sulfa (Sulfonamide AdvReac Hives Verified 05/09/18 13:14 Antibiotics) ROS unobtainable: due to mental status All Systems PM: A 10-system review of systems was performed and is negative for pertinent findings except as documented above in the HPI. Review of systems: D/t violent and aggressive behavior on admission to ED, pt. was given Ativan and Geodon to help calm her down. Pt. somnolent when I went to see her in the ED and unable to provide any information. Pts. son not present at this time. This is the same behavior I noted when I admitted her in early May 2018. - Constitutional Vitals: Temp Pulse Resp BP Pulse Ox 98.1 F 93 12 124/79 100 11/28/18 21:50 11/28/18 21:50 11/28/18 21:50 11/28/18 21:50 11/28/18 21:50 General appearance: Present: A&O X 0 Exam: Patient examined at bedside. Unable to get hx or medical info from PRABHJOT d/t aaron smith. I had admitted this pt. in 05/2018 for similar sx so I am familiar w/her hx otherwise. VS: 98.1F temp, HR 93, RR 12, BP 124/79, SPO2 100% on room air. - Head Head exam: Present: atraumatic, normocephalic - Eye Eye exam: Present: PERRL, conjuntiva pink, sclera anicteric Pupils: Present: PERRL - ENT ENT exam: Present: normal exam - Neck Neck exam general surgery: Present: normal inspection - Respiratory Respiratory exam: Present: CTAB. Absent: accessory muscle use, rales, rhonchi, wheezes - Cardiovascular Cardiovascular exam: Present: +S1, +S2, tachycardia. Absent: diastolic murmur, gallop, rubs, systolic murmur - GI/Abdominal GI/Abdominal exam: Present: normal bowel sounds - Rectal Rectal exam: Present: deferred - Additional comments: exam deferred. - Extremities Exam Extremities exam: Present: warm, radial pulses palpable and symmetrical. Absent: calf tenderness, cyanotic, pedal edema - Back Exam Back exam: Present: normal inspection - Neurological Exam Neurological exam: Present: altered - Skin Skin exam: Present: dry, intact Internal Med - H&P Results - Labs CBC & Chem 7: 11/28/18 16:51 11/28/18 16:51 Labs: Short CBC 11/28/18 Range/Units 16:51 WBC 16.6 H (4.3-11.1) K/mcL Hgb 12.7 (11.5-15.4) g/dL Hct 37.6 (35.3-44.9) % Plt Count 371 (140-400) K/mcL Neutrophils # 12.9 H (1.6-8.9) K/mcL BMP 11/28/18 16:51 Sodium 141 Potassium 3.1 L Chloride 106 Carbon Dioxide 19 L BUN 27 H Creatinine 1.43 H Glucose 137 H Calcium 10.2 Urine 11/28/18 Range/Units 17:15 Urine Color Dark Yellow (Yellow) Urine Clarity Clear (Clear) Urine pH 5.5 (5.0-8.0) pH Units Ur Specific [place] 1.023 (1.010-1.025) Urine Protein 30 H (Neg-Trace) mg/dL Urine Glucose (UA) Normal (Normal) mg/dL - Impressions ITS Impressions Head CT 11/28/18 16:49 IMPRESSION: No acute intracranial abnormality. Chronic encephalomalacia identified left MCA distribution Aneurysm clip and embolization coil packs and pipeline / stents identified Mottled appearance of the left frontal parietal temporal craniotomy flap. D/ / Primo Goodman / Primo Goodman Interpreting Provider: Primo Goodman - Diagnostic Studies CT scan - head Additional comments: Impressions Head CT 11/28/18 16:49 IMPRESSION: No acute intracranial abnormality. Chronic encephalomalacia identified left MCA distribution Aneurysm clip and embolization coil packs and pipeline / stents identified Mottled appearance of the left frontal parietal temporal craniotomy flap. D/ / Primo Goodman / Primo Goodman Interpreting Provider: Primo Goodman - Assessment and Plan (1) Altered mental status Current Visit: Yes Status: Acute Assessment and plan: Acute altered mental status accompanied by aggressive/violent behavior. Patient has history of OD, psychiatric issues, previous suicide attempts, and previous psychiatric hospitalizations. Patient's son reports patient has been abusing methamphetamine and has not been taking her prescriptions. Patient had previous hospital admission in early May 2018 for similar symptoms with drug overdose. Urine tox screen positive for amphetamines, benzodiazepines, and marijuana. 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 Patient also has history of intracranial aneurysm with clipping 3 [address] ago [address] [facility] Head CT today without contrast shows no acute intracranial abnormality. Chronic encephalomalacia identified left MCA distribution. Aneurysm clip and embolization coil packs and pipeline/stents identified. Mottled appearance of the left frontal parietal temporal craniotomy flap. Due to violent/aggressive behavior in ED, patient received Ativan and Geodon to help calm her. Patient somnolent on exam. Due to history of seizures, seizure precautions and IVPB Keppra 500 mg twice a day ordered. Patient is high risk for further morbidity and complications due to current positive urine tox screen for methadone, benzodiazepines, and marijuana. Patient is also high risk due to previous suicidal ideations requiring psychiatric hospitalizations, history, and health risk factors: HLD, HTN, thyroid disease, seizures, previous CVA, previous intracranial aneurysm requiring clipping, anxiety, and depression. Observation. Qualifiers: Altered mental status type: somnolence Qualified Code(s): R40.0 - Somnolence (2) MICHELE (acute kidney injury) Current Visit: Yes Status: Acute Assessment and plan: AK I with GFR 38 and creatinine 1.43 on admission. 0.9 IV fluids at 75 MLS per hour ordered. Strict I&O and daily weight. Parker catheter placed due to immobility for current symptoms and altered mental status. Monitor follow-up labs. Avoid nephrotoxins. (3) Hypokalemia Current Visit: Yes Status: Acute Assessment and plan: Acute hyperkalemia on admission with potassium of 3.1. 20 mEq K rider with lidocaine ordered. Monitor patient's follow-up labs. (4) Positive urine drug screen Current Visit: Yes Status: Acute Assessment and plan: Acutely positive urine drug screen for amphetamines, benzodiazepines, and marijuana. Patient's son states she has been abusing meth and not taking her psychiatric medications. To milligram IVP lorazepam every 6 hours when necessary for anxiety. Haloperidol 1 mg IVP every 6 hours when necessary for aggressive/agitated behavior. Sitter ordered. Falls/safety precautions and up with assist only when mentation improves. Aspiration precautions. Dysphagia screen. Patient nothing by mouth for now until mentation improves and dysphagia screen passed. Holding patient's pain medications for now. (5) HLD (hyperlipidemia) Current Visit: Yes Status: Chronic Assessment and plan: Hx of chronic HLD. Lipid panel in a.m. labs. Hold patient's by mouth pravastatin until patient's mentation improves and passes dysphagia screen. Qualifiers: Hyperlipidemia type: pure hypercholesterolemia Qualified Code(s): E78.00 - Pure hypercholesterolemia, unspecified; E78.0 - Pure hypercholesterolemia (6) HTN (hypertension) Current Visit: Yes Status: Chronic Assessment and plan: Hx of chronic HTN. Monitor patient vital signs. Hold patient's by mouth metoprolol and administer 10 mg IVP hydralazine when necessary with parameters as needed. Qualifiers: Hypertension type: essential hypertension Qualified Code(s): I10 - Essential (primary) hypertension (7) History of seizures Current Visit: Yes Status: Chronic Assessment and plan: Hx of seizures. Hold patient's current by mouth Keppra and administer IVPB Keppra at same dosing at 500 mg twice a day. Monitor patient for seizure activity due to possible withdrawal. Padding to bedrails and seizure precautions. (8) Major depressive disorder, recurrent episode with anxious distress Current Visit: Yes Status: Chronic Assessment and plan: Hx of major depressive disorder with recurrent episodes of anxious distress. We will continue patient's psychiatric medications when patient's mentation improves and patient passes dysphagia screen. Psychiatric consult ordered and discussed with 1A. (9) Thyroid disease Current Visit: Yes Status: Chronic Assessment and plan: Hx of chronic HLD. Lipid panel in a.m. labs. Hold patient's by mouth Synthroid until patient is no longer altered and passes dysphagia screen. TSH ordered. 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 Falls/safety precautions and up with assist only. PT/OT consults ordered. (11) DVT prophylaxis Current Visit: Yes Status: Acute Assessment and plan: Bilateral SCDs on LEs for DVT prophylaxis. - Time Spent With Patient Total time spent is greater than 50% in coordination of care (as documented) at patient's floor/unit and/or counseling patient: Greater than 35 minutes
[2018-11-28] MEDS ORDERED: Potassium Chloride 20 MEQ, Lidocaine 1% 2 ML in D5% in Water 250 ML IVPB ONE (22:38)
[2018-11-28 23:49] LABS: Troponin I 0.06 ng/mL (< 0.04)
[2018-11-29] MEDS: *HR* Promethazine 25 MG/ML VIAL IVP PRN (06:04)
[2018-11-29 06:46] LABS: Hemoglobin 11.5 g/dL (11.5-15.4); INR 1.1; Mean Corpuscular HGB Conc 33.8 g/dL (31.6-35.5); Mean Corpuscular Hemoglobin 31.6 pg (28.0-33.3); Mean Corpuscular Volume 93.4 fL (83.0-100.0); Mean Platelet Volume 10.6 fL (9.4-12.4); Platelet Count 315 K/mcL (140-400); Prothrombin Time 11.9 Seconds (9.4-12.1); Red Blood Count 3.64 M/mcL (3.82-4.97); Red Cell Distribution Width 12.9 % (11.5-14.5)
[2018-11-29 06:49] LABS: Activated Partial Thrombo Time 25.9 Seconds (26.0-36.0)
[2018-11-29 07:04] LABS: Albumin 3.9 g/dL (3.5-5.7); Albumin/Globulin Ratio 1.4 (1.1-2.2); Bilirubin,Direct 0.1 mg/dL (0.0-0.2); Bilirubin,Indirect 0.5 mg/dL (0.0-1.2); Bilirubin,Total 0.6 mg/dL (0.3-1.0); Globulin 2.8 g/dL (2.4-3.5); Total Protein 6.7 g/dL (6.4-8.9)
[2018-11-29 07:06] LABS: BUN/Creatinine Ratio 26 (6-26); Blood Urea Nitrogen 22 mg/dL (6-20); Calcium 9.4 mg/dL (8.6-10.3); Carbon Dioxide 21 mEq/L (23-29); Chloride 107 mEq/L (98-107); Chol/HDL Ratio 2.5 (0-4.9); Cholesterol 130 mg/dL (< 200); Glucose 100 mg/dL (70-105); HDL Cholesterol 52 mg/dL (40-59); LDL Cholesterol,Calculated 66 mg/dL (0-99); Magnesium 1.5 mg/dL (1.6-2.6); Osmolality,Calculated 295 (280-300); Phosphorous 2.1 mg/dL (2.7-4.5); Potassium 2.8 mEq/L (3.5-5.1); Sodium 141 mEq/L (136-145); Triglycerides 61 mg/dL (< 150); eGFR For Non-African Americans > 60 (> 60)
[2018-11-29 07:51] LABS: Hepatitis B Surface Antigen Nonreactive (Nonreactive)
[2018-11-29 08:20] LABS: Hepatitis C Virus Antibody Nonreactive (Nonreactive)
[2018-11-29 08:21] LABS: Hepatitis A Antibody IgM Nonreactive (Nonreactive); Hepatitis B Core IgM Nonreactive (Nonreactive)
[2018-11-29] MEDS: *HR* LORazepam 2 MG/ML VIAL IVP PRN ×2 (08:34→17:10)
[2018-11-29] MEDS: Topiramate 25 MG TABLET PO SCH ×2 (09:16→19:46)
[2018-11-29] MEDS: Ringers Solution, Lactated 1,000 ML IVC SCH ×2 (09:17→22:43)
--- NOTE | 2018-11-29 09:30 | Consult Note ---
Date of Encounter: 11/29/18 Time of Encounter: 09:24 Assessment & Recommendation (1) Altered mental status Current visit: Yes Status: Acute Assessment & Recommendation: Suspect current presentation is due to substance use. Already much improved over yesterday. She still has confusion with rambling speech and emotional lability. However, she is now oriented to person, place, and time and she is no longer aggressive. Denies drug use but has meth, benzos, and THC in her system and her son reports she has been abusing drugs. Will likely continue to improve as drugs leave her system. Can use Haldol 2-5mg q6hr prn if needed for agitation but she seems to be calming. Client denies SI or that drug use was a suicide attempt. Do not think she meets criteria for inpatient mental health treatment at this time. She should continue to follow up with her outpatient provider. Would recommend a social work case manager consult to provide her with referrals for AOD treatment. If discharged soon would recommend she stay with son or have son stay with her as she still needs time to clear. Qualifiers: Altered mental status type: somnolence Qualified Code(s): R40.0 - Somnol ence History of Present Illness Requesting Physician: Julian Baires MD History of present illness: Ms. Cee is a 53 year old female who was brought in with mental status changes and aggressive behaviors. Tox screen positive for meth, benzos, and THC. Has a history of mental health diagnoses and hospitalizations but current presentation more consistent with substance induced psychosis. According to records her son told staff client has been off her prescription meds and abusing drugs. On eval today client is still confused and rambling but she is improved over yesterday. She knows the date and where she is. She was able to say she is not suicidal and that she did not make a suicide attempt. No longer aggressive. Spoke with nurse and sitter who report she is getting better. Emotionally labile but she is still coming down from all of the drugs in her system. Not able to get much history from her and son/family not at bedside to provide collateral. CC: Julian Baires MD Past Med Surg Social Fam HX - Past Medical History Medical history: arthritis, CVA, dementia, GERD, hyperlipidemia, hypertension, thyroid disease, other - Past Psychiatric History Psychiatric history: Reports: depression, previous psychiatric hospitalization Family psychiatric history: Unknown Family History of Suicide: Unknown - Past Surgical History Surgical History: hysterectomy (Total), other (unknown brain surgery (clot removal vs. aneuysm repair)) - Social History Smoking Status: Current every day smoker Smokeless Tobacco Status: No Alcohol use: none Drug use: marijuana, other (Meth) - Family History Father Adopted: No ([facility]) Mother Adopted: No ([employer]) Brother Adopted: No ([employer]) Sister Adopted: No ([employer]) Son Family Member Ethnicity: Non- Living Status: Medications & Allergies Donepezil [Aricept] 5 mg PO HS 05/09/18 [History] Famotidine [Pepcid] 20 mg PO BID 05/09/18 [History] Folic Acid 1 mg PO DAILY 05/09/18 [History] LevETIRAcetam [Keppra] 500 mg PO Q12H 05/09/18 [History] Levothyroxine [Synthroid] 100 mcg PO Q48H 05/09/18 [History] Levothyroxine [Synthroid] 112 mcg PO Q48H 05/09/18 [History] Lisinopril [Zestril] 5 mg PO DAILY 05/09/18 [History] Melatonin [Melatin] 3 mg PO HS 05/09/18 [History] Metoprolol [Lopressor] 12.5 mg PO BID 05/09/18 [History] Pravastatin Sodium 10 mg PO QPM 05/09/18 [History] Topiramate [Topamax] 25 mg PO BID 05/09/18 [History] Gabapentin [Neurontin] 300 mg PO TID 10/07/18 [History] Naproxen 500 mg PO BID 10/07/18 [History] Rizatriptan Benzoate [Maxalt [employer]] 10 mg SL DAILY PRN 10/07/18 [History] traZODone [TraZODone] 75 mg PO HS 10/07/18 [History] DULoxetine [Cymbalta] 90 mg PO DAILY #30 capsule. 10/10/18 [Rx] Allergy/AdvReac Type Severity Reaction Status Date / Time Sulfa (Sulfonamide AdvReac Hives Verified 05/09/18 13:14 Antibiotics) Review of Systems Constitutional: Denies: fever, chills, weakness, weight change Eyes: Denies: eye pain, vision change Ears, Nose, Throat: Denies: ear pain, throat pain, dental pain, hearing loss, congestion Cardiovascular: Denies: chest pain, palpitations, dyspnea on exertion Respiratory: Denies: cough, dyspnea, wheezes Gastrointestinal: Denies: abdominal pain, nausea, vomiting, diarrhea, constipation Genitourinary female: Denies: urgency, dysuria, frequency, abnormal menses, dyspareunia Musculoskeletal: Denies: joint swelling, joint pain Integumentary: Reports: other Neurological: Reports: confusion Endocrine: Denies: fatigue, heat or cold intolerance Hematologic/Lymphatic: Denies: easy bruising, lymphadenopathy Allergic/Immunologic: Denies: urticaria, itchy eyes Psychiatry Exam - Constitutional Vitals: Temp Pulse Resp BP Pulse Ox 98.5 F 81 18 162/98 96 11/29/18 07:17 11/29/18 07:17 11/29/18 07:17 11/29/18 07:17 11/29/18 07:17 General appearance: disheveled - Musculoskeletal Gait: other Station: relaxed Strength & Tone: normal for patient - Psychiatric Patient Orientation: Yes Person, Yes Time, Yes Place Level of alertness: Alert Behavior: calm, cooperative Psychomotor activity: Normal Eye Contact: Maintains Eye Contact Mood Description: Irritable Affect description: congruent with mood Speech Volume: Normal Speech pattern: rambling Language & Vocabulary: consistent with education Thought Process: Tangential Thought Content: No Suicidal ideation, No Homicidal ideation, No Overt delusions Perceptual Disturbances: No Auditory hallucinations, No Visual hallucinations Attention Span Ability: Capable of Focused Attention Memory Description: Immediate Intact, Recent Impaired, Remote Intact Patient Reliability: Not Reliable Historian Fund of knowledge: Yes abstraction ability, Yes aware of current events Intelligence Estimate: Average Judgment: Poor Insight: Minimal Results - Drug Levels and Toxicology Drug Levels and Toxicology: Drug Levels and Toxicity 11/28/18 11/28/18 16:51 17:15 Urine Opiates Screen Negative Acetaminophen < 10 L Ur Barbiturates Screen Negative Ur Phencyclidine Scrn Negative Ur Amphetamines Screen Positive H U Benzodiazepines Scrn Positive H Urine Cocaine Screen Negative U Marijuana (THC) Screen Positive H Ethyl Alcohol < 10 - Labs Labs: Laboratory Last Values WBC 13.7 K/mcL (4.3-11.1) H 11/29/18 03:48 RBC 3.64 M/mcL (3.82-4.97) L 11/29/18 03:48 Hgb 11.5 g/dL (11.5-15.4) 11/29/18 03:48 Hct 34.0 % (35.3-44.9) L 11/29/18 03:48 MCV 93.4 fL (83.0-100.0) 11/29/18 03:48 MCH 31.6 pg (28.0-33.3) 11/29/18 03:48 MCHC 33.8 g/dL (31.6-35.5) 11/29/18 03:48 RDW 12.9 % (11.5-14.5) 11/29/18 03:48 Plt Count 315 K/mcL (140-400) 11/29/18 03:48 MPV 10.6 fL (9.4-12.4) 11/29/18 03:48 Immature Gran % 0.5 % (0-4) 11/28/18 16:51 Seg Neutrophils % 77.9 % 11/28/18 16:51 Lymphocytes % 14.7 % 11/28/18 16:51 Monocytes % 5.9 % 11/28/18 16:51 Eosinophils % 0.5 % 11/28/18 16:51 Basophils % 0.5 % 11/28/18 16:51 Neutrophils # 12.9 K/mcL (1.6-8.9) H 11/28/18 16:51 Lymphocytes # 2.4 K/mcL (0.6-4.6) 11/28/18 16:51 Monocytes # 1.0 K/mcL (0.0-1.3) 11/28/18 16:51 Eosinophils # 0.1 K/mcL (0.0-0.6) 11/28/18 16:51 Basophils # 0.1 K/mcL (0.0-0.2) 11/28/18 16:51 PT 11.9 Seconds (9.4-12.1) 11/29/18 03:48 INR 1.1 11/29/18 03:48 APTT 25.9 Seconds (26.0-36.0) L 11/29/18 03:48 Sodium 141 mEq/L (136-145) 11/29/18 03:48 Potassium 2.8 mEq/L (3.5-5.1) L 11/29/18 03:48 Chloride 107 mEq/L (98-107) 11/29/18 03:48 Carbon Dioxide 21 mEq/L (23-29) L 11/29/18 03:48 BUN 22 mg/dL (6-20) H 11/29/18 03:48 Creatinine 0.86 mg/dL (0.60-1.20) 11/29/18 03:48 Est GFR ( Amer) > 60 (> 60) 11/29/18 03:48 Est GFR (Non-Af Amer) > 60 (> 60) 11/29/18 03:48 BUN/Creatinine Ratio 26 (6-26) 11/29/18 03:48 Glucose 100 mg/dL (70-105) 11/29/18 03:48 Calculated Osmolality 295 (280-300) 11/29/18 03:48 Calcium 9.4 mg/dL (8.6-10.3) 11/29/18 03:48 Phosphorus 2.1 mg/dL (2.7-4.5) L 11/29/18 03:48 Magnesium 1.5 mg/dL (1.6-2.6) L 11/29/18 03:48 Total Bilirubin 0.6 mg/dL (0.3-1.0) 11/29/18 03:48 Direct Bilirubin 0.1 mg/dL (0.0-0.2) 11/29/18 03:48 Indirect Bilirubin 0.5 mg/dL (0.0-1.2) 11/29/18 03:48 AST 26 Units/L (13-39) 11/29/18 03:48 ALT 17 Units/L (7-52) 11/29/18 03:48 Alkaline Phosphatase 48 Units/L (34-104) 11/29/18 03:48 Troponin I 0.04 ng/mL (< 0.04) H* 11/29/18 03:48 Serum Total Protein 6.7 g/dL (6.4-8.9) 11/29/18 03:48 Albumin 3.9 g/dL (3.5-5.7) 11/29/18 03:48 Globulin 2.8 g/dL (2.4-3.5) 11/29/18 03:48 Albumin/Globulin Ratio 1.4 (1.1-2.2) 11/29/18 03:48 Triglycerides 61 mg/dL (< 150) 11/29/18 03:48 Cholesterol 130 mg/dL (< 200) 11/29/18 03:48 LDL Cholesterol, Calc 66 mg/dL (0-99) 11/29/18 03:48 VLDL Cholesterol, Calc 12 mg/dL (< 31) 11/29/18 03:48 HDL Cholesterol 52 mg/dL (40-59) 11/29/18 03:48 Cholesterol/HDL Ratio 2.5 (0-4.9) 11/29/18 03:48 TSH 1.566 mcIU/mL (0.340-5.600) 11/28/18 16:51 Urine Color Dark Yellow (Yellow) 11/28/18 17:15 Urine Clarity Clear (Clear) 11/28/18 17:15 Urine pH 5.5 pH Units (5.0-8.0) 11/28/18 17:15 Ur Specific [place] 1.023 (1.010-1.025) 11/28/18 17:15 Urine Protein 30 mg/dL (Neg-Trace) H 11/28/18 17:15 Urine Glucose (UA) Normal mg/dL (Normal) 11/28/18 17:15 Urine Ketones Trace mg/dL (Negative) H 11/28/18 17:15 Urine Blood Negative (Negative) 11/28/18 17:15 Urine Nitrite Negative (Negative) 11/28/18 17:15 Urine Bilirubin Small (Negative) H 11/28/18 17:15 Urine Urobilinogen Normal mg/dL (Normal) 11/28/18 17:15 Ur Leukocyte Esterase Small (Negative) H 11/28/18 17:15 Urine Microscopic RBC 5-15 per hpf (0-3) H 11/28/18 17:15 Urine Microscopic WBC 5-15 per hpf (0-3) H 11/28/18 17:15 Ur Squamous Epith Cells Many per lpf (None-Few) H 11/28/18 17:15 Urine Bacteria None Seen per hpf (None-Few) 11/28/18 17:15 Salicylates < 2.5 mg/dL (15.0-30.0) L 11/28/18 16:51 Urine Opiates Screen Negative ng/mL (Ngdjvt=567) 11/28/18 17:15 Acetaminophen < 10 mcg/mL (10-20) L 11/28/18 16:51 Ur Barbiturates Screen Negative ng/mL (Vuadck=894) 11/28/18 17:15 Ur Phencyclidine Scrn Negative ng/mL (Cutoff=25) 11/28/18 17:15 Ur Amphetamines Screen Positive ng/mL (Bsdzfb=0898) H 11/28/18 17:15 U Benzodiazepines Scrn Positive ng/mL (Pcvxsm=425) H 11/28/18 17:15 Urine Cocaine Screen Negative ng/mL (Cutoff= 300) 11/28/18 17:15 U Marijuana (THC) Screen Positive ng/mL (Cutoff = 50) H 11/28/18 17:15 Ur Drug Screen Interp See Below 11/28/18 17:15 Ethyl Alcohol < 10 mg/dL (Less than 10) 11/28/18 16:51 Hepatitis A IgM Ab Nonreactive (Nonreactive) 11/29/18 03:48 Hep Bs Antigen Nonreactive (Nonreactive) 11/29/18 03:48 Hep B Core IgM Ab Nonreactive (Nonreactive) 11/29/18 03:48 Hepatitis C Ab Screen Nonreactive (Nonreactive) 11/29/18 03:48 - Impressions Impressions Head CT 11/28/18 16:49 IMPRESSION: No acute intracranial abnormality. Chronic encephalomalacia identified left MCA distribution Aneurysm clip and embolization coil packs and pipeline / stents identified Mottled appearance of the left frontal parietal temporal craniotomy flap. D/ / Primo Goodman / Primo Goodman Interpreting Provider: Primo Goodman Consult Discharge Plan - Plan Referrals: NONE,PCP [Primary Care Provider] -
--- NOTE | 2018-11-29 11:51 | Internal Med Progress Note ---
Hospitalist Progress Note - Encounter Date of Encounter: 11/29/18 Time of Encounter: 11:49 - Subjective Interval History: I have seen and evaluated the patient at bedside. patient very emotional, expressed she wants to go home. denies chest pain, nausea, vomiting or shortness of breath. - Exam Vitals: Temp Pulse Resp BP Pulse Ox 98.2 F 64 16 161/90 95 11/29/18 11:21 11/29/18 11:21 11/29/18 11:21 11/29/18 11:21 11/29/18 11:21 Exam: Vitals: Reviewed General: Alert and oriented x4. Agitated, emotional Skin: Normal color, no rash, no lesions. HEENT: Dry mucus membrane, EOM, pupils equal, round and reactive. Cardiovascular: RRR, normal S1 & S2, no rubs, murmurs or gallops. Lungs: CTA b/l, no wheezes or crackles. Abdomen: Soft, non-tender, no rigidity. Extremities: No deformity, no edema or tenderness, no joint swelling or clubbing. Neurological: No focal neurological deficits. Rest of the physical exam is non contributory - Assessment and Plan (1) Hypokalemia Current Visit: Yes Status: Acute Assessment and Plan: electrolyte being replaced. will re-assess potassium level 1 hour following replacement. will check magnesium level. (2) Altered mental status Current Visit: Yes Status: Acute Assessment and Plan: mental status continues to improve. patient AOx4 now, but very emotional. continue 1:1 sitter (3) HLD (hyperlipidemia) Current Visit: Yes Status: Chronic Assessment and Plan: patient on simvastatin 10mg/PO daily (4) HTN (hypertension) Current Visit: Yes Status: Chronic Assessment and Plan: Blood pressure is controlled. On metoprolol 12.5 mg by mouth twice a day. (5) History of seizures Current Visit: Yes Status: Chronic Assessment and Plan: Patient is on Keppra 500 mg IV twice a day and topiramate 25 mg by mouth twice a day. (6) Thyroid disease Current Visit: Yes Status: Chronic Assessment and Plan: Continue levothyroxine 112 mcg/PO Q48HRs (7) Positive urine drug screen Current Visit: Yes Status: Acute Assessment and Plan: multiple drugs positive on drug screen. psychiatry has been consulted. recommendations appreciated. (8) Major depressive disorder, recurrent episode with anxious distress Current Visit: Yes Status: Chronic Assessment and Plan: patient is on Duloxetine 90mg/PO daily (9) MICHELE (acute kidney injury) Current Visit: Yes Status: Resolved Assessment and Plan: associated with mild dehydration. continue IV fluids to complete 2 litters of LR. On LR @ 75ml/hr (10) History of CVA (cerebrovascular accident) Current Visit: Yes Status: Chronic DVT Prophylaxis: Heparin subQ added - Summary of Assessment and Plan Summary of Assessment and Plan: patient to remain in the hospital due to AMS, improving. Potential discharge tomorrow. - Time Spent with Patient Total time spent is greater than 50% in coordination of care (as documented) at patient's floor/unit and/or counseling patient: Greater than 35 minutes (40) Plan of Care Discussed with: patient (and the nurse.) Internal Medicine: Result - Labs CBC & Chem 7: 11/29/18 03:48 11/29/18 03:48 Labs: Short CBC 11/28/18 11/29/18 Range/Units 16:51 03:48 WBC 16.6 H 13.7 H (4.3-11.1) K/mcL Hgb 12.7 11.5 (11.5-15.4) g/dL Hct 37.6 34.0 L (35.3-44.9) % Plt Count 371 315 (140-400) K/mcL Neutrophils # 12.9 H (1.6-8.9) K/mcL BMP 11/28/18 11/29/18 16:51 03:48 Sodium 141 141 Potassium 3.1 L 2.8 L Chloride 106 107 Carbon Dioxide 19 L 21 L BUN 27 H 22 H Creatinine 1.43 H 0.86 Glucose 137 H 100 Calcium 10.2 9.4 Cardiac Enzymes 11/28/18 11/29/18 Range/Units 16:51 03:48 Troponin I 0.06 H* 0.04 H* (< 0.04) ng/mL Liver Function 11/29/18 Range/Units 03:48 Total Bilirubin 0.6 (0.3-1.0) mg/dL Direct Bilirubin 0.1 (0.0-0.2) mg/dL AST 26 (13-39) Units/L ALT 17 (7-52) Units/L Alkaline Phosphatase 48 (34-104) Units/L Albumin 3.9 (3.5-5.7) g/dL Urine 11/28/18 Range/Units 17:15 Urine Color Dark Yellow (Yellow) Urine Clarity Clear (Clear) Urine pH 5.5 (5.0-8.0) pH Units Ur Specific Effie 1.023 (1.010-1.025) Urine Protein 30 H (Neg-Trace) mg/dL Urine Glucose (UA) Normal (Normal) mg/dL - ABG Interpretation ABG results: PT/INR, D-dimer PT 11.9 Seconds (9.4-12.1) 11/29/18 03:48 - Impressions Impressions Head CT 11/28/18 16:49 IMPRESSION: No acute intracranial abnormality. Chronic encephalomalacia identified left MCA distribution Aneurysm clip and embolization coil packs and pipeline / stents identified Mottled appearance of the left frontal parietal temporal craniotomy flap. D/ / Primo Goodman / Primo Goodman Interpreting Provider: Primo Goodman Consult Discharge Plan - Plan Referrals: NONE,PCP [Primary Care Provider] - _ (2) Altered mental status Qualifiers: Altered mental status type: somnolence Qualified Code(s): R40.0 - Somnolence (3) HLD (hyperlipidemia) Qualifiers: Hyperlipidemia type: pure hypercholesterolemia Qualified Code(s): E78.00 - Pure hypercholesterolemia, unspecified; E78.0 - Pure hypercholesterolemia (4) HTN (hypertension) Qualifiers: Hypertension type: essential hypertension Qualified Code(s): I10 - Essential (primary) hypertension
[2018-11-29] MEDS: Nicotine 7 MG PATCH.TD24 TD SCH (14:18)
[2018-11-29] MEDS: *HR* Heparin 5,000 UNIT/ML VIAL SQ SCH ×2 (14:18→19:46)
[2018-11-29 18:22] LABS: BUN/Creatinine Ratio 16 (6-26); Blood Urea Nitrogen 10 mg/dL (6-20); Calcium 8.9 mg/dL (8.6-10.3); Carbon Dioxide 24 mEq/L (23-29); Chloride 109 mEq/L (98-107); Glucose 110 mg/dL (70-105); Magnesium 1.6 mg/dL (1.6-2.6); Osmolality,Calculated 290 (280-300); Potassium 3.2 mEq/L (3.5-5.1); Sodium 140 mEq/L (136-145); eGFR For Non-African Americans > 60 (> 60)
[2018-11-29] MEDS: traZODone 50 MG TABLET PO SCH (19:46)
[2018-11-30] MEDS: *HR* LORazepam 2 MG/ML VIAL IVP PRN ×3 (02:34→23:38)
[2018-11-30] MEDS: *HR* Heparin 5,000 UNIT/ML VIAL SQ SCH ×3 (06:10→19:27)
[2018-11-30 06:21] LABS: Hematocrit 34.6 % (35.3-44.9); Hemoglobin 11.6 g/dL (11.5-15.4); Mean Corpuscular HGB Conc 33.5 g/dL (31.6-35.5); Mean Corpuscular Volume 92.5 fL (83.0-100.0); Mean Platelet Volume 10.4 fL (9.4-12.4); Platelet Count 332 K/mcL (140-400); Red Blood Count 3.74 M/mcL (3.82-4.97); Red Cell Distribution Width 12.9 % (11.5-14.5)
[2018-11-30 06:42] LABS: BUN/Creatinine Ratio 9 (6-26); Blood Urea Nitrogen 5 mg/dL (6-20); Calcium 9.1 mg/dL (8.6-10.3); Carbon Dioxide 23 mEq/L (23-29); Chloride 108 mEq/L (98-107); Glucose 109 mg/dL (70-105); Osmolality,Calculated 286 (280-300); Potassium 3.1 mEq/L (3.5-5.1); Sodium 139 mEq/L (136-145); eGFR For Non-African Americans > 60 (> 60)
[2018-11-30] MEDS: Nicotine 7 MG PATCH.TD24 TD SCH (08:55)
[2018-11-30] MEDS: Topiramate 25 MG TABLET PO SCH ×2 (08:55→19:27)
[2018-11-30] MEDS: traZODone 50 MG TABLET PO SCH (19:27)
[2018-11-30] MEDS ORDERED: levETIRAcetam 250 MG TABLET PO SCH (23:30)
[2018-11-30] MEDS ORDERED: diazePAM 5 MG TABLET PO PRN (23:30)
[2018-11-30] MEDS: *HR* Promethazine 25 MG/ML VIAL IVP PRN (23:37)
--- NOTE | 2018-11-30 23:46 | Internal Med Progress Note ---
Hospitalist Progress Note - Encounter Date of Encounter: 11/30/18 Time of Encounter: 19:00 - Subjective Interval History: SUBJECTIVE: The patient feels better. She sleeps a lot. She sees a to wake her up. Answers my questions and follows my commands appropriately. Denies headache. Denies dizziness/lightheadedness. She can walk to the restroom on her own. Denies chest pain and difficulty breathing. Denies abdominal pain, nausea and vomiting. OBJECTIVE: Skin: Free of rash and discoloration. ENMT: Oral/pharyngeal mucosa is normal in appearance. Eyes: Sclera is white. There is no discharge from eyes. Respiratory: Normal breath sounds; no crackles or wheezes. CV: Heart is regular; no gallop or murmur. GI: Abdomen is soft and not tender. There is no palpable mass or visceromegaly. Neuro: There is no focal deficits. ADDITIONAL DATA: CBC is normal. BMP shows potassium of 3.1; the rest is normal. ASSESSMENT AND PLAN: Altered mental status in a patient with history of CVA/positive urine drug screen for amphetamines, benzodiazepines and marijuana. Better. She is basically baseline. She is sleeping a lot, as she did not get adequate amount of sleep in the last couple days. Her depression seems to be in remission. She is not suicidal. She does not seem to be dangerous for others. Will discontinue her sitter. DISPOSITION: Tentative discharge is tomorrow early afternoon. - Exam Vitals: Temp Pulse Resp BP Pulse Ox 98.3 F 73 16 155/95 95 11/30/18 23:13 11/30/18 23:13 11/30/18 23:13 11/30/18 23:13 11/30/18 23:13 Exam: xx - Assessment and Plan (1) Altered mental status Current Visit: Yes Status: Acute (2) History of CVA (cerebrovascular accident) Current Visit: Yes Status: Chronic (3) Positive urine drug screen Current Visit: Yes Status: Acute (4) History of seizures Current Visit: Yes Status: Chronic (5) Major depressive disorder, recurrent episode with anxious distress Current Visit: Yes Status: Chronic (6) MICHELE (acute kidney injury) Current Visit: Yes Status: Resolved (7) Hypokalemia Current Visit: Yes Status: Acute - Time Spent with Patient Total time spent is greater than 50% in coordination of care (as documented) at patient's floor/unit and/or counseling patient: Internal Medicine: Result - Labs CBC & Chem 7: 11/30/18 05:36 11/30/18 05:36 Labs: Short CBC 11/30/18 Range/Units 05:36 WBC 9.6 (4.3-11.1) K/mcL Hgb 11.6 (11.5-15.4) g/dL Hct 34.6 L (35.3-44.9) % Plt Count 332 (140-400) K/mcL BMP 11/30/18 05:36 Sodium 139 Potassium 3.1 L Chloride 108 H Carbon Dioxide 23 BUN 5 L Creatinine 0.54 L Glucose 109 H Calcium 9.1 - ABG Interpretation ABG results: PT/INR, D-dimer PT 11.9 Seconds (9.4-12.1) 11/29/18 03:48 Consult Discharge Plan - Plan Referrals: NONE,PCP [Primary Care Provider] - (1) Altered mental status Qualifiers: Altered mental status type: somnolence Qualified Code(s): R40.0 - Somnolence
[2018-12-01] MEDS ORDERED: diazePAM 2 MG TABLET PO PRN (02:54)
[2018-12-01] MEDS ORDERED: Potassium Chloride 40 MEQ, Lidocaine 1% 2 ML in D5% in Water 500 ML IVPB ONE (03:16)
[2018-12-01] MEDS: *HR* Heparin 5,000 UNIT/ML VIAL SQ SCH (04:55)
[2018-12-01] MEDS ORDERED: levETIRAcetam 250 MG TABLET PO SCH (06:00)
[2018-12-01 06:51] LABS: BUN/Creatinine Ratio 7 (6-26); Blood Urea Nitrogen 4 mg/dL (6-20); Calcium 9.8 mg/dL (8.6-10.3); Carbon Dioxide 23 mEq/L (23-29); Chloride 104 mEq/L (98-107); Glucose 103 mg/dL (70-105); Osmolality,Calculated 283 (280-300); Potassium 3.5 mEq/L (3.5-5.1); Sodium 138 mEq/L (136-145); eGFR For Non-African Americans > 60 (> 60)
[2018-12-01] MEDS: Nicotine 7 MG PATCH.TD24 TD SCH (07:45)
[2018-12-01] MEDS: Topiramate 25 MG TABLET PO SCH (07:45)
[2018-12-01] MEDS ORDERED: Famotidine 20 MG TABLET PO SCH (09:00)
[2018-12-01] MEDS ORDERED: Folic Acid 1 MG TABLET PO SCH (09:00)
[2018-12-01] MEDS ORDERED: Gabapentin 300 MG CAPSULE PO SCH (09:00)
[2018-12-01 11:26] VITALS: BP 169/99
--- NOTE | 2018-12-01 11:30 | Discharge Summary ---
Date of Encounter: 12/01/18 Time of Encounter: 11:00 - Discharge Diagnosis (1) Altered mental status Priority: Primary Status: Acute Qualifiers: Altered mental status type: somnolence Qualified Code(s): R40.0 - Somnolence (2) History of CVA (cerebrovascular accident) Priority: Secondary Status: Chronic (3) Positive urine drug screen Priority: Primary Status: Acute (4) History of seizures Priority: Secondary Status: Chronic (5) Major depressive disorder, recurrent episode with anxious distress Priority: Secondary Status: Chronic (6) MICHELE (acute kidney injury) Priority: Primary Status: Resolved (7) Hypokalemia Priority: Primary Status: Resolved Hospital course: HOSPITAL COURSE: The patient is a 53-year-old woman. Admitted with altered mental status, likely secondary to substance abuse. Urine drug screen was positive for amphetamines, benzodiazepines and marijuana. It was negative for salicylates, acetaminophen and ethyl alcohol. Her mental status returned to normal by the end of this hospitalization. She was able to ambulate on her own on the day of discharge. Psychiatry consult was obtained. The patients depression seems to be under control with medications she was using at home. The patient was dehydrated/having acute kidney injury at admissionresolved with IV fluids. She got supplemental potassium chloride by mouth to treat her hypokalemia. CONDITION AT DISCHARGE: Feels good. Wants to go home. Has no problems with meals. Can ambulate on her own. Denies chest pain and difficulty breathing. Denies coughing and wheezing. Denies abdominal pain, nausea and vomiting. She has normal urination. Skin: Free of rash and discoloration. Respiratory: Normal breath sounds with no crackles and wheezes bilaterally. CV: Heart is regular with no gallop or murmur. GI: Abdomen is flat and soft with no palpable mass or visceromegaly. Neuro exam: There is no focal deficits. Normal speech, swallowing and gait. SEE DISCHARGE ORDERS/MEDICATIONS I advised this patient to quit using drugs. Discharge discussed with: patient, family - Time Spent with Patient Total time spent providing and/or coordinating discharge services: Time spent: Greater than 30 minutes (40 minutes...) - Discharge Medications Prescriptions: Continue Donepezil [Aricept] 5 mg PO HS Famotidine [Pepcid] 20 mg PO BID Folic Acid 1 mg PO DAILY LevETIRAcetam [Keppra] 500 mg PO Q12H Levothyroxine [Synthroid] 100 mcg PO Q48H Levothyroxine [Synthroid] 112 mcg PO Q48H Lisinopril [Zestril] 5 mg PO DAILY Melatonin [Melatin] 3 mg PO HS Metoprolol [Lopressor] 12.5 mg PO BID Pravastatin Sodium 10 mg PO QPM Topiramate [Topamax] 25 mg PO BID Rizatriptan Benzoate [Maxalt Sw[employer] Gen[employer] Researcher] 10 mg SL DAILY PRN PRN Reason: Headache Gabapentin [Neurontin] 300 mg PO TID traZODone [TraZODone] 75 mg PO HS Naproxen 500 mg PO BID PRN PRN Reason: Headache diazePAM [Valium] 5 mg PO BID PRN PRN Reason: Anxiety Duloxetine HCl [Cymbalta] 60 mg PO DAILY DULoxetine [Cymbalta] 30 mg PO DAILY Home Medications: Donepezil [Aricept] 5 mg PO HS 05/09/18 [History] Famotidine [Pepcid] 20 mg PO BID 05/09/18 [History] Folic Acid 1 mg PO DAILY 05/09/18 [History] LevETIRAcetam [Keppra] 500 mg PO Q12H 05/09/18 [History] Levothyroxine [Synthroid] 100 mcg PO Q48H 05/09/18 [History] Levothyroxine [Synthroid] 112 mcg PO Q48H 05/09/18 [History] Lisinopril [Zestril] 5 mg PO DAILY 05/09/18 [History] Melatonin [Melatin] 3 mg PO HS 05/09/18 [History] Metoprolol [Lopressor] 12.5 mg PO BID 05/09/18 [History] Pravastatin Sodium 10 mg PO QPM 05/09/18 [History] Topiramate [Topamax] 25 mg PO BID 05/09/18 [History] Gabapentin [Neurontin] 300 mg PO TID 10/07/18 [History] Naproxen 500 mg PO BID PRN 10/07/18 [History] Rizatriptan Benzoate [Maxalt Swine Genetics Researcher] 10 mg SL DAILY PRN 10/07/18 [History] traZODone [TraZODone] 75 mg PO HS 10/07/18 [History] DULoxetine [Cymbalta] 30 mg PO DAILY 11/30/18 [History] Duloxetine HCl [Cymbalta] 60 mg PO DAILY 11/30/18 [History] diazePAM [Valium] 5 mg PO BID PRN 11/30/18 [History] Allergies/Adverse Reactions: Allergy/AdvReac Type Severity Reaction Status Date / Time Sulfa (Sulfonamide AdvReac Hives Verified 11/30/18 15:25 Antibiotics) Date of admission: 11/28/18 21:41 Primary care physician: PCP NONE Consults: 11/28/18 20:46 Consult to [employer] [CONS] Routine Reason for SW Consult: Please assess patient for rehabilitation needs for post-discharge planning. 11/28/18 20:58 Consult to Psychiatry [CONS] Routine Consulting Provider: Psychiatry Franci Reason consult: Altered mental status Other reason and/or additional details: Patient has been abusing meth according to her son on report. Pt. altered and combative on admission to ED so she was sedated. Hx of anxiety, depression, and prior suicide attempt. Last admission was in early May 2018. 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 Please assess patient for ambulation strength, safety, stability, and possible home assistive/rehabilitation needs for postdischarge planning. 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 Please assess patient for ambulation strength, safety, stability, and possible home assistive/rehabilitation needs for postdischarge planning. Does patient have active BEDREST order?: No Is patient medically & hemodynamically stable?: Yes Patient assessed for mobility or mobilized this visit?: No Discharging clinician: Robin Polo Anticipated date of discharge: 12/01/18 - Constitutional Vitals: Temp Pulse Resp BP Pulse Ox 98.7 F 72 17 169/99 98 12/01/18 11:24 12/01/18 11:24 12/01/18 11:24 12/01/18 11:24 12/01/18 11:24 General appearance: Present: A&O X 3, no acute distress, answers questions appropriately Exam: xx - Patient Status Disposition: Home, Self-Care Condition: Fair Overall status at discharge: patient is back to baseline - Discharge Instructions Instructions: Brief Psychotic Disorder (DC), Altered Mental Status (GEN) Follow Up With: Ucci,Markell Macias MD [Non-Partnered Physician] - 12/04/18 4:00 pm (Pleasew follow up as schedule...) NONE,PCP [Primary Care Provider] - Additional Instructions: THE PATIENT WAS ADVISED TO STOP USING DRUGS. - Diet and Activity Activity: increase activity as tolerated Diet: advance to your usual diet
--- NOTE | 2018-12-01 14:03 | Psychiatry Progress Note ---
Date of Encounter: 12/01/18 Time of Encounter: 10:10 Subjective Interval history: She was seen sleeping in her room and was awakened easily by verbal stimuli. She reports that she is "tired but rated ago." She states that she "feels clear." She states that "I want to go home and take care of me." When asked what that statement meant, she was vague in her answer, though states that she is going to take medication and eat right. She appears logical and linear in thought process and did not show confusion this a.m. She is alert and oriented 3. She reports she did not know how her depression or anxiety were today. She denies issues with sleep. Denies significant issues with side effects to medication. She denies SI, HI, AH, and VH. Review of Systems Neurological: Denies: confusion Psychiatric: Denies: depression, anxiety, abnormal sleep pattern, suicidal ideation, change in appetite, homicidal ideation, auditory hallucinations, visual hallucinations, confusion Results - Vital Signs Vital Signs: Temp Pulse Resp BP Pulse Ox 98.7 F 72 17 169/99 98 12/01/18 11:24 12/01/18 11:24 12/01/18 11:24 12/01/18 11:24 12/01/18 11:24 - Drug Levels and Toxicology Drug Levels and Toxicology: None noted this a.m. - Labs Labs: Laboratory Results - last 24 hr 12/01/18 12/01/18 04:47 06:46 Sodium 138 Potassium 3.5 Chloride 104 Carbon Dioxide 23 BUN 4 L Creatinine 0.60 Est GFR ( Amer) > 60 Est GFR (Non-Af Amer) > 60 BUN/Creatinine Ratio 7 Glucose 103 Calculated Osmolality 283 Calcium 9.8 Specimen Rejected Clotted - Impressions ITS Impressions Head CT 11/28/18 16:49 IMPRESSION: No acute intracranial abnormality. Chronic encephalomalacia identified left MCA distribution Aneurysm clip and embolization coil packs and pipeline / stents identified Mottled appearance of the left frontal parietal temporal craniotomy flap. D/ / Primo Goodman / Primo Goodman Interpreting Provider: Primo Goodman Chest X-Ray 11/29/18 11:41 IMPRESSION: No acute cardiopulmonary process. D/ / 11/29/2018 20:17:32 Dariusz Engel MD / adrian Interpreting Provider: Dariusz Engel MD Assessment and Plan (1) Altered mental status Status: Acute Plan: Continue hospitalization, Monitor sleep, Monitor appetite Additional Plan: -With further clearing of patient's mentation, it appears that the recent altered mental status was substance induced. -Recommend continuing psychiatric medication at this time. -Recommend drooling psychiatric and counseling follow-up upon discharge -Patient is cleared from a psychiatric standpoint. We will sign off at this time. Please also be have any other questions or concerns. Thank you for the consult. Risks, benefits, side effects, alternatives discussed w/pt: No (No changes made this a.m.) Patient agreeable to treatment: Yes Qualifiers: Altered mental status type: somnolence Qualified Code(s): R40.0 - Somnolence Consult Discharge Plan - Plan Instructions: Brief Psychotic Disorder (DC), Altered Mental Status (GEN) Additional Instructions: THE PATIENT WAS ADVISED TO STOP USING DRUGS. [facility]errals: [facility] [Non-Partnered Physician] - 12/04/18 4:00 pm (Pleasew follow up as schedule...) NONE,PCP [Primary Care Provider] - - Attending Attestation I examined this patient and my medical decision-making was reviewed with the Resident Physician. I agree with the documented findings, disposition and treatment plan as described except to the extent set forth below. Psychiatry Exam - Constitutional Vitals: Temp Pulse Resp BP Pulse Ox 98.7 F 72 17 169/99 98 12/01/18 11:24 12/01/18 11:24 12/01/18 11:24 12/01/18 11:24 12/01/18 11:24 General appearance: age & developmentally appropriate, well-groomed, well- nourished, average - Musculoskeletal Gait: other (Not assessed) Station: relaxed Strength & Tone: normal for patient (Grossly) - Psychiatric Patient Orientation: Yes Person, Yes Time, Yes Place Level of alertness: Alert (Drowsy) Behavior: calm, cooperative, guarded (Mildly) Psychomotor activity: Slowed (Mildly) Eye Contact: Maintains Eye Contact Mood Description: Euthymic/stable Patient description of mood: "Tired but ready to go" Affect description: constricted Speech Volume: Soft/Quiet Speech pattern: normal rate, normal tone, fluent, spontaneous, appropriate, limited (Decreased prosody), garbled (Mildly so) Language & Vocabulary: consistent with education Thought Process: Logical, Linear, Goal Oriented Thought Content: No Suicidal ideation, No Homicidal ideation, No Overt delusions Perceptual Disturbances: No Reacting to internal stimuli, No Auditory hallucinations, No Visual hallucinations Attention Span Ability: Capable of Focused Attention, Capable of Sustained Attention Memory Description: Grossly Intact Patient Reliability: Reliable Historian Fund of knowledge: Yes abstraction ability, Yes aware of current events Intelligence Estimate: Average Judgment: Limited Insight: Partial
[2018-12-01] MEDS ORDERED: Melatonin 3 MG TABLET PO SCH (21:00)
--- NOTE | 2018-12-03 08:08 | Electrocardiograph Report ---
[address] [place], [place] [address] Test Date: 2018-11-28 Pat Name: Radah Cee Department: EXAM21 Room: 2A37 Gender: F Radiologist Chief Of Breast Imaging: : 1965 Requested By: Ppie Mitchell Order Number: [id number] Reading MD: Rasta Fuentes Measurements Intervals [place] Rate: 126 P: 77 FL: 237 QRS: 67 QRSD: 87 T: 268 QT: 339 QTc: 491 Interpretive Statements Sinus tachycardia LAE, consider biatrial enlargement Probable LVH with secondary repol abnrm Borderline prolonged QT interval Electronically Signed On 12-03-2018 8:06:44 EDT by Rasta Fuentes
== END 2018-12-01 13:06 | disposition home or self-care (01) ==
LOC: 2ANU 16:27 → EMEROOARM 16:27 → SUATTDRO 21:41 → 2ANU 22:04
PROVIDERS: ADMIT Internal Medicine; ATTEND Internal Medicine

== ENCOUNTER 2019-08-10 06:28 | Inpatient (IN) ==
[2019-08-10] MEDS ORDERED: *HR* LORazepam 1 MG TABLET PO ONE (06:48)
[2019-08-10 07:01] LABS: Bilirubin,Urine Negative (Negative); Blood,Urine Negative (Negative); Clarity,Urine Clear (Clear); Color,Urine Yellow (Yellow); Glucose,Urine (UA) Normal (Normal); Ketones,Urine Negative (Negative); Leukocyte Esterase,Urine Negative (Negative); Nitrite,Urine Negative (Negative); Protein,Urine Negative (Neg-Trace); Specific Gravity,Urine 1.011 (1.010-1.025); Urobilinogen,Urine Normal (Normal)
[2019-08-10 07:05] LABS: Amphetamine Screen,Urine Negative ng/mL (Cutoff=1000); Barbiturate Screen,Urine Negative ng/mL (Cutoff=200); Benzodiazepines Screen,Urine Negative ng/mL (Cutoff=300); Cannabinoid Screen,Urine Positive ng/mL (Cutoff = 50); Cocaine Screen,Urine Negative ng/mL (Cutoff= 300); Opiate Screen,Urine Negative ng/mL (Cutoff=300); Phencyclidine Screen,Urine Negative ng/mL (Cutoff=25)
[2019-08-10 07:26] LABS: Hematocrit 41.4 % (35.3-44.9); Hemoglobin 14.2 g/dL (11.5-15.4); Immature Granulocytes % 0.4 % (0-4); Mean Corpuscular HGB Conc 34.3 g/dL (31.6-35.5); Mean Corpuscular Hemoglobin 32.2 pg (28.0-33.3); Mean Corpuscular Volume 93.9 fL (83.0-100.0); Mean Platelet Volume 9.9 fL (9.4-12.4); Platelet Count 346 K/mcL (140-400); Red Blood Count 4.41 M/mcL (3.82-4.97); Red Cell Distribution Width 13.3 % (11.5-14.5); White Blood Count 7.5 K/mcL (4.3-11.1)
[2019-08-10 07:27] LABS: Basophils # 0.1 K/mcL (0.0-0.2); Basophils % 0.9 %; Eosinophils # 0.4 K/mcL (0.0-0.6); Eosinophils % 4.9 %; Lymphocytes # 2.2 K/mcL (0.6-4.6); Lymphocytes % 29.1 %; Monocytes # 0.5 K/mcL (0.0-1.3); Monocytes % 6.7 %; Neutrophils # 4.4 K/mcL (1.6-8.9)
[2019-08-10] MEDS: Nicotine 21 MG PATCH.TD24 TD SCH ×2 (07:43→11:16)
[2019-08-10 07:48] LABS: Acetaminophen < 10 mcg/mL (10-20); BUN/Creatinine Ratio 18 (6-26); Blood Urea Nitrogen 14 mg/dL (6-20); Calcium 9.6 mg/dL (8.6-10.3); Carbon Dioxide 25 mEq/L (23-29); Chloride 102 mEq/L (98-107); Chol/HDL Ratio 4.1 (0-4.9); Cholesterol 174 mg/dL (< 200); Ethanol < 10 mg/dL (Less than 10); Glucose 114 mg/dL (70-105); HDL Cholesterol 42 mg/dL (40-59); LDL Cholesterol,Calculated 93 mg/dL (0-99); Osmolality,Calculated 289 (280-300); Potassium 3.6 mEq/L (3.5-5.1); Salicylate < 2.5 mg/dL (15.0-30.0); Sodium 139 mEq/L (136-145); Triglycerides 195 mg/dL (< 150); eGFR For African Americans > 60 (> 60); eGFR For Non-African Americans > 60 (> 60)
[2019-08-10 08:27] LABS: Estimated Average Glucose 126 mg/dl
[2019-08-10] MEDS ORDERED: *HR* LORazepam 1 MG TABLET PO PRN (10:59)
[2019-08-10] MEDS ORDERED: Acetaminophen 325 MG TABLET PO PRN (10:59)
[2019-08-10] MEDS ORDERED: *HR* LORazepam 2 MG/ML VIAL IM PRN (10:59)
[2019-08-10] MEDS ORDERED: Haloperidol Lactate 5 MG/ML VIAL IM PRN (10:59)
[2019-08-10] MEDS ORDERED: Mag Hydrox/Al Hydrox/Simeth 30 ML UDC PO PRN (10:59)
[2019-08-10] MEDS ORDERED: hydrOXYzine pamoate 25 MG CAPSULE PO PRN (10:59)
[2019-08-10] MEDS ORDERED: traZODone 50 MG TABLET PO PRN (10:59)
[2019-08-10] MEDS ORDERED: MOM Conc 10 ML UD.LIQ PO PRN (10:59)
[2019-08-10] MEDS ORDERED: NALOXONE NS PRN (13:18)
[2019-08-10] MEDS ORDERED: (Rizatriptan Benzoate [Maxalt Mlt] 10 MG) SL PRN (13:18)
[2019-08-10] MEDS: Gabapentin 300 MG CAPSULE PO SCH ×2 (16:54→20:28)
[2019-08-10] MEDS: Furosemide 20 MG TABLET PO SCH (16:54)
[2019-08-10] MEDS: Melatonin 3 MG TABLET PO SCH (20:26)
[2019-08-10] MEDS: levETIRAcetam 250 MG TABLET PO SCH (20:28)
[2019-08-10] MEDS: Famotidine 20 MG TABLET PO SCH (20:28)
[2019-08-10] MEDS: BUPRENORPHINE HCL SL SCH (20:29)
[2019-08-10] MEDS: NALOXONE HCL SL SCH (20:29)
[2019-08-10] MEDS ORDERED: NON-FORMULARY MEDICATION 1 EACH EACH (Duloxetine Hcl [Cymbalta] 60 MG) PO SCH (21:00)
[2019-08-11] MEDS: levETIRAcetam 250 MG TABLET PO SCH ×2 (08:36→20:45)
[2019-08-11] MEDS: Spironolactone 25 MG TABLET PO SCH (08:36)
[2019-08-11] MEDS: Nicotine 21 MG PATCH.TD24 TD SCH (08:36)
[2019-08-11] MEDS: Famotidine 20 MG TABLET PO SCH ×2 (08:37→20:45)
[2019-08-11] MEDS: hydroCHLOROthiazide 25 MG TABLET PO SCH (08:37)
[2019-08-11] MEDS: Furosemide 20 MG TABLET PO SCH ×2 (08:37→16:23)
[2019-08-11] MEDS: Folic Acid 1 MG TABLET PO SCH (08:37)
[2019-08-11] MEDS: Gabapentin 300 MG CAPSULE PO SCH ×3 (08:38→20:45)
[2019-08-11] MEDS: Topiramate 25 MG TABLET PO SCH (08:38)
[2019-08-11] MEDS ORDERED: BUPRENORPHINE HCL SL SCH (09:00)
[2019-08-11] MEDS ORDERED: NALOXONE HCL SL SCH (09:00)
[2019-08-11] MEDS: BUPRENORPHINE HCL SL SCH (09:53)
[2019-08-11] MEDS: NALOXONE HCL SL SCH (09:53)
[2019-08-11] MEDS: Melatonin 3 MG TABLET PO SCH (20:44)
[2019-08-12] MEDS: Folic Acid 1 MG TABLET PO SCH (09:56)
[2019-08-12] MEDS: hydroCHLOROthiazide 25 MG TABLET PO SCH (09:57)
[2019-08-12] MEDS: Gabapentin 300 MG CAPSULE PO SCH ×3 (09:57→20:24)
[2019-08-12] MEDS: Topiramate 25 MG TABLET PO SCH (09:58)
[2019-08-12] MEDS: Spironolactone 25 MG TABLET PO SCH (09:58)
[2019-08-12] MEDS: Famotidine 20 MG TABLET PO SCH ×2 (09:58→20:24)
[2019-08-12] MEDS: levETIRAcetam 250 MG TABLET PO SCH ×2 (09:58→20:24)
[2019-08-12] MEDS: Nicotine 21 MG PATCH.TD24 TD SCH (09:59)
[2019-08-12] MEDS: Furosemide 20 MG TABLET PO SCH ×2 (10:02→17:06)
[2019-08-12] MEDS: BUPRENORPHINE HCL SL SCH (10:25)
[2019-08-12] MEDS: NALOXONE HCL SL SCH (10:25)
[2019-08-12] MEDS: Melatonin 3 MG TABLET PO SCH (20:23)
[2019-08-13] MEDS: levETIRAcetam 250 MG TABLET PO SCH (08:36)
[2019-08-13] MEDS: Spironolactone 25 MG TABLET PO SCH (08:36)
[2019-08-13] MEDS: Gabapentin 300 MG CAPSULE PO SCH ×3 (08:36→20:40)
[2019-08-13] MEDS: Famotidine 20 MG TABLET PO SCH ×2 (08:36→20:40)
[2019-08-13] MEDS: hydroCHLOROthiazide 25 MG TABLET PO SCH (08:37)
[2019-08-13] MEDS: Topiramate 25 MG TABLET PO SCH (08:37)
[2019-08-13] MEDS: Furosemide 20 MG TABLET PO SCH ×2 (08:38→16:33)
[2019-08-13] MEDS: Folic Acid 1 MG TABLET PO SCH (08:38)
[2019-08-13] MEDS: Nicotine 21 MG PATCH.TD24 TD SCH (08:41)
[2019-08-13] MEDS: NALOXONE HCL SL SCH (08:42)
[2019-08-13] MEDS: BUPRENORPHINE HCL SL SCH (08:42)
[2019-08-13] MEDS ORDERED: levETIRAcetam 250 MG TABLET PO SCH (18:00)
[2019-08-13] MEDS: Melatonin 3 MG TABLET PO SCH (20:42)
[2019-08-14] MEDS: Famotidine 20 MG TABLET PO SCH (08:40)
[2019-08-14] MEDS: Gabapentin 300 MG CAPSULE PO SCH (08:40)
[2019-08-14] MEDS: Folic Acid 1 MG TABLET PO SCH (08:40)
[2019-08-14] MEDS: Topiramate 25 MG TABLET PO SCH (08:40)
[2019-08-14] MEDS: Nicotine 21 MG PATCH.TD24 TD SCH (08:40)
[2019-08-14] MEDS: BUPRENORPHINE HCL SL SCH (08:42)
[2019-08-14] MEDS: NALOXONE HCL SL SCH (08:42)
[2019-08-14] MEDS ORDERED: levETIRAcetam 250 MG TABLET PO SCH (09:00)
[2019-08-14 09:20] VITALS: BP 107/77
[2019-08-14] MEDS: Furosemide 20 MG TABLET PO SCH (10:00)
[2019-08-14] MEDS: hydroCHLOROthiazide 25 MG TABLET PO SCH (10:00)
[2019-08-14] MEDS: Spironolactone 25 MG TABLET PO SCH (10:00)
== END 2019-08-14 13:40 | disposition home or self-care (01) | DRG 751 ==
LOC: EMEROOARM 06:28 → 1ANU 10:25
PROVIDERS: ADMIT Psychiatry & Neurology Psychiatry; ATTEND Psychiatry & Neurology Psychiatry

== ENCOUNTER 2019-12-14 18:47 | Inpatient (IN) ==
[2019-12-14] MEDS ORDERED: Morphine Sulfate 2 MG/ML SYRINGE IVP ONE (19:24)
[2019-12-14] MEDS ORDERED: Isovue-370 500 ML BOTTLE IVP ONE (19:24)
[2019-12-14] MEDS ORDERED: Ondansetron 4 MG/2 ML VIAL IVP ONE (19:24)
[2019-12-14 20:26] LABS: Bilirubin,Urine Negative (Negative); Blood,Urine Negative (Negative); Clarity,Urine Clear (Clear); Color,Urine Yellow (Yellow); Glucose,Urine (UA) Normal (Normal); Ketones,Urine Negative (Negative); Leukocyte Esterase,Urine Negative (Negative); Nitrite,Urine Negative (Negative); PH,Urine 5.5 pH Units (5.0-8.0); Protein,Urine Negative (Neg-Trace); Specific Gravity,Urine 1.016 (1.010-1.025); Urobilinogen,Urine Normal (Normal)
[2019-12-14 20:31] LABS: Basophils % 0.3 %; Eosinophils # 0.3 K/mcL (0.0-0.6); Eosinophils % 1.9 %; Hematocrit 38.7 % (35.3-44.9); Immature Granulocytes % 0.5 % (0-4); Lymphocytes # 2.2 K/mcL (0.6-4.6); Lymphocytes % 15.4 %; Mean Corpuscular HGB Conc 33.6 g/dL (31.6-35.5); Mean Corpuscular Hemoglobin 30.9 pg (28.0-33.3); Mean Corpuscular Volume 91.9 fL (83.0-100.0); Monocytes # 0.7 K/mcL (0.0-1.3); Monocytes % 5.2 %; Neutrophils # 10.8 K/mcL (1.6-8.9); Platelet Count 280 K/mcL (140-400); Prothrombin Time 11.9 Seconds (9.4-12.1); Red Blood Count 4.21 M/mcL (3.82-4.97); Red Cell Distribution Width 12.8 % (11.5-14.5); Segmented Neutrophils % 76.7 %; White Blood Count 14.1 K/mcL (4.3-11.1)
[2019-12-14 20:46] LABS: Albumin 4.1 g/dL (3.5-5.7); Albumin/Globulin Ratio 1.4 (1.1-2.2); Bilirubin,Direct 0.1 mg/dL (0.0-0.2); Bilirubin,Indirect 0.2 mg/dL (0.0-1.0); Bilirubin,Total 0.3 mg/dL (0.3-1.0); Calcium 9.9 mg/dL (8.6-10.3); Globulin 2.9 g/dL (2.4-3.5); Potassium 3.3 mEq/L (3.5-5.1)
[2019-12-14] MEDS ORDERED: 0.9 % Sodium Chloride 1,000 ML IVC ONE ×2 (20:52→22:32)
[2019-12-14] MEDS ORDERED: Potassium Chloride Elixir 20 MEQ/15 ML UDC PO ONE (22:33)
[2019-12-14] MEDS ORDERED: MetroNIDAZOLE 500 MG/100 ML 500 MG/100 ML BAG IVPB ONE (22:35)
[2019-12-14] MEDS ORDERED: Naloxone 0.4 MG/ML INJ IVP PRN (23:04)
[2019-12-14] MEDS ORDERED: (Rizatriptan Benzoate [Maxalt Mlt] 10 MG) SL PRN (23:07)
[2019-12-14] MEDS ORDERED: 0.9 % Sodium Chloride 1,000 ML IVC SCH (23:15)
[2019-12-15] MEDS ORDERED: Potassium Chloride 40 MEQ, Lidocaine 1% 2 ML in 0.9 % Sodium Chloride 500 ML IVPB ONE (00:12)
[2019-12-15] MEDS: levETIRAcetam 250 MG TABLET PO SCH ×3 (00:57→21:48)
[2019-12-15 03:02] LABS: Basophils # 0.1 K/mcL (0.0-0.2); Basophils % 0.4 %; Eosinophils # 0.4 K/mcL (0.0-0.6); Eosinophils % 2.8 %; Hematocrit 37.2 % (35.3-44.9); Immature Granulocytes % 0.4 % (0-4); Lymphocytes # 2.7 K/mcL (0.6-4.6); Lymphocytes % 18.8 %; Mean Corpuscular HGB Conc 32.3 g/dL (31.6-35.5); Mean Corpuscular Hemoglobin 30.9 pg (28.0-33.3); Mean Corpuscular Volume 95.9 fL (83.0-100.0); Mean Platelet Volume 10.7 fL (9.4-12.4); Monocytes # 0.9 K/mcL (0.0-1.3); Monocytes % 6.2 %; Neutrophils # 10.3 K/mcL (1.6-8.9); Platelet Count 269 K/mcL (140-400); Red Blood Count 3.88 M/mcL (3.82-4.97); Red Cell Distribution Width 13.1 % (11.5-14.5); Segmented Neutrophils % 71.4 %; White Blood Count 14.4 K/mcL (4.3-11.1)
[2019-12-15 03:29] LABS: Alanine Aminotransferase 8 Units/L (7-52); Albumin 3.7 g/dL (3.5-5.7); Albumin/Globulin Ratio 1.3 (1.1-2.2); Alkaline Phosphatase 74 Units/L (34-104); Aspartate Amino Transferase 11 Units/L (13-39); BUN/Creatinine Ratio 18 (6-26); Bilirubin,Total 0.3 mg/dL (0.3-1.0); Blood Urea Nitrogen 19 mg/dL (6-20); Calcium 8.8 mg/dL (8.6-10.3); Carbon Dioxide 27 mEq/L (23-29); Chloride 104 mEq/L (98-107); Globulin 2.9 g/dL (2.4-3.5); Glucose 115 mg/dL (70-105); Osmolality,Calculated 289 (280-300); Potassium 3.2 mEq/L (3.5-5.1); Sodium 138 mEq/L (136-145); Total Protein 6.6 g/dL (6.4-8.9); eGFR For African Americans > 60 (> 60); eGFR For Non-African Americans 53 (> 60)
[2019-12-15] MEDS ORDERED: hydrOXYzine pamoate 25 MG CAPSULE PO PRN (08:43)
[2019-12-15] MEDS: Gabapentin 300 MG CAPSULE PO SCH ×3 (08:57→21:49)
[2019-12-15] MEDS: Topiramate 25 MG TABLET PO SCH (08:58)
[2019-12-15] MEDS: MetroNIDAZOLE 500 MG/100 ML 500 MG/100 ML BAG IVPB SCH ×2 (09:01→14:45)
[2019-12-15] MEDS: Folic Acid 1 MG TABLET PO SCH (09:02)
[2019-12-15] MEDS: BUPRENORPHIN NALOXON SL SCH (09:12)
[2019-12-15] MEDS: Ondansetron 4 MG/2 ML VIAL IVP PRN (20:44)
[2019-12-15] MEDS: Melatonin 3 MG TABLET PO SCH (21:49)
[2019-12-16] MEDS: MetroNIDAZOLE 500 MG/100 ML 500 MG/100 ML BAG IVPB SCH ×3 (00:24→16:35)
[2019-12-16 05:38] LABS: Basophils # 0.1 K/mcL (0.0-0.2); Basophils % 0.5 %; Eosinophils # 0.4 K/mcL (0.0-0.6); Eosinophils % 3.9 %; Hematocrit 35.5 % (35.3-44.9); Hemoglobin 11.7 g/dL (11.5-15.4); Immature Granulocytes % 0.2 % (0-4); Lymphocytes # 1.6 K/mcL (0.6-4.6); Lymphocytes % 16.7 %; Mean Corpuscular Hemoglobin 31.5 pg (28.0-33.3); Mean Corpuscular Volume 95.7 fL (83.0-100.0); Mean Platelet Volume 10.2 fL (9.4-12.4); Monocytes # 0.6 K/mcL (0.0-1.3); Monocytes % 6.1 %; Neutrophils # 6.9 K/mcL (1.6-8.9); Platelet Count 240 K/mcL (140-400); Red Blood Count 3.71 M/mcL (3.82-4.97); Red Cell Distribution Width 13.2 % (11.5-14.5); Segmented Neutrophils % 72.6 %; White Blood Count 9.5 K/mcL (4.3-11.1)
[2019-12-16 05:56] LABS: BUN/Creatinine Ratio 8 (6-26); Blood Urea Nitrogen 5 mg/dL (6-20); Calcium 9.3 mg/dL (8.6-10.3); Carbon Dioxide 22 mEq/L (23-29); Chloride 109 mEq/L (98-107); Glucose 97 mg/dL (70-105); Magnesium 1.6 mg/dL (1.6-2.6); Osmolality,Calculated 283 (280-300); Phosphorous 2.1 mg/dL (2.7-4.5); Potassium 3.9 mEq/L (3.5-5.1); Sodium 138 mEq/L (136-145); eGFR For African Americans > 60 (> 60); eGFR For Non-African Americans > 60 (> 60)
[2019-12-16] MEDS: Ondansetron 4 MG/2 ML VIAL IVP PRN (08:16)
[2019-12-16] MEDS: levETIRAcetam 250 MG TABLET PO SCH ×2 (08:17→20:21)
[2019-12-16] MEDS: hydroCHLOROthiazide 25 MG TABLET PO SCH (08:18)
[2019-12-16] MEDS: Spironolactone 25 MG TABLET PO SCH (08:18)
[2019-12-16] MEDS: Topiramate 25 MG TABLET PO SCH (08:18)
[2019-12-16] MEDS: Folic Acid 1 MG TABLET PO SCH (08:18)
[2019-12-16] MEDS: BUPRENORPHIN NALOXON SL SCH (08:19)
[2019-12-16] MEDS: Furosemide 20 MG TABLET PO SCH ×2 (08:19→16:35)
[2019-12-16] MEDS: Gabapentin 300 MG CAPSULE PO SCH ×3 (08:19→20:22)
[2019-12-16] MEDS ORDERED: SODIUM CHLORIDE/NAHCO3/KCL/PEG 4,000 ML SOLN.RECON PO ONE (17:00)
[2019-12-16] MEDS: Melatonin 3 MG TABLET PO SCH (20:22)
[2019-12-17] MEDS: MetroNIDAZOLE 500 MG/100 ML 500 MG/100 ML BAG IVPB SCH ×2 (00:16→10:57)
[2019-12-17] MEDS: Ondansetron 4 MG/2 ML VIAL IVP PRN ×2 (01:38→10:55)
[2019-12-17 02:30] LABS: Basophils % 0.4 %; Eosinophils # 0.2 K/mcL (0.0-0.6); Eosinophils % 1.7 %; Hematocrit 36.1 % (35.3-44.9); Immature Granulocytes % 0.6 % (0-4); Lymphocytes # 1.4 K/mcL (0.6-4.6); Mean Corpuscular HGB Conc 33.2 g/dL (31.6-35.5); Mean Corpuscular Hemoglobin 31.3 pg (28.0-33.3); Mean Platelet Volume 10.3 fL (9.4-12.4); Monocytes # 0.6 K/mcL (0.0-1.3); Neutrophils # 9.1 K/mcL (1.6-8.9); Platelet Count 239 K/mcL (140-400); Red Blood Count 3.84 M/mcL (3.82-4.97); Red Cell Distribution Width 12.9 % (11.5-14.5); Segmented Neutrophils % 80.3 %; White Blood Count 11.4 K/mcL (4.3-11.1)
[2019-12-17 02:46] LABS: BUN/Creatinine Ratio 7 (6-26); Blood Urea Nitrogen 5 mg/dL (6-20); Calcium 9.3 mg/dL (8.6-10.3); Carbon Dioxide 27 mEq/L (23-29); Chloride 103 mEq/L (98-107); Glucose 134 mg/dL (70-105); Magnesium 1.5 mg/dL (1.6-2.6); Osmolality,Calculated 279 (280-300); Phosphorous 2.7 mg/dL (2.7-4.5); Potassium 3.5 mEq/L (3.5-5.1); Sodium 135 mEq/L (136-145); eGFR For African Americans > 60 (> 60); eGFR For Non-African Americans > 60 (> 60)
[2019-12-17] MEDS ORDERED: Lidocaine -MPF 2% 2 ML VIAL ONE (07:50)
[2019-12-17] MEDS ORDERED: 0.9 % Sodium Chloride 500 ML IVC SCH (09:00)
[2019-12-17] MEDS ORDERED: Ondansetron 4 MG/2 ML VIAL ONE (09:08)
[2019-12-17] MEDS ORDERED: Ondansetron 4 MG/2 ML VIAL IVP ONE (09:17)
[2019-12-17] MEDS: levETIRAcetam 250 MG TABLET PO SCH (11:08)
[2019-12-17] MEDS: Folic Acid 1 MG TABLET PO SCH (11:09)
[2019-12-17] MEDS: hydroCHLOROthiazide 25 MG TABLET PO SCH (11:10)
[2019-12-17] MEDS: Gabapentin 300 MG CAPSULE PO SCH (11:10)
[2019-12-17] MEDS: Spironolactone 25 MG TABLET PO SCH (11:10)
[2019-12-17] MEDS: Topiramate 25 MG TABLET PO SCH (11:10)
[2019-12-17] MEDS: Furosemide 20 MG TABLET PO SCH (11:10)
[2019-12-17] MEDS: BUPRENORPHIN NALOXON SL SCH (11:35)
[2019-12-17 12:44] VITALS: BP 148/99
== END 2019-12-17 13:55 | disposition home or self-care (01) ==
LOC: EMEROOARM 18:47 → 3BNU 18:47 → SUATTDRO 23:37 → 3BNU 12-15 00:12
PROVIDERS: ADMIT Student in an Organized Health Care Education/Training Program; ATTEND Internal Medicine